=== PATIENT | male | born 1955 | race Caucasian/White ===

== ENCOUNTER 2018-07-29 16:53 | Inpatient (IN) | payer SELFPAY ==
[~2018-07-29 16:53] MED LIST: ISOVUE-370 76%-LOCM 1 ML ONE
[2018-07-29 17:08] LABS: #Basophils 0.1 thou/uL (0.0-0.2); #Eosinphils 0.2 thou/uL (0.0-0.7); #Monocytes 0.7 thou/uL (0.11-0.59); #Neutrophils 6.4 thou/uL (1.40-6.50); %Basophils 0.9 % (0.0-1.0); %Eosinophils 2.4 % (0.0-10.0); %Lymphocytes 21.5 % (21.0-51.0); %Monocytes 7.8 % (0.0-10.0); %Neutrophils 67.4 % (42.0-75.0); Hemoglobin 15.3 g/dL (14.0-18.0); Mean Corpuscular HGB CONC 34.3 g/dL (32.0-36.0); Mean Corpuscular Hemoglobin 32.6 pg (27.0-31.0); Mean Corpuscular Volume 95.1 fL (78.0-98.0); Mean Platelet Volume 6.3 fL (7.4-10.4); Platelet Count 315 thou/uL (130-400); RBC Distribution Width 12.6 % (11.5-14.5); Red Blood Cell (RBC) Count 4.68 mill/uL (4.70-6.10); White Blood Cell (WBC) Count 9.4 thou/uL (4.8-10.8)
--- NOTE | 2018-07-29 17:10 | CT ---
CT head noncontrast HISTORY: Left-sided weakness. FINDINGS: There is no evidence of acute intracranial hemorrhage or infarct. The ventricles appear nor mal in size, shape and position. There is no mass affect or shift of midline structures. Visualized paranasal sinuses remain well-aerated. IMPRESSION: No acute intracranial abnormalities are demonstrated. Findings were called to Dr. Reddy in the emergency Department at 1703 hours. Code CR.
[2018-07-29 17:15] LABS: Prothrombin Time 13.1 SEC (12.0-14.7)
--- NOTE | 2018-07-29 17:18 | RAD ---
Chest one view HISTORY: Left-sided weakness. Altered mental status. FINDINGS: No comparison. Cardiac silhouette is magnified by projection. Pulmonary vasculature is unre markable. Mediastinum is midline. No lobar consolidation or pneumothorax. IMPRESSION: No active cardiopulmonary abnormalities are demonstrated.
[2018-07-29 17:22] LABS: ALT (SGPT) 36 U/L (8-55); AST (SGOT) 21 U/L (5-34); Albumin 3.9 g/dL (3.4-4.8); Alkaline Phosphatase 115 U/L (40-150); Anion Gap 13 mmol/L (10-20); BUN (Urea Nitrogen) 25 mg/dL (8.4-25.7); Bilirubin, Total 0.7 mg/dL (0.2-1.2); CK (CPK) 17 U/L (30-200); Calc. Creatinine Clearance 0 mL/min (70-130); Calcium 9.7 mg/dL (7.8-10.44); Carbon Dioxide 24 mmol/L (23-31); Chloride 100 mmol/L (98-107); Estimated GFR-MDRD 38; Globulin 4.8 g/dL (2.4-3.5); Glucose 173 mg/dL (80-115); Potassium 4.1 mmol/L (3.5-5.1); Protein, Total 8.7 g/dL (5.8-8.1); Sodium 133 mmol/L (136-145)
--- NOTE | 2018-07-29 17:34 | CT ---
CT arteriogram neck with IV contrast and 3-D MIP imaging: CT arteriogram head with IV contrast and 3-D MIP imaging CT head with IV contrast HISTORY: Left-sided weakness. CVA. FINDINGS: Normal branching of the great vessels at the aortic arch. Nonspecific lymph nodes within th e partially visualized upper mediastinum. Small nonspecific low density nodule within the right thyroid lobe. Good flow into each carotid and vertebral system. Minimal calcification. Internal carotid arteries ar e patent. [place] is intact. Good flow into each internal cerebral and cerebellar arterial system. No abnormal areas of intracranial enhancement are apparent. IMPRESSION: No significant abnormalities are demonstrated. Findings were called to Dr. Reddy in the emergency Department at 1728 hours. Code CR
[2018-07-29] MEDS ORDERED: Nitroglycerin 2% Ointment 1 INCH/1 GM Packet ONE (17:49)
[2018-07-29] MEDS ORDERED: Acetaminophen 500 MG TAB ONE (18:09)
--- NOTE | 2018-07-29 18:13 | PDOC.FPRHP ---
- History of Present Illness Chief Complaint: L side numbness History of Present Illness: 62 yo M with PMH of HTN and IN (2014) presents for acute onset L sided weakness and numbness, with slurring of speech. 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 Reports he ran the advertisement compositor into a pole. He reports mostly left sided numbness, slurring of speech, numb LUE and LLE. Reports his back hurt right when his symptoms started. Reports a headache upon awakening for past 4 months. Reports his eyes hurt, but denies vision changes. He took double his blood pressure medications before coming in to the ED (patient takes lisinopril and cardizem). Reports he has also had tachycardia seen on his phone's mary. Patient smokes 2-3 cigars daily for past 2- 3 yrs. Reports prior 1 pack year cigarette hx. Sister reports prior alcohol abuse with legal implications. Pt reports fam history of stroke in sister, and multiple MIs in siblings and parents. In ED, NIH initially 7. CT Head neg, Patient given TPA. CTA head/neck shows no vascular abnormality. - History PMHx: IN 2014, HTN PSHx: none FHx: multiple heart attacks - siblings, parents. Social: cigars 2-3 day for 2-3 yrs; previous hx cig 1 ppd; in legal action for alcohol use - Review of Systems General: denies: fever/chills, weight/appetite/sleep changes Eyes: reports: eye pain. denies: vision changes ENT: denies: nasal congestion, rhinorrhea Respiratory: denies: cough, congestion, shortness of breath Cardiovascular: denies: chest pain, palpitation, edema Gastrointestinal: denies: nausea, vomiting, diarrhea, constipation, abdominal pain, GI bleeding Genitourinary: denies: dysuria, other (hematuria) Musculoskeletal: denies: pain, tenderness Neurological: reports: numbness, weakness - Vital signs BP: [182/106] HR: [87] RR: [18] Tmax: [] Pox: [98]% on [RA] Wt: [79 kg] - Physical Exam Constitutional: NAD, awake, alert and oriented HEENT: normocephalic and atraumatic, PERRLA, EOMI, conjunctiva clear, MMM, oropharynx clear Neck: supple, no LAD Heart: RRR, normal S1/S2, no murmurs/rubs/gallops, pulses present, no edema Lungs: CTAB, no respiratory distress, good air movement, no wheezing Abdomen: soft, non-tender, bowel sounds present, no masses/distention Musculoskeletal: normal structure, normal tone Neurological: other (L facial droop and numbness, LUE 4/5 and numb, LLE 5/5 and numb Rt side normal strength 5/5 upper and lower. Somewhat slurred speech. FTN some difficulty. L pronator drift.) Skin: no rash/lesions, good turgor Heme/Lymphatic: no unusual bruising or bleeding, no purpura Psychiatric: normal mood and affect, other (somewhat of a poor historian) FMR H&P: Results - Labs Result Diagrams: 07/29/18 16:59 07/29/18 16:59 Lab results: WBC 9.4 thou/uL (4.8-10.8) 07/29/18 16:59 Hgb 15.3 g/dL (14.0-18.0) 07/29/18 16:59 Hct 44.5 % (42.0-52.0) 07/29/18 16:59 MCV 95.1 fL (78.0-98.0) 07/29/18 16:59 Plt Count 315 thou/uL (130-400) 07/29/18 16:59 Neutrophils % 67.4 % (42.0-75.0) 07/29/18 16:59 Sodium 133 mmol/L (136-145) L 07/29/18 16:59 Potassium 4.1 mmol/L (3.5-5.1) 07/29/18 16:59 Chloride 100 mmol/L (98-107) 07/29/18 16:59 Carbon Dioxide 24 mmol/L (23-31) 07/29/18 16:59 BUN 25 mg/dL (8.4-25.7) 07/29/18 16:59 Creatinine 1.83 mg/dL (0.7-1.3) H 07/29/18 16:59 Glucose 173 mg/dL (80-115) H 07/29/18 16:59 Calcium 9.7 mg/dL (7.8-10.44) 07/29/18 16:59 Total Bilirubin 0.7 mg/dL (0.2-1.2) 07/29/18 16:59 AST 21 U/L (5-34) 07/29/18 16:59 ALT 36 U/L (8-55) 07/29/18 16:59 Alkaline Phosphatase 115 U/L (40-150) 07/29/18 16:59 Creatine Kinase 17 U/L (30-200) L 07/29/18 16:59 Serum Total Protein 8.7 g/dL (5.8-8.1) H 07/29/18 16:59 Albumin 3.9 g/dL (3.4-4.8) 07/29/18 16:59 - EKG Interpretation EKG: NSR 83, possible LVH FMR H&P: A/P - Problem List (1) Acute CVA (cerebrovascular accident) Current Visit: Yes Status: Acute Code(s): I63.9 - CEREBRAL INFARCTION, UNSPECIFIED (2) HTN (hypertension) Current Visit: Yes Status: Acute Code(s): I10 - ESSENTIAL (PRIMARY) HYPERTENSION (3) Tobacco abuse Current Visit: Yes Status: Chronic Code(s): Z72.0 - TOBACCO USE (4) Hx of myocardial infarction Current Visit: Yes Status: Acute Code(s): I25.2 - OLD MYOCARDIAL INFARCTION - Plan Acute CVA vs TIA - L sided facial droop, L arm and leg weakness and numbness - CT head neg, CTA head/neck normal - Initial NIH of 7 - S/p TPA, NIH now improved to 5 - admit to ICU for Post tpa protocol: control BP <180/105, no blood draws/ sticks for 24 hrs - UDS negative - NPO for speech - PT/OT consulted - [address] placed, may switch to MRI tomorrow - No aspirin/dvt ppx for next 24 hrs - After 24 hrs post TPA, will order TSH, FLP, Mag, Phos; will consider starting atorvastatin/asp/plavix at that time - Neuro consult in AM - Continue to monitor BP closely HTN -continue home medications Past hx IN, 2014 - aware tobacco use - employment counselor cessation Diet: NPO for speech DVT ppx: none GI ppx: none Dispo: admit to CCU inpatient for post TPA protocol PCP: Dr. Benedict Code status: Full code FMR H&P: Upper Level - Pertinent history 62 y/o M Mr Shakeel (Yasmany) presents with L sided weakness. Hx/o HTN, previous IN, and ETOH abuse. Began today with paresthesias on L side, MORGAN, slurring of speech and L sided weakness. Significant FH for CAD and early MIs. Given nitro patch for BP control in ED without much improvement. Does currently admit to MORGAN after nitro paste given. - Pertinent findings CTA head/neck: No abnormality Troponin: WNL Cr/GFR: 1.83 and 38 - Plan Date/Time: 07/29/181811 I, Hitesh Bojorquez, have evaluated this patient and agree with findings/plan as outlined by sports team marketing intern resident. Pertinent changes/additions are listed here. 1. Acute CVA - L sided facial droop and weakness that has already improved since arrival with tPA. S/p tPA administration. Will hold ASA and plan to continue statin upon discharge. tPA protocol initiated. BP goal <180/105 and will use PRN antihypertensive medications. 2. S/p tPA administration - as above 3. CHIQUITA - Will give gentle IVF. Unsure of baseline renal function. Will obtain urine studies for additional evaluation. 4. Hyperglycemia - will order A1c; no hx/o DM. Control with SSI overnight. 5. Hx/o IN - no acute issues 6. Tobacco abuse - Reflow Operator on smoking cessation. 7. Hx/o ETOH abuse - DWI months ago. Not been drinking in recent weeks. Addendum - Attending - Attending Attestation Date/Time: 07/29/182010 I personally evaluated the patient and discussed the management with Dr. Billings/ Maryellen I agree with the History, Examination, Assessment and Plan documented above with any addition or exceptions noted below. 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 Patient to ER with Initial NIH stroke score 7 and ruled in for TPA treatment at time of my exam in ER left facial paralysis and facial droop persist but improved strength Left upper ext. Patient HTN on ACEI and Cardizem 180. Patient with history ETOH abuse DWI x 3 he denies current drinking. Patient 3 children attended by sister in ER. FMHX prevalence CAD in parents and siblings. Patient states he had heart attack several years ago but sought no treatment. CHIQUITA noted initial Lab. Initial troponin negative. Admit to ICU for TPA protocol f/u swallow study ,cardiac monitoring, f/u MRI and PT/OT evaluation, fluid and electrolyte monitoring, control BP 180/105 first 24 hours s/p TPA per protocol, Consider high intensity statin when able take po and ASA per protocol. Rec observation ETOH withdrawal although patient denies any recent heavy drinking or hx of prior DTs.
[2018-07-29 19:13] LABS: Amphetamine Not Detected (NotDetected); Barbiturates Screen Not Detected (NotDetected); Benzodiazepine Screen Not Detected (NotDetected); Cocaine Metabolite Screen Not Detected (NotDetected); Medtox Control Line Valid? VALID (VALID); Medtox Reader # READER 1; Methadone Not Detected (NotDetected); Methamphetamine Not Detected (NotDetected); Opiate Screen Not Detected (NotDetected); Oxycodone Screen Not Detected (NotDetected); Phencyclidine (PCP) Not Detected (NotDetected); THC/Cannabinoid Screen Not Detected (NotDetected); Tricyclic Screen Not Detected (NotDetected)
[2018-07-29 19:23] LABS: Bilirubin Negative (Negative); Blood, Urine Negative (Negative); Clarity CLEAR (Clear); Glucose, Urine (Dipstick) Negative (Negative); Leukocyte Negative (Negative); Nitrite Negative (Negative); Protein, Urine (Dipstick) 30 mg/dL (Neg-Trace); Specific Gravity, Urine 1.024 (1.002-1.036)
[2018-07-29 19:26] LABS: Bacteria/HPF None Seen HPF (None Seen); Hyaline Casts/LPF 0-3 HYALINE CAST LPF (0-3 Hyaline); RBC/HPF 0-3 HPF (0-3); Squamous Epithelial None Seen HPF (0-3); WBC/HPF 0-3 HPF (0-3)
[2018-07-29] MEDS ORDERED: Ondansetron PF 4 MG/2 ML Vial ONE (20:28)
[2018-07-29] MEDS ORDERED: niCARdipine HCl 25 MG in Sodium Chloride 0.9% 250 ML 240 ML IVPB PRN (22:30)
[2018-07-29] MEDS ORDERED: Labetalol HCl 100 MG/20 ML VIAL SLOW IVP PRN (22:30)
[2018-07-29] MEDS ORDERED: Morphine 2 MG/ML SYRINGE SLOW IVP PRN (23:11)
[2018-07-30] MEDS: Communication Order-Pharmacy FS SCH (03:24)
[2018-07-30] MEDS: Sodium Chloride 0.9% 1,000 ML IV SCH ×4 (03:30→19:15)
--- NOTE | 2018-07-30 04:09 | PDOC.EVN ---
Event Note - Event Note Event Note: Colby hunt called from ED for acute mental status changes. Nurse was concerned, pt was drooling more, was not moving his left arm, was acting confused. Repeat CT head ordered to evaluate for intracranial bleeding. On arrival to room, patient was alert and oriented to person and self, new the president, could not tell us the date. Moving left arm. Appeared to be same as when we saw him prior. Patient's mentation change most likely due to sleepiness, as back at previous baseline once fully awake. Repeat CT head pending.
--- NOTE | 2018-07-30 06:12 | PDOC.FM ---
Addendum entered and electronically signed by Corwin Astorga MD 07/30/18 06: 59: Additional Problem CHIQUITA vs CKD - Unknown baseline - Cr 1.83 on admission - Will monitor following TPA window. Original Note: - Subjective Subjective: 62 yo male seen at bedside this AM. Patient was given TPA for acute CVA on . Patient is A&O x3 however he repetitively states he is confused. He notes that since he has been in the ED it has been a "whirlwind." He is able to articulate clearly and can follow along in conversations. Patient denies any pain, but does complain of difficulty controlling his LUE. No other complaints overnight. - Objective Vital Signs & Weight: Vital Signs (12 hours) Temp Temp Pulse Resp BP Pulse Ox Pulse Ox 07/30/18 01:35 97.7 F 95 07/30/18 00:08 98.0 F 91 18 155/100 H 98 Weight Weight 71.4 kg Most Recent Monitor Data Heart Rate from ECG 78 NIBP 149/84 NIBP BP-Mean 105 Respiration from ECG 26 SpO2 99 I&O: 07/28/18 07/29/18 07/30/18 06:59 06:59 06:59 Intake Total 0 Output Total 300 Balance -300 Result Diagrams: 07/29/18 16:59 07/29/18 16:59 Phys Exam - Physical Examination Constitutional: NAD HEENT: moist MMs Respiratory: no wheezing, clear to auscultation bilateral Cardiovascular: RRR, no significant murmur Gastrointestinal: soft, non-tender, no distention, positive bowel sounds Musculoskeletal: no edema, pulses present Neurological: moves all 4 limbs LUE weakness and clumsiness. Left facial droop. Psychiatric: A&O x 3 Skin: no rash Dx/Plan (1) Acute CVA (cerebrovascular accident) Code(s): I63.9 - CEREBRAL INFARCTION, UNSPECIFIED Status: Acute (2) HTN (hypertension) Code(s): I10 - ESSENTIAL (PRIMARY) HYPERTENSION Status: Acute Qualifiers: Hypertension type: essential hypertension Qualified Code(s): I10 - Essential (primary) hypertension (3) Hx of myocardial infarction Code(s): I25.2 - OLD MYOCARDIAL INFARCTION Status: Acute (4) Tobacco abuse Code(s): Z72.0 - TOBACCO USE Status: Chronic - Plan Plan: Acute CVA vs TIA - L sided facial droop, L arm and leg weakness and numbness - CT head neg, CTA head/neck normal - Initial NIH of 7 - S/p TPA, NIH now improved to 5 - Repeat CT in ED due to worsening symptoms showed no acute changes. - admit to ICU for Post tpa protocol: control BP <180/105, no blood draws/ sticks for 24 hrs - UDS negative - NPO for speech - PT/OT consulted - [address] placed - Consider MRI - No aspirin/dvt ppx for next 24 hrs - Will consider starting atorvastatin/asp/plavix after TPA window - Neuro consulted, appreciate recs - Continue to monitor BP closely - Patient is uninsured, will make Case Management aware for possible support. HTN -continue home medications - Diltiazem and Lisinopril at home. Past hx [place], 2015 - aware tobacco use - work counselor cessation Disposition: Stable, will continue current plan of care. Addendum - Attending - Attending Attestation Date/Time: 07/30/18 0900 I personally evaluated the patient and discussed the management with Dr. Astorga I agree with the History, Examination, Assessment and Plan documented above with any addition or exceptions noted below. 62 yo male with history of FL, HTN, and detention tobacco use admitted for ischemic CVA HD#1 Patient doing well. No acute changes overnight. Denies pain. Reports being sleepy. Able to move right and left sides. VS reviewed. Labs reviewed. Imaging reviewed. Agree with PE as documented. 1. Ischemic CVA s/p TPA: NIH score improved to 5. Able to move previously affected side. MRI in AM. Hold needle sticks until 1800 today. Stroke team following. Will need to start planing for dispo. At this point appears patient would be stable for home at discharge. Improve secondary prevention. Add FLP to AM lab. 2. HTN: Monitor closely. Keep < 160/95. Adjust home meds. 3. Tobacco Use: Cessation discussed. 4. hx of FL: Improve secondary prevention. Dispo: Patient PCP covered by [facility] [place] group. Will transfer care. Sandra
--- NOTE | 2018-07-30 08:09 | CT ---
PRELIMINARY REPORT/[facility]/EMERGENCY AFTER HOURS PROCEDURE: EXAM: CT Head Without Contrast EXAM DATE/TIME: 07/30/2018 1:17 AM CLINICAL HISTORY: 62 years old, male; Signs and symptoms; Altered mental status/memory loss; Patient HX: PT was stroke alert at 1700. PT had contrast given then. Since has been a code green for excessive tiredness and dr martin. PT reports he is very sleepy, says he's afraid he's "going to fall asleep and . " similar findings of mild weakness to l arm, awake and answering questions, no complaints of pain, small amoun t of drooling w/ l facial weakness. 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 PT lsn around 16: 00. PT l-side dominant, pmhx of HTN; Additional info: Previous images and reports have been sent and faxed. TECHNIQUE: Imaging protocol: Axial computed tomography images of the head/brain without contrast. COMPARISON: CT Brain WO Con 07/29/2018 5:00 PM FINDINGS: Brain: No acute intracranial hemorrhage or mass effect. There is mild decreased attenuation in the periventricular white matter, likely from microvascular di sease. There is a small old lacunar infarct in the right supraventricular white matter, similar to prior exa m. No definite acute infarct by CT. MRI could be more sensitive/specific for detection, as clinically di rected. Ventricles: Ventricle size is normal for age. Bones/joints: No definite acute skull fracture. Sinuses: Included paranasal sinuses are essentially clear. Mastoid air cells: No significant acute finding. IMPRESSION: 1. No acute intracranial bleed or mass effect. 2. Changes of microvascular disease, and old right lacunar infarct. 3. No definite acute infarct by CT, see above. Thank you for allowing us to participate in the care of your patient. Dictated and Authenticated by: Merrill Lagos MD 07/30/2018 2:01 AM Central Time ([place] & [place]) FINAL REPORT EMERGENCY AFTER HOURS CT OF BRAIN PERFORMED WITHOUT CONTRAST ENHANCEMENT: Date: 07/30/18 HISTORY: Stroke alert, somnolence, altered mental status, mild weakness to left arm. COMPARISON: 07/29/18. FINDINGS: Ventricular and cisternal system is within normal limits. There is an area of decreased attenuation w ithin the right periventricular white matter seen on the prior examination, consistent with an old la cunar infarct. No intracerebral hemorrhage or extra-axial fluid collections. IMPRESSION: No acute intracranial abnormalities. This report is in agreement with the preliminary report issued by [facility]. POS: GAYE
[2018-07-30] MEDS ORDERED: niCARdipine HCl 25 MG in Sodium Chloride 0.9% 250 ML 240 ML IVPB PRN (10:01)
--- NOTE | 2018-07-30 10:49 | PDOC.PN ---
- Subjective Encounter Start Date: 07/30/18 Encounter Start Time: 10:48 Subjective: CVA with L memipegia, L central 7th- ost TPA - Objective Resuscitation Status - Order Detail: 07/29/18 18:49 Resuscitation Status Routine Co-Sign Provider: Resuscitation Status: FULL: Full Resuscitation Discussed with: patient MAXIME Reviewed: Yes Vital Signs & Weight: Vital Signs (12 hours) Temp Temp Pulse Pulse Resp BP BP 07/30/18 08:29 85 185/104 H 07/30/18 07:00 98.6 F 07/30/18 04:00 98.6 F 07/30/18 01:35 97.7 F 07/30/18 00:08 98.0 F 91 18 155/100 H Pulse Ox Pulse Ox 07/30/18 08:29 07/30/18 07:00 07/30/18 04:00 07/30/18 01:35 95 07/30/18 00:08 98 Weight Weight 157 lb 6.561 oz Most Recent Monitor Data Heart Rate from ECG 81 NIBP 156/97 NIBP BP-Mean 116 Respiration from ECG 21 SpO2 98 I&O: 07/29/18 07/30/18 07/31/18 06:59 06:59 06:59 Intake Total 0 0 Output Total 600 0 Balance -600 0 Result Diagrams: 07/29/18 16:59 07/29/18 16:59 Additional Labs: Accuchecks 07/29/18 17:00 POC Glucose 169 H Phys Exam - Physical Examination Neck: no JVD Respiratory: clear to auscultation bilateral Cardiovascular: RRR, no significant murmur Gastrointestinal: soft, positive bowel sounds Musculoskeletal: no edema L central 7th palsy, dense L hemiplegia Dx/Plan (1) CVA (cerebral vascular accident) Code(s): I63.9 - CEREBRAL INFARCTION, UNSPECIFIED Status: Acute Qualifiers: CVA mechanism: thrombosis Precerebral and cerebral artery: middle cerebral artery Laterality of affected vessel: right Qualified Code(s): I63.311 - Cerebral infarction due to thrombosis of right middle cerebral artery (2) CAD (coronary artery disease) Code(s): I25.10 - ATHSCL HEART DISEASE OF [place] CORONARY ARTERY W/O ANG PCTRS Status: Acute Qualifiers: Coronary Disease-Associated Artery/Lesion type: [place] artery [place] vs. transplanted heart: [place] heart Associated angina: without angina Qualified Code(s): I25.10 - Atherosclerotic heart disease of [place] coronary artery without angina pectoris (3) Acute renal failure Status: Acute Qualifiers: Acute renal failure type: unspecified Qualified Code(s): N17.9 - Acute kidney failure, unspecified (4) HTN (hypertension) Code(s): I10 - ESSENTIAL (PRIMARY) HYPERTENSION Status: Acute Qualifiers: Hypertension type: essential hypertension Qualified Code(s): I10 - Essential (primary) hypertension (5) Tobacco abuse Code(s): Z72.0 - TOBACCO USE Status: Chronic - Plan POST TPA, -: on cardene for BP -: [facility] 07/31/18 at request of Residency program- -: patients PCP covered by [facility] * .
[2018-07-30] MEDS: Labetalol HCl 100 MG/20 ML VIAL SLOW IVP PRN ×3 (12:05→19:14)
--- NOTE | 2018-07-30 14:28 | CON ---
DATE OF CONSULTATION: 07/30/2018 REASON FOR CONSULTATION: Stroke and ICU placement. HISTORY OF PRESENT ILLNESS: This is a 62-year-old male, who presented with left arm weakness, left facial droop, and slurred speech. He was actually given tPA yesterday and has recovered some strength in his left arm. PAST MEDICAL HISTORY: 1. Myocardial infarction in 2004. 2. Hypertension. PAST SURGICAL HISTORY: None. FAMILY MEDICAL HISTORY: Remarkable for heart disease. SOCIAL HISTORY: Smokes 2 to 3 cigars per day, previously smoked 1 pack per day of cigarettes. Previously used alcohol heavily. ALLERGIES: NONE. MEDICATIONS: Prior to admission; 1. Lisinopril 5 mg daily. 2. Diltiazem 180 mg daily. REVIEW OF SYSTEMS: Otherwise negative. PHYSICAL EXAMINATION: VITAL SIGNS: Temperature 98.6; pulse 84; and blood pressure 156/82, generally it been running in the 150s to 160s. HEENT: He has obvious left-sided facial droop. Tongue protrudes midline. No oculocephalic impairments. NECK: No JVD. CHEST: Clear to auscultation. CARDIAC: S1 and S2 regular without murmur. ABDOMEN: Soft and nontender. EXTREMITIES: No clubbing, cyanosis, or edema. NEUROLOGIC: Muscle strength 4/5 in left arm, 5/5 in right arm, and 5/5 in right leg and left leg. LABORATORY DATA: White blood cell count 9.4, hematocrit 44.5, and platelet count 315. Sodium 133, potassium 4.1, BUN 25, creatinine 1.8, and glucose 173. Drug screen was negative. IMAGING STUDIES: Chest x-ray is negative. Head CT did not show any abnormalities. ASSESSMENT: 1. Cerebrovascular accident with left arm impairment and left facial droop. 2. Hypertension. RECOMMENDATIONS: 1. Neurology has been consulted. 2. Need to try to achieve better systolic blood pressure control. 3. Probably needs to start aspirin later today. 4. Stroke rehab. 5. Stable for transfer to floor when his 24-hour tPA clock is come about. Job ID: [id number]
--- NOTE | 2018-07-30 18:40 | PDOC.EVN ---
Event Note - Event Note Event Note: Documentation error: Patient is seen by PCP with contract with [facility] physicians. Dr. Tenorio, [facility] Phys[facility], has accepted transfer of care to become primary team onn 07/31/18. Dr. Kaur Felipe, FMR attending, aware and agreeable to plan.
[2018-07-30] MEDS: Atorvastatin Calcium 40 MG TAB PO SCH (20:29)
[2018-07-30] MEDS ORDERED: Aspirin Chewable 81 MG TAB PO SCH (22:00)
[2018-07-31] MEDS ORDERED: Lorazepam 2 MG/ML VIAL SLOW IVP SCH (04:15)
[2018-07-31 05:05] LABS: Cardiac Risk 5.4 (Less than 4.5); Cholesterol 162 mg/dl (< 200 Desired); HDL Cholesterol 30 mg/dL (>60 Neg Risk); LDL Cholesterol, Calculated 104 mg/dL; Magnesium 1.9 mg/dL (1.6-2.6); Triglycerides 140 mg/dL (Less than 150)
[2018-07-31] MEDS: Sodium Chloride 0.9% 1,000 ML IV SCH (05:56)
[2018-07-31] MEDS: Communication Order-Pharmacy FS SCH ×2 (05:57→21:32)
[2018-07-31] MEDS: Labetalol HCl 100 MG/20 ML VIAL SLOW IVP PRN ×3 (07:25→13:25)
--- NOTE | 2018-07-31 08:02 | PRG ---
DATE OF SERVICE: 07/31/2018 SUBJECTIVE: The patient is now over 24 hours after his tPA. He has had some residual recovery of his left arm. He still has left facial droop. OBJECTIVE: VITAL SIGNS: Temperature is 98.2, pulse 99, blood pressure 173/104, O2 saturation 100%. HEENT: Unremarkable except for the left facial droop. NECK: No JVD. LUNGS: Clear. CARDIAC: S1, S2. Regular. ABDOMEN: Soft. EXTREMITIES: No edema. NEUROLOGICAL: He still has 4/5 strength on the left arm, 5/5 throughout otherwise. LABORATORY DATA: Phosphorus 3, magnesium 1.9, HDL 30, LDL 104. ASSESSMENT: Status post cerebrovascular accident. PLAN: 1. Transfer to Stroke Floor for rehab. 2. Re-initiate the patient's outpatient lisinopril and diltiazem for blood pressure control. 3. No further pulmonary recommendations, we will sign off. Job ID: [id number]
[2018-07-31] MEDS: Aspirin Chewable 81 MG TAB PO SCH (08:35)
[2018-07-31] MEDS ORDERED: Lisinopril 5 MG TAB PO SCH ×2 (09:00→12:00)
[2018-07-31 09:36] LABS: #Eosinphils 0.2 thou/uL (0.0-0.7); #Lymphocytes 1.6 thou/uL (1.20-3.40); #Monocytes 0.7 thou/uL (0.11-0.59); #Neutrophils 6.2 thou/uL (1.40-6.50); %Basophils 0.3 % (0.0-1.0); %Eosinophils 1.7 % (0.0-10.0); %Lymphocytes 18.7 % (21.0-51.0); %Monocytes 7.8 % (0.0-10.0); %Neutrophils 71.5 % (42.0-75.0); Hemoglobin 14.8 g/dL (14.0-18.0); Mean Corpuscular HGB CONC 32.7 g/dL (32.0-36.0); Mean Corpuscular Hemoglobin 31.3 pg (27.0-31.0); Mean Corpuscular Volume 95.8 fL (78.0-98.0); Mean Platelet Volume 6.5 fL (7.4-10.4); Platelet Count 294 thou/uL (130-400); RBC Distribution Width 12.6 % (11.5-14.5); Red Blood Cell (RBC) Count 4.72 mill/uL (4.70-6.10); White Blood Cell (WBC) Count 8.7 thou/uL (4.8-10.8)
[2018-07-31 10:01] LABS: Anion Gap 12 mmol/L (10-20); BUN (Urea Nitrogen) 14 mg/dL (8.4-25.7); Calc. Creatinine Clearance 60 mL/min (70-130); Calcium 9.3 mg/dL (7.8-10.44); Carbon Dioxide 22 mmol/L (23-31); Chloride 103 mmol/L (98-107); Estimated GFR-MDRD 57; Glucose 151 mg/dL (80-115); Potassium 4.1 mmol/L (3.5-5.1); Sodium 133 mmol/L (136-145)
[2018-07-31] MEDS ORDERED: Lorazepam 0.5 MG TAB PO PRN (11:49)
[2018-07-31] MEDS: Nicotine 14 MG PATCH TD SCH (12:46)
--- NOTE | 2018-07-31 15:15 | MRI ---
MRI Brain WO Con: 07/31/2018 8:00 AM CLINICAL HISTORY: Hypersomnolence with altered mental status and left arm weakness. COMPARISON: CT head, previous day FINDINGS: Extra axial spaces: Normal in size and morphology for the patient's age. Hemorrhage: None. Ventricular system: Normal in size and morphology for the patient's age. Basal cisterns: Normal. Cerebral parenchyma: Multifocal restricted diffusion is present involving the cortex and white matter of the right frontal lobe as well as within the right globus pallidus and within the deep white matter of the right parietal lobe. There is microvascular ischemic disease. Midline shift: None. Cerebellum: Normal. Brainstem: Normal. Paranasal sinuses:Mild paranasal sinus mucosal thickening IMPRESSION:Multifocal recent infarctions of the right cerebral hemisphere. Findings predominantly loc alized to the anterior division of right MCA territory.
--- NOTE | 2018-07-31 16:25 | PDOC.PN ---
- Subjective Encounter Start Date: 07/31/18 Encounter Start Time: 11:23 Subjective: Seen and examined -: complains of ill feeling but cannot pinpoint any symptoms - Objective Resuscitation Status - Order Detail: 07/29/18 18:49 Resuscitation Status Routine Co-Sign Provider: Resuscitation Status: FULL: Full Resuscitation Discussed with: patient Vital Signs & Weight: Vital Signs (12 hours) Temp Pulse Pulse Pulse Resp BP BP 07/31/18 15:48 98.3 F 80 16 07/31/18 13:44 97.3 F L 73 20 07/31/18 13:25 87 189/104 H 07/31/18 13:00 97.6 F 07/31/18 12:38 87 167/106 H 07/31/18 10:40 85 76 181/110 H 07/31/18 10:32 87 181/110 H 07/31/18 09:00 98.6 F 07/31/18 08:35 80 173/104 H 07/31/18 08:00 07/31/18 07:25 80 173/104 H BP BP Pulse Ox Pulse Ox Pulse Ox 07/31/18 15:48 168/98 H 97 07/31/18 13:44 165/92 H 99 07/31/18 13:25 07/31/18 13:00 07/31/18 12:38 07/31/18 10:40 193/106 H 98 98 07/31/18 10:32 07/31/18 09:00 07/31/18 08:35 07/31/18 08:00 98 07/31/18 07:25 Weight Admit Weight 157 lb Weight 157 lb 8.32 oz Most Recent Monitor Data Heart Rate from ECG 78 NIBP 178/104 NIBP BP-Mean 128 Respiration from ECG 20 SpO2 100 I&O: 07/30/18 07/31/18 08/01/18 06:59 06:59 06:59 Intake Total 0 4208 780 Output Total 600 3615 900 Balance -600 593 -120 Result Diagrams: 07/31/18 09:33 07/31/18 09:33 Phys Exam - Physical Examination Constitutional: NAD HEENT: PERRLA, moist MMs Neck: supple fair air entry bilaterally with no crackles or rhonchi Cardiovascular: RRR Gastrointestinal: soft, non-tender, no distention, positive bowel sounds Musculoskeletal: no edema, pulses present conscious andalert, oriented x3. Moves all limbs Mild left hemiparesis noted.5/5 right limbs and 3-4/5 left limbs Deviation from normal: anxious and some agitation. Dx/Plan (1) CHIQUITA (acute kidney injury) Code(s): N17.9 - ACUTE KIDNEY FAILURE, UNSPECIFIED Status: Acute (2) Acute CVA (cerebrovascular accident) Code(s): I63.9 - CEREBRAL INFARCTION, UNSPECIFIED Status: Acute (3) CAD (coronary artery disease) Code(s): I25.10 - ATHSCL HEART DISEASE OF [place] CORONARY ARTERY W/O ANG PCTRS Status: Acute Qualifiers: Coronary Disease-Associated Artery/Lesion type: [place] artery [place] vs. transplanted heart: [place] heart Associated angina: without angina Qualified Code(s): I25.10 - Atherosclerotic heart disease of [place] coronary artery without angina pectoris (4) HTN (hypertension) Code(s): I10 - ESSENTIAL (PRIMARY) HYPERTENSION Status: Acute Qualifiers: Hypertension type: essential hypertension Qualified Code(s): I10 - Essential (primary) hypertension (5) Tobacco abuse Code(s): Z72.0 - TOBACCO USE Status: Chronic - Plan Increase lisinopril to 10 mg Daily. -: Start nicotine patch and prn ativan. -: Get UDS. Get Echo. 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 Transfer to stroke unit. Continue other treatments * .
[2018-07-31 18:35] LABS: Amphetamine Not Detected (NotDetected); Barbiturates Screen Not Detected (NotDetected); Benzodiazepine Screen Not Detected (NotDetected); Cocaine Metabolite Screen Not Detected (NotDetected); Medtox Control Line Valid? VALID (VALID); Medtox Reader # READER 1; Methadone Not Detected (NotDetected); Methamphetamine Not Detected (NotDetected); Opiate Screen Not Detected (NotDetected); Oxycodone Screen Not Detected (NotDetected); Phencyclidine (PCP) Not Detected (NotDetected); THC/Cannabinoid Screen Not Detected (NotDetected); Tricyclic Screen Not Detected (NotDetected)
[2018-07-31] MEDS: Atorvastatin Calcium 40 MG TAB PO SCH (21:26)
--- NOTE | 2018-07-31 23:33 | CON ---
DATE OF CONSULTATION: 07/31/2018 CONSULTING PHYSICIAN: Hospitalist Services. IMPRESSION: 1. Probable lacunar infarction. 2. Hypertension. 3. Tobacco use. PLAN: 1. Discontinue tobacco. 2. Continue aspirin. 3. Continue statin. 4. PT and OT evaluations. HISTORY OF PRESENT ILLNESS: Mr. Beckford is a 62-year-old man, who came in with acute onset of left hemiparesis. Initial CT and CT angiogram did not show any large-vessel occlusion. He was deemed to be a tPA candidate, which was administered. He was then transferred to the ICU. His symptoms have improved a bit since admission. He denies any prior history of stroke. He was not on aspirin prior to admission. He was noted to have an elevated blood sugar. He has otherwise been stable. PAST MEDICAL HISTORY: Hypertension, coronary artery disease. SOCIAL HISTORY: Positive tobacco. FAMILY HISTORY: Noncontributory. MEDICATIONS: Medication list was reviewed. REVIEW OF SYSTEMS: A 10-system review of systems is otherwise negative. PHYSICAL EXAMINATION: GENERAL: He is a thin, middle-aged man, lying in bed, in no acute distress. VITAL SIGNS: Blood pressure 161/94, pulse 88, respirations 16, and temperature 97.3. HEENT: Pupils are equal and reactive. Conjunctivae are clear. Oropharynx is clear. NECK: Supple. No lymphadenopathy. EXTREMITIES: No cyanosis, clubbing, or edema. NEUROLOGIC: He is alert and cooperative. His speech is mildly dysarthric but fluent. Cranial nerve exam is notable for significant left facial droop. Motor exam shows antigravity strength in the left arm with diminished fine motor control and rapid alternating movements. He is able to walk to the bathroom with some assistance. Sensation is intact to touch. No abnormal movements are seen. DIAGNOSTIC DATA: EKG shows a sinus rhythm. MRI of the brain shows some multifocal small areas of infarction in the right middle cerebral artery territory. SUMMARY: He is a middle-aged man with acute stroke symptoms. There is some concern for an embolic event, but more likely thromboembolic, related to underlying vascular disease. Echocardiogram should be completed and I agree with current treatment, otherwise. Job ID: [id number]
[2018-08-01 05:33] LABS: Anion Gap 13 mmol/L (10-20); BUN (Urea Nitrogen) 17 mg/dL (8.4-25.7); Calc. Creatinine Clearance 54 mL/min (70-130); Calcium 9.2 mg/dL (7.8-10.44); Carbon Dioxide 22 mmol/L (23-31); Chloride 104 mmol/L (98-107); Estimated GFR-MDRD 51; Glucose 110 mg/dL (80-115); Potassium 3.8 mmol/L (3.5-5.1); Sodium 135 mmol/L (136-145)
[2018-08-01] MEDS ORDERED: Lisinopril 10 MG TAB PO SCH (09:00)
[2018-08-01] MEDS ORDERED: Amlodipine 10 MG TAB PO SCH (09:15)
[2018-08-01] MEDS: Aspirin Chewable 81 MG TAB PO SCH (09:32)
[2018-08-01] MEDS: Nicotine 14 MG PATCH TD SCH (11:54)
[2018-08-01 13:47] VITALS: BMI 22.3
[2018-08-01] MEDS: Atorvastatin Calcium 40 MG TAB PO SCH (20:18)
--- NOTE | 2018-08-01 21:33 | PDOC.PN ---
- Subjective Encounter Start Date: 08/01/18 Encounter Start Time: 21:32 Subjective: No new problem - Objective Resuscitation Status - Order Detail: 07/29/18 18:49 Resuscitation Status Routine Co-Sign Provider: Resuscitation Status: FULL: Full Resuscitation Discussed with: patient Vital Signs & Weight: Vital Signs (12 hours) Temp Pulse Pulse Pulse Resp BP BP 08/01/18 20:07 97.8 F 98 16 08/01/18 16:00 98.5 F 96 18 165/94 H 08/01/18 14:25 111 H 97 144/99 H 08/01/18 12:00 98.2 F 99 16 162/104 H 08/01/18 11:58 08/01/18 10:27 97 171/99 H BP BP Pulse Ox 08/01/18 20:07 156/93 H 96 08/01/18 16:00 165/94 H 96 08/01/18 14:25 154/93 H 08/01/18 12:00 143/103 H 96 08/01/18 11:58 162/104 H 08/01/18 10:27 Weight Admit Weight 157 lb Weight 169 lb Most Recent Monitor Data Heart Rate from ECG 78 NIBP 178/104 NIBP BP-Mean 128 Respiration from ECG 20 SpO2 100 I&O: 07/31/18 08/01/18 08/02/18 06:59 06:59 06:59 Intake Total 4208 1275 263 Output Total 3615 1050 Balance 593 225 263 Result Diagrams: 07/31/18 09:33 08/01/18 04:22 Phys Exam - Physical Examination Constitutional: NAD HEENT: moist MMs Neck: no JVD, supple Respiratory: no rales, no rhonchi Cardiovascular: RRR Gastrointestinal: soft, non-tender, no distention, positive bowel sounds Musculoskeletal: no edema, pulses present Conscious and alert, left mild hemiparesis noted Psychiatric: A&O x 3 Dx/Plan (1) CHIQUITA (acute kidney injury) Code(s): N17.9 - ACUTE KIDNEY FAILURE, UNSPECIFIED Status: Acute Comment: Creat is up today after trending downwards. Was started on ACEI yesterday (2) Acute CVA (cerebrovascular accident) Code(s): I63.9 - CEREBRAL INFARCTION, UNSPECIFIED Status: Acute (3) CAD (coronary artery disease) Code(s): I25.10 - ATHSCL HEART DISEASE OF [place] CORONARY ARTERY W/O ANG PCTRS Status: Acute Qualifiers: Coronary Disease-Associated Artery/Lesion type: [place] artery [place] vs. transplanted heart: [place] heart Associated angina: without angina Qualified Code(s): I25.10 - Atherosclerotic heart disease of [place] coronary artery without angina pectoris (4) HTN (hypertension) Code(s): I10 - ESSENTIAL (PRIMARY) HYPERTENSION Status: Acute Qualifiers: Hypertension type: essential hypertension Qualified Code(s): I10 - Essential (primary) hypertension (5) Tobacco abuse Code(s): Z72.0 - TOBACCO USE Status: Chronic - Plan Start amlodipine and dc ACEI -: Monitor renal function in the am. -: [place] oral intake advised -: Continue other treatments * .
[2018-08-02 05:40] LABS: Anion Gap 15 mmol/L (10-20); BUN (Urea Nitrogen) 20 mg/dL (8.4-25.7); Calc. Creatinine Clearance 59 mL/min (70-130); Calcium 9.7 mg/dL (7.8-10.44); Carbon Dioxide 19 mmol/L (23-31); Chloride 104 mmol/L (98-107); Estimated GFR-MDRD 51; Glucose 119 mg/dL (80-115); Sodium 134 mmol/L (136-145)
[2018-08-02] MEDS: Aspirin Chewable 81 MG TAB PO SCH (08:28)
[2018-08-02] MEDS ORDERED: Amlodipine 10 MG TAB PO SCH (09:00)
[2018-08-02] MEDS ORDERED: Lisinopril 10 MG TAB PO SCH ×2 (10:00→12:00)
[2018-08-02] MEDS: Nicotine 14 MG PATCH TD SCH (12:46)
[2018-08-02 15:49] VITALS: BP 174/97; TEMP 98
--- NOTE | 2018-08-03 11:47 | DIS ---
DATE OF ADMISSION: 07/29/2018 DATE OF DISCHARGE: 08/02/2018 DISCHARGE DIAGNOSES: 1. Acute cerebrovascular accident with left-sided weakness and left facial droop. 2. Acute kidney injury. 3. Coronary artery disease. 4. Hypertension. 5. Tobacco abuse. HISTORY OF PRESENT ILLNESS: The patient is a 62-year-old male, who presented via the emergency department with the complaint of left-sided weakness and facial droop. In the emergency department, he had CT negative for hemorrhage and had tPA. His NIH changed from 7 to 5. The patient was subsequently admitted to the [facility] service. He subsequently had repeat CT for the slight progression of symptoms, which remained stable. He is admitted to the ICU, seen in consultation by Dr. Torres and Dr. Mendoza, and had subsequent MRI of the brain, which revealed multifocal recent infarctions of the right cerebral hemisphere localized in the anterior division of the right MCA territory. He had echocardiogram performed, which revealed EF of 50% to 55% and suggestion of diastolic dysfunction. CT angiogram showed no significant abnormalities. The patient continued to have significant elevation of his blood pressure through his hospitalization and some adjustments were made in his blood pressure medications. Ultimately, the patient wanted to go home. His sister was going to be available to live with him and take care of him and they were comfortable with the plan for disposition. Case management assisted in getting the patient prescription so that we would ensure that he had his medications at the time of discharge. The patient had also been seen and evaluated by Speech Therapy and they recommended thickened liquids. The patient was educated on this as well as a soft mechanical diet. PHYSICAL EXAMINATION: VITAL SIGNS: On the day of discharge, temperature was 98, pulse 90, respirations 20, O2 saturation 97% on room air, and blood pressure was 154/99. GENERAL APPEARANCE: Age-appropriate male, in no distress. He is awake, alert, interactive, had minimal dysarthria, and facial droop. He was able to move his left arm and make a fist with his left hand, was able to ambulate with the left leg. HEART: Regular rate and rhythm without murmurs. LUNGS: Clear to auscultation bilaterally with good chest wall expansion and air exchange. ABDOMEN: Soft, nontender, and nondistended. EXTREMITIES: Warm and dry with no cyanosis, clubbing, or edema. DISPOSITION: The patient is discharged to home. DIET: He will have a heart healthy diet. ACTIVITY: Activity level is as tolerated. He will have home health, OT, PT, and speech therapy. MEDICATIONS: 1. Changed higher dose of diltiazem at 240 mg daily. 2. Continue with Lipitor 80 mg daily. 3. Aspirin 81 mg daily. 4. Lisinopril 5 mg daily. FOLLOWUP: He is to follow up with Dr. Benedict. I spoke with Dr. Benedict about the patient's situation via telephone. He is also to follow up with Dr. Theo Mendoza and have [facility]. He can return to the hospital should he have any problems prior to his followup. Time spent in discharge activities including face to face time with patient was 35 minutes. Job ID: [id number] [facility]
== END 2018-08-02 17:25 | disposition home health service (06) | DRG 62 ==
LOC: ERS 16:53 → ERHOLD 18:03 → CCU 07-30 01:32 → 2SE 07-31 13:48
PROVIDERS: ADMIT Family Medicine; ATTEND Family Medicine
DX: I63.511 Cerebral infarction due to unspecified occlusion or stenosis of right middle cerebral artery (principal); G81.94 Hemiplegia, unspecified affecting left nondominant side; N17.9 Acute kidney failure, unspecified; R29.707 NIHSS score 7; R47.81 Slurred speech; R29.810 Facial weakness; F17.210 Nicotine dependence, cigarettes, uncomplicated; I10 Essential (primary) hypertension; I25.10 Atherosclerotic heart disease of native coronary artery without angina pectoris; R73.9 Hyperglycemia, unspecified; F10.10 Alcohol abuse, uncomplicated; I25.2 Old myocardial infarction; Z79.899 Other long term (current) drug therapy
CPT/HCPCS: 36415; 36416; 70450; 70496; 70498; 70551; 71045; 80048; 80053; 80061; 80306; 81003; 81015; 82550; 83735; 84100; 84443; 84484; 85025; 85610; 85730; 93005; 93306; 96365; 96375; J2060; J2405; J2997; J7050; Q9966

== ENCOUNTER 2019-02-21 17:35 | Inpatient (IN) | payer OTHER ==
[2019-02-21] MEDS ORDERED: Lorazepam 2 MG/ML VIAL ONE (19:19)
[2019-02-21] MEDS ORDERED: Loperamide HCl 2 MG CAP PO PRN (20:58)
[2019-02-21] MEDS ORDERED: HYDROcodone/Acetaminophen 5/325 mg Tablet PO PRN (20:58)
[2019-02-21] MEDS ORDERED: Bisacodyl 5 MG TAB PO PRN (20:58)
[2019-02-21] MEDS ORDERED: Guaifenesin DM 100-10/5 ML UDCUP PO PRN (20:58)
[2019-02-21] MEDS ORDERED: Senokot S 8.6-50 MG TAB PO PRN (20:58)
[2019-02-21] MEDS ORDERED: Bisacodyl 10 MG SUPP PR PRN (20:58)
[2019-02-21] MEDS ORDERED: Morphine 2 MG/ML SYRINGE SLOW IVP PRN (21:06)
[2019-02-21] MEDS ORDERED: cloNIDine 0.1 MG TAB PO PRN (21:06)
[2019-02-21] MEDS ORDERED: hydrALAZINE 20 MG/ML VIAL SLOW IVP PRN (21:07)
--- NOTE | 2019-02-21 21:39 | PDOC.HHP ---
Hospitalist HPI - History of Present Illness Shortness of breath History of Present Illness: Patient is a 63 year old male with PMH COPD, possible previous SD, anxiety, tobacco abuse who presents as transfer from [facility] for respiratory distress and hypoxia, currently patient on BIPAP pending IMCU transfer. Patient not currently able to verbalize as he developes dyspnea and increased work of breathing after only a few seconds off of BIPAP. Per ED documtation, patient described symptoms of shortness of breath, wheezing, coughing for a week, recently quit smoking but was heavy smoker before quitting (5 cigars a day). At outside ER, lactic acid 2.4, ABG 7.429/28.8/72/18, CXR revealed enlarged mediastinal sillhouette, RLL opacity w/ pleural fluid concerning for pneumonia. CT chest performed as well and revealed large infiltrating R hilar and mediastinal mass w/ tracheal and R bronchus involvement , appx 8x7.5x10cm, concerning for malignancy, also extensive metastatic adenopathy noted as well as potential malignant R sided effusion, as well as suspected metastatic disease to upper abdomen, multiple small liver hypodensities and L adrenal fullness noted. Patient was transferred here, on arrival was placed on BIPAP due to increased work of breathing, patient to be admitted for further management. Home meds as reported by outside hospital: amlodipine 10mg PO daily atorvastatin 80mg PO daily buproprion 150mg daily diltiazem ER 240mg daily Hospitalist ROS - Review of Systems ROS unobtainable: due to mental status - Medication Medications: unable to obtain review of systems due to current BIPAP dependance, failed trial of taking off for a few seconds to answer questions at this time. Hospitalist History - Past Medical History Other Medical History: COPD Anxiety Patient believes he had an SD in the past but did not present for medical care - Past Surgical History Other Surgical History: unable to discuss due to BIPAP dependance currently - Family History Other Family History: unable to discuss due to BIPAP dependance currently - Social History Other Social History: reportedly was heavy cigar smoker but recently quit. otherwise unable to discuss due to BIPAP dependance currently - Exam General Appearance: awake alert General - other findings: on BIPAP, mild distress Eye: PERRL ENT: moist mucosa ENT - other findings: BIPAP Neck: supple, no JVD Heart: RRR Respiratory - other findings: diffuse wheezes present on auscultation Gastrointestinal: soft, non-tender, non-distended, normal bowel sounds Extremities: no cyanosis, no clubbing, no edema Skin: no lesions, no rashes Neurological: cranial nerve grossly intact, normal sensation to touch, no weakness, no focal deficits Musculoskeletal: normal tone, normal strength Psychiatric - other findings: unable to evaluate Hospitalist Results - Labs Lab results: Labs and imaging from outside facility reviewed, see chart for detailed results or HPI above for overview of findings. Hospitalist H&P A/P - Problem (1) Acute respiratory failure with hypoxia Code(s): J96.01 - ACUTE RESPIRATORY FAILURE WITH HYPOXIA Status: Acute Assessment and Plan: Patient currently stable on BIPAP, continue in IMCU, patient with diffuse wheezing, CT imaging with likely metastatic lung cancer. Do not believe he has been diagnosed with CPOD however he has history of smoking and this could be consistent with COPD exacerbation, will consult pulmonology in AM to assist with diagnosis. - admit to IMCU - continue BIPAP to maintain sats > 92 - start scheduled + PRN duonebs, IV steroids, IV levaquin - consult pulmonology Dr Arevalo - PRN ativan for anxiety (2) Lung mass Code(s): R91.8 - OTHER NONSPECIFIC ABNORMAL FINDING OF LUNG FIELD Status: Acute Assessment and Plan: Patient CT at outside hospital very suspicious for metastatic lung cancer with possible liver or adrenal involvement, as well as tracheal and R bronchus involvement - consult environmental laboratory technician physicians Dr Arevalo (pulmonology) and Dr Arce (oncology) - treatment of acute pulmonary status as above (3) HTN (hypertension) Code(s): I10 - ESSENTIAL (PRIMARY) HYPERTENSION Status: Acute Qualifiers: Hypertension type: essential hypertension Qualified Code(s): I10 - Essential (primary) hypertension Assessment and Plan: resume home meds once patient improves enough to be sure will not need intubation, IV hydralazine ourdered PRN for the meantime (4) Hx of myocardial infarction Code(s): I25.2 - OLD MYOCARDIAL INFARCTION Status: Acute Assessment and Plan: not confirmed, resume home meds once confident that he will not need to intubated (5) Tobacco abuse Code(s): Z72.0 - TOBACCO USE Status: Chronic Assessment and Plan: reportedly quit, address once stabilized - Plan Plan: 47 minutes critical care time, patient is with one or more organ system failure requiring BIPAP to sustain life
[2019-02-21] MEDS ORDERED: Nicotine 14 MG PATCH TD SCH (22:00)
[2019-02-21] MEDS ORDERED: Famotidine 20 MG TAB PO SCH (23:00)
[2019-02-22] MEDS: methylPREDNISolone Sod Succ 40 MG VIAL IVP SCH ×3 (01:19→10:51)
[2019-02-22 05:52] LABS: #Monocytes 0.2 thou/uL (0.11-0.59); #Neutrophils 7.7 thou/uL (1.40-6.50); %Basophils 0.1 % (0.0-1.0); %Eosinophils 0.3 % (0.0-10.0); %Lymphocytes 11.6 % (21.0-51.0); %Monocytes 1.7 % (0.0-10.0); %Neutrophils 86.2 % (42.0-75.0); Hemoglobin 12.9 g/dL (14.0-18.0); Mean Corpuscular HGB CONC 35.1 g/dL (32.0-36.0); Mean Corpuscular Hemoglobin 31.7 pg (27.0-31.0); Mean Corpuscular Volume 90.3 fL (78.0-98.0); Mean Platelet Volume 7.3 fL (7.4-10.4); Platelet Count 186 thou/uL (130-400); Red Blood Cell (RBC) Count 4.06 mill/uL (4.70-6.10); White Blood Cell (WBC) Count 8.9 thou/uL (4.8-10.8)
[2019-02-22 06:19] LABS: Anion Gap 14 mmol/L (10-20); BUN (Urea Nitrogen) 32 mg/dL (8.4-25.7); Calc. Creatinine Clearance 57 mL/min (70-130); Calcium 8.9 mg/dL (7.8-10.44); Carbon Dioxide 19 mmol/L (23-31); Chloride 109 mmol/L (98-107); Estimated GFR-MDRD 59; Glucose 149 mg/dL (80-115); Sodium 138 mmol/L (136-145)
[2019-02-22] MEDS ORDERED: FLU VACC QS2019-20(6MOS UP)/PF 60 MCG/0.5 ML SYRINGE IM ONE (09:00)
[2019-02-22] MEDS: Famotidine 20 MG TAB PO SCH ×5 (09:53→23:22)
[2019-02-22] MEDS: Enoxaparin Sodium 40 MG/0.4 ML SYRINGE SC SCH (10:51)
[2019-02-22] MEDS: Lorazepam 2 MG/ML VIAL SLOW IVP PRN ×2 (11:48→22:33)
[2019-02-22] MEDS ORDERED: predniSONE 20 MG TAB PO SCH (14:00)
--- NOTE | 2019-02-22 14:36 | CON ---
DATE OF CONSULTATION: 02/22/2019 SERVICE: Pulmonary Medicine. REASON FOR CONSULTATION: Lung mass. HISTORY OF PRESENT ILLNESS: The patient is a 63-year-old white male with past medical history significant for smoking. That being said, he was in his usual state of health until he started having increasing difficulty breathing when getting around. This came on over several weeks. He presented to the emergency department, and a chest x-ray was abnormal, which prompted a CT of the chest. He was subsequently transitioned here for higher level of care. He denies any current fevers, chills, nausea, vomiting, or diarrhea. Otherwise, he is in his usual state of health. He does cough on a daily basis. He typically brings up a little bit of phlegm, but has been having a hard time doing that recently. PAST MEDICAL HISTORY: 1. COPD. 2. Anxiety disorder. 3. History of CVA. PAST SURGICAL HISTORY: None. FAMILY HISTORY: Noncontributory. SOCIAL HISTORY: He smokes 2 to 3 cigars on a daily basis. He previously smoked a pack of cigarettes on a daily basis. He has had a history of alcohol abuse. Denies any street drugs. He has no exposure to chemicals, dust, asbestos, or tuberculosis that he is aware of. ALLERGIES: NO KNOWN DRUG ALLERGIES. MEDICATIONS: List of his inpatient medications was reviewed. We will be initiating therapy for COPD exacerbation. REVIEW OF SYSTEMS: General; head, ears, eyes, nose, throat; cardiovascular; respiratory; GI; ; musculoskeletal; neurologic; and skin are negative except as mentioned in the HPI. PHYSICAL EXAMINATION: VITAL SIGNS: Afebrile, pulse 113, blood pressure 128/88, respirations 21, and saturation 96% on 3 L nasal cannula. GENERAL: The patient is awake and alert, in no apparent distress. LUNGS: Good air entry on the left. There is decreased air entry at the right. There is a prolonged expiratory phase. A fixed wheeze is present. HEART: Normal rate and regular. ABDOMEN: Soft, nontender, and nondistended. Bowel sounds are positive. MUSCULOSKELETAL: No cyanosis or clubbing. There is no pitting in the bilateral lower extremities. NEUROLOGIC: Grossly nonfocal. LABORATORY DATA: WBC 8.9, hemoglobin 12.9, platelets 186,000. Neutrophil count is 86%. INR 1.0. A pH 7.23 and downtrending. Basic metabolic profile is otherwise unremarkable. Urinalysis is negative. Urine drug screen is negative. IMAGING DATA: CT of the chest from outside hospital demonstrates a right hilar mass that appears to extrinsically and/or intrinsically compress the right mainstem bronchus part of the distal trachea. He also has a [id number] pleural effusion on the right. I cannot see the takeoff or any of the right upper lobe. ASSESSMENT: 1. Acute hypoxic respiratory failure. 2. Right hilar mass with extrinsic compression of the right mainstem bronchus. 3. Pleural effusion, large. 4. Chronic obstructive pulmonary disease with acute exacerbation. DISCUSSION AND PLAN: We will proceed with a thoracentesis. This will hopefully be for both diagnostic and therapeutic purposes. If the cytology on this is negative, we will proceed with bronchoscopy early next week. At this point, the patient is having significant difficulty with breathing associated with a fixed lesion in the right mainstem bronchus. If he decompensates further, he will get some mileage out of positive pressure ventilation, but we will not have definitive therapy at this location. If we have to intubate him, we will do a quick surveillance bronchoscopy to see whether or not there would be any benefit to interventional pulmonary maneuvers. I will initiate steroids, nebulized medications, and antibiotic for treating a COPD exacerbation, though it is not clear to me whether or not this type of thing is actually occurring. Hopefully, we will know more after the thoracentesis and provide the patient with some degree of relief. 70 minutes have been devoted to this patient in various activities. I personally reviewed all imaging studies and laboratory data noted within this document. For fifty percent of this time, I was interacting with the patient at the bedside or coordinating care with the care team. For the remainder of the time I was immediately available to the patient in the hospital unit. Job ID: [id number] MTDD
[2019-02-22 15:19] LABS: Pleural Fluid, Protein 4.9 g/dL
[2019-02-22 15:29] LABS: RBC Count-Automated (BF) 6427 /cumm; WBC/Nucleated-Auto (BF) 4363 uL
[2019-02-22 15:32] LABS: Fluid, pH - Pleural Fld 7.24 (7.60 - 7.66)
[2019-02-22 16:02] LABS: Body Fluid Source Thoracentesis Fluid
[2019-02-22 16:03] LABS: BF Color Yellow; Clarity Cloudy/Turbid (Clear)
[2019-02-22 16:04] LABS: Tube # 2
[2019-02-22 16:09] LABS: Cell Count Non Hematic 85 %; Eosinophils 3 %; Lymphocytes 12 %
[2019-02-22] MEDS: Sodium Chloride 0.45% 1,000 ML IV SCH (16:12)
--- NOTE | 2019-02-22 16:49 | PDOC.HOSPP ---
- Subjective Encounter Date: 02/22/19 Encounter Time: 16:51 Subjective: Pt seen for followup re: acute hypoxic respiratory failure. Says he feels ok. SOBOE. - Objective Vital Signs & Weight: Vital Signs (12 hours) Temp Pulse Resp Pulse Ox 02/22/19 15:14 99.8 F H 02/22/19 14:52 121 H 21 H 97 02/22/19 12:00 96 02/22/19 11:13 99.3 F 02/22/19 10:58 113 H 21 H 96 02/22/19 08:00 95 02/22/19 07:50 97 02/22/19 07:47 99.0 F 107 H 23 H 94 L Weight Admit Weight 145 lb 15.136 oz Weight 145 lb 15.136 oz Most Recent Monitor Data Heart Rate from ECG 124 NIBP 123/87 NIBP BP-Mean 99 Respiration from ECG 25 SpO2 97 I&O: 02/21/19 02/22/19 02/23/19 06:59 06:59 06:59 Output Total 575 Balance -575 Result Diagrams: 02/22/19 05:26 02/22/19 05:26 Additional Labs: Labs and MARs reviewed by me EKG Reviewed by me: Yes (Tele: NSR) Hospitalist ROS - Review of Systems Respiratory: reports: cough, dry, SOB with excertion. denies: shortness of breath, hemoptysis, pleuritic pain, sputum, wheezing Cardiovascular: denies: chest pain, palpitations, orthopnea, paroxysmal noc. dyspnea, edema, light headedness - Medication Medications: Active Medications Generic Name Dose Route Start Last Admin Trade Name Freq PRN Reason Stop Dose Admin Albuterol/Ipratropium 3 ml 02/21/19 22:30 02/22/19 14:52 Duoneb NEB 3 ml [id number] CHELSEA Administration Enoxaparin Sodium 40 mg 02/22/19 09:00 02/22/19 10:51 Lovenox SC 40 mg 0900 CHELSEA Administration Famotidine 20 mg 02/21/19 21:00 02/22/19 10:57 Pepcid PO Not Given BID CHELSEA Levofloxacin 750 mg/ Device 150 mls @ 100 mls/hr 02/22/19 09:00 02/22/19 09: 50 IVPB 150 mls Q24HR CHELSEA Administration Sodium Chloride 1,000 mls @ 75 mls/hr 02/22/19 14:30 02/22/19 16:12 1/2 Normal Saline IV 1,000 mls .[id number] CHELSEA Administration Lorazepam 1 mg 02/21/19 21:06 02/22/19 11:48 Ativan SLOW IVP 1 mg Q4H PRN Administration Anxiety/Agitation Sodium Chloride 10 ml 02/22/19 09:00 02/22/19 10:52 Flush - Normal Saline IVF 10 ml Q12HR CHELSEA Administration - Exam General Appearance: NAD Eye: anicteric sclera ENT: no oropharyngeal lesions Neck: supple Heart: RRR Respiratory: CTAB Gastrointestinal: soft, non-tender Extremities: no cyanosis Musculoskeletal: diffuse muscle atrophy Psychiatric: normal affect, normal behavior Hosp A/P (1) Acute respiratory failure with hypoxia Code(s): J96.01 - ACUTE RESPIRATORY FAILURE WITH HYPOXIA Status: Acute (2) Lung mass Code(s): R91.8 - OTHER NONSPECIFIC ABNORMAL FINDING OF LUNG FIELD Status: Acute (3) CAD (coronary artery disease) Code(s): I25.10 - ATHSCL HEART DISEASE OF [place] CORONARY ARTERY W/O ANG PCTRS Status: Chronic Qualifiers: Coronary Disease-Associated Artery/Lesion type: [place] artery [place] vs. transplanted heart: [place] heart Associated angina: without angina Qualified Code(s): I25.10 - Atherosclerotic heart disease of [place] coronary artery without angina pectoris (4) HTN (hypertension) Code(s): I10 - ESSENTIAL (PRIMARY) HYPERTENSION Status: Chronic Qualifiers: Hypertension type: essential hypertension Qualified Code(s): I10 - Essential (primary) hypertension (5) Tobacco abuse Code(s): Z72.0 - TOBACCO USE Status: Chronic - Plan Continue BIPAP PRN, oxygen PRN, bronchodilators, levofloxacin. s/p thoracentesis, await cytology result. Monitor vital signs, titrate antihypertensives as needed. resume lisinopril. If BP stable, resume CCB tomorrow. Resume statin.
--- NOTE | 2019-02-22 21:08 | CON ---
DATE OF CONSULTATION: REASON FOR CONSULTATION: Lung mass. HISTORY OF PRESENT ILLNESS: Mr. Beckford is a 63-year-old gentleman with a past medical history of COPD, anxiety, and chronic kidney disease, who presented to the [facility] Emergency Department with several-day history of shortness of breath. He underwent a chest x-ray, which showed right basilar opacification and right pleural effusion. He then underwent a CT scan of his chest, which showed a large heterogeneous soft tissue mass in the mediastinum and right hilum, measured approximately 8.7 x 7.1 x 10 cm. There was a large right pleural effusion and mild to moderate pericardial fluid. He was hypoxic and placed on BiPAP, transferred to this facility for further workup. He has a history of heavy smoking. He was seen by Dr. Cunningham, who performed a thoracentesis on the right pleural effusion. Cytology is currently pending. PAST MEDICAL HISTORY: 1. CVA. 2. COPD. 3. Hyperlipidemia. 4. Renal impairment. 5. Anxiety. PAST SURGICAL HISTORY: None. ALLERGIES: NO KNOWN DRUG ALLERGIES. HOME MEDICATIONS: 1. Amlodipine. 2. Atorvastatin. 3. Bupropion. 4. Diltiazem. FAMILY HISTORY: Coronary artery disease. SOCIAL HISTORY: Smoker. History of alcohol use. REVIEW OF SYSTEMS: A 10-point review of systems is negative except for shortness of breath, weakness and cough. PHYSICAL EXAMINATION: VITAL SIGNS: Temperature is 99.3, pulse is 113, respiratory rate 21, BP is 128/88. He is 96% on 2 L. GENERAL: This is a disheveled male, in no acute distress. HEENT: Normocephalic, atraumatic. Pupils are equal and reactive to light. NECK: Supple. CV: Regular rate and rhythm. He is tachycardic. LUNGS: Decreased on the right. ABDOMEN: Soft. EXTREMITIES: No clubbing or cyanosis. SKIN: No rash. HEMATOLOGICAL: No petechiae or purpura. NEUROLOGICAL: Nonfocal. PERTINENT LABS AND X-RAYS: Current WBCs are 8.9, hemoglobin 12.9, hematocrit 36.7, platelet count is 186,000, 86% neutrophils, 11% lymphocytes. Sodium is 138, potassium 4.0, chloride 109, CO2 is 19, BUN is 32, creatinine 1.23, calcium 8.9, bilirubin 1.1, AST 62, alkaline phosphatase is 306. Serum total protein is 8.9. Radiology per HPI. ASSESSMENT: 1. Large hilar mass, likely malignant. 2. History of chronic obstructive pulmonary disease and tobacco use. DISCUSSION: The patient has had a thoracentesis by Dr. Cunningham. Cytology will be pending. If diagnostic, we will move forward with immunohistochemical studies. If nondiagnostic, he will likely need a bronchoscopy for tissue. We will return once diagnosis has been established. He will consider further staging with x-rays once diagnosis established. Thank for the consult. Job ID: [id number]
[2019-02-22] MEDS: Atorvastatin Calcium 40 MG TAB PO SCH (23:22)
--- NOTE | 2019-02-23 00:50 | OP ---
DATE OF PROCEDURE: 02/22/2019 SERVICE: Pulmonary Medicine. PROCEDURE PERFORMED: Right-sided pleural drainage with catheter insertion under ultrasound guidance. CONSENT: Risks and benefits of the procedure were discussed with the patient at bedside. All questions were answered and alternative options explained. MEDICATIONS USED: Lidocaine 1% without epinephrine, 10 mL. PREOPERATIVE DIAGNOSES: 1. Acute hypoxic respiratory failure. 2. Pleural effusion. POSTPROCEDURE DIAGNOSES: 1. Acute hypoxic respiratory failure. 2. Pleural effusion. DESCRIPTION OF PROCEDURE: Time-out was performed by the procedure team and the patient. The patient was positively identified using name and date of . The procedure site was marked. Vital sign monitoring was accomplished by noninvasive hemodynamic monitoring, pulse oximetry, and telemetry. In the seated position, the right posterior hemithorax was examined using ultrasound probe. The diaphragm and pleural fluid were easily identified. There was a large free-flowing pocket of fluid. The skin was prepped and draped in sterile fashion and anesthetized with 1% lidocaine without epinephrine. A finder needle was inserted in the pleural space with return of cloudy ginny pleural fluid. A pleural drainage catheter was inserted at the same location. A total quantity of 1200 mL of pleural fluid was withdrawn by syringe pump technique. A sample was sent for analysis. Evacuation of fluid was terminated because we arrived at -22 cm of water pressure. The intact catheter was withdrawn on exhalation and a sterile dressing was applied. The patient had stable vitals throughout the entire procedure. ESTIMATED BLOOD LOSS: Two mL. COMPLICATIONS: None. Job ID: [id number]
[2019-02-23 05:52] LABS: #Lymphocytes 0.9 thou/uL (1.20-3.40); #Monocytes 0.9 thou/uL (0.11-0.59); #Neutrophils 11.2 thou/uL (1.40-6.50); %Basophils 0.1 % (0.0-1.0); %Eosinophils 0.2 % (0.0-10.0); %Lymphocytes 7.1 % (21.0-51.0); %Monocytes 6.5 % (0.0-10.0); %Neutrophils 86.1 % (42.0-75.0); Hemoglobin 12.4 g/dL (14.0-18.0); Mean Corpuscular Hemoglobin 31.8 pg (27.0-31.0); Mean Corpuscular Volume 90.8 fL (78.0-98.0); Mean Platelet Volume 7.4 fL (7.4-10.4); Platelet Count 210 thou/uL (130-400); RBC Distribution Width 13.3 % (11.5-14.5); Red Blood Cell (RBC) Count 3.91 mill/uL (4.70-6.10)
[2019-02-23] MEDS: Sodium Chloride 0.45% 1,000 ML IV SCH ×2 (06:03→20:35)
[2019-02-23] MEDS: Lorazepam 2 MG/ML VIAL SLOW IVP PRN ×3 (06:06→22:29)
[2019-02-23 06:08] LABS: Anion Gap 16 mmol/L (10-20); BUN (Urea Nitrogen) 42 mg/dL (8.4-25.7); Calc. Creatinine Clearance 48 mL/min (70-130); Carbon Dioxide 18 mmol/L (23-31); Chloride 107 mmol/L (98-107); Estimated GFR-MDRD 49; Glucose 155 mg/dL (80-115); Potassium 3.8 mmol/L (3.5-5.1); Sodium 137 mmol/L (136-145)
[2019-02-23] MEDS ORDERED: predniSONE 20 MG TAB PO SCH (08:00)
[2019-02-23] MEDS: Ondansetron PF 4 MG/2 ML Vial IVP PRN ×2 (08:03→15:11)
[2019-02-23] MEDS: Enoxaparin Sodium 40 MG/0.4 ML SYRINGE SC SCH (08:58)
[2019-02-23] MEDS: Famotidine 20 MG TAB PO SCH ×3 (08:59→20:36)
[2019-02-23] MEDS: Lisinopril 5 MG TAB PO SCH (08:59)
--- NOTE | 2019-02-23 12:54 | PDOC.HOSPP ---
- Subjective Encounter Date: 02/23/19 Encounter Time: 12:30 Subjective: Expresses no new complaint - Objective Vital Signs & Weight: Vital Signs (12 hours) Temp Pulse Resp Pulse Ox 02/23/19 10:39 99.4 F 02/23/19 08:59 111 H 02/23/19 08:00 96 02/23/19 07:26 111 H 23 H 97 02/23/19 07:12 99.2 F 02/23/19 04:00 99.3 F 96 02/23/19 02:19 115 H 23 H 97 Weight Admit Weight 145 lb 15.136 oz Weight 145 lb 4.554 oz Most Recent Monitor Data Heart Rate from ECG 115 NIBP 141/103 NIBP BP-Mean 115 Respiration from ECG 19 SpO2 94 I&O: 02/22/19 02/23/19 02/24/19 06:59 06:59 06:59 Intake Total 1076 Output Total 575 7790 Balance -950 -144 Result Diagrams: 02/23/19 05:13 02/23/19 05:13 Hospitalist ROS - Medication Medications: Active Medications Generic Name Dose Route Start Last Admin Trade Name Freq PRN Reason Stop Dose Admin Hydrocodone Bitart/Acetaminophen 1 tab 02/21/19 20:58 02/23/19 06:04 [place] 5/325 PO 1 tab Q4H PRN Administration Moderate Pain (4-6) Albuterol/Ipratropium 3 ml 02/21/19 22:30 02/23/19 10:34 Duoneb NEB Not Given [id number] CHELSEA Atorvastatin Calcium 80 mg 02/22/19 21:00 02/22/19 23:22 Lipitor PO 80 mg HS CHELSEA Administration Enoxaparin Sodium 40 mg 02/22/19 09:00 02/23/19 08:58 Lovenox SC 40 mg 0900 CHELSEA Administration Famotidine 20 mg 02/21/19 21:00 02/23/19 09:10 Pepcid PO Not Given BID CHELSEA Levofloxacin 750 mg/ Device 150 mls @ 100 mls/hr 02/22/19 09:00 02/23/19 08: 58 IVPB 150 mls Q24HR CHELSEA Administration Sodium Chloride 1,000 mls @ 75 mls/hr 02/22/19 14:30 02/23/19 06:03 1/2 Normal Saline IV 1,000 mls .[id number] CHELSEA Administration Levofloxacin 750 mg 02/23/19 06:00 02/23/19 06:05 Levaquin PO 02/26/19 06:01 750 mg 0600 CHELSEA Administration Lisinopril 5 mg 02/23/19 09:00 02/23/19 08:59 Zestril PO 5 mg DAILY CHELSEA Administration Lorazepam 1 mg 02/21/19 21:06 02/23/19 12:31 Ativan SLOW IVP 1 mg Q4H PRN Administration Anxiety/Agitation Ondansetron HCl 4 mg 02/21/19 20:58 02/23/19 08:03 Zofran IVP 4 mg Q6H PRN Administration Nausea/Vomiting Prednisone 40 mg 02/23/19 08:00 02/23/19 08:59 Prednisone PO 02/26/19 08:01 40 mg QAM-WM CHELSEA Administration Sodium Chloride 10 ml 02/22/19 09:00 02/23/19 08:59 Flush - Normal Saline IVF 10 ml Q12HR CHELSEA Administration - Exam Neck: no JVD Heart: RRR Respiratory - other findings: Decreased air entry at right base.. Gastrointestinal: soft Extremities: no edema Neurological: no focal deficits Hosp A/P (1) Acute respiratory failure with hypoxia Code(s): J96.01 - ACUTE RESPIRATORY FAILURE WITH HYPOXIA Status: Acute (2) Lung mass Code(s): R91.8 - OTHER NONSPECIFIC ABNORMAL FINDING OF LUNG FIELD Status: Acute (3) CAD (coronary artery disease) Code(s): I25.10 - ATHSCL HEART DISEASE OF [place] CORONARY ARTERY W/O ANG PCTRS Status: Chronic Qualifiers: Coronary Disease-Associated Artery/Lesion type: [place] artery [place] vs. transplanted heart: [place] heart Associated angina: without angina Qualified Code(s): I25.10 - Atherosclerotic heart disease of [place] coronary artery without angina pectoris (4) HTN (hypertension) Code(s): I10 - ESSENTIAL (PRIMARY) HYPERTENSION Status: Chronic Qualifiers: Hypertension type: essential hypertension Qualified Code(s): I10 - Essential (primary) hypertension (5) Tobacco abuse Code(s): Z72.0 - TOBACCO USE Status: Chronic - Plan F/U pleural fluid studies. f/u with pulmonary, oncology.. Continue current therapy.
--- NOTE | 2019-02-23 14:22 | PRG ---
DATE OF SERVICE: 02/23/2019 INTERVAL HISTORY: The patient is doing okay from respiratory standpoint. He appears to be a little bit more comfortable today compared to yesterday. That being said, his work of breathing is still quite large. We are awaiting the pathology from his thoracentesis. My suspicion is we may be dealing with a small-cell lung cancer. OBJECTIVE: VITAL SIGNS: Afebrile with a T-max of 99.4, pulse 115, blood pressure 141/103, respirations 19, and saturation 94%, currently on room air. GENERAL: The patient is awake and alert, in no apparent distress. LUNGS: Decent air entry. There is a slightly prolonged expiratory phase. No wheezing or crackles are appreciated. HEART: Normal rate and regular. ABDOMEN: Soft, nontender, nondistended. Bowel sounds are positive. MUSCULOSKELETAL: No cyanosis or clubbing. No pitting in the bilateral lower extremities. NEUROLOGIC: Grossly nonfocal. LABORATORY DATA: WBC 13.20, hemoglobin 12.4, platelets 210,000. Creatinine uptrending to 1.46, BUN 42. Basic metabolic profile is otherwise unremarkable. Bicarb downtrending to 18. Pleural fluid is clearly an exudate. The predominant cell type is non-hematologic cells. ASSESSMENT: 1. Acute hypoxic respiratory failure, resolved following thoracentesis. 2. Right hilar mass with extrinsic compression of the right mainstem bronchus. 3. Pleural effusion, large, status post thoracentesis demonstrating an exudate with non-hematologic predominant cells. 4. Chronic obstructive pulmonary disease with acute exacerbation. DISCUSSION AND PLAN: We are awaiting cytology. My suspicion is for dealing with a small-cell lung cancer or lymphoma. If this is the case, the patient will likely require fairly urgent radiation therapy. Prior to doing this, he may benefit from a stenting procedure to prevent complete collapse of the right bronchus intermedius. If he deteriorates, he will benefit from positive airway pressure ventilation. Stenting and brachytherapy would be reasonable options, but they are not available at this institution. He needs remain in the [facility]. Job ID: [id number] MTDD
[2019-02-23] MEDS ORDERED: Promethazine HCl 25 MG/ML VIAL IM/IV PRN (15:25)
[2019-02-23] MEDS: methylPREDNISolone Sod Succ 40 MG VIAL IVP SCH (20:35)
[2019-02-23] MEDS: Atorvastatin Calcium 40 MG TAB PO SCH (20:36)
[2019-02-24 04:25] LABS: #Lymphocytes 0.9 thou/uL (1.20-3.40); #Monocytes 0.5 thou/uL (0.11-0.59); #Neutrophils 9.6 thou/uL (1.40-6.50); %Eosinophils 0.3 % (0.0-10.0); %Lymphocytes 8.4 % (21.0-51.0); %Monocytes 4.4 % (0.0-10.0); %Neutrophils 86.9 % (42.0-75.0); Hemoglobin 12.3 g/dL (14.0-18.0); Mean Corpuscular HGB CONC 35.4 g/dL (32.0-36.0); Mean Corpuscular Hemoglobin 32.4 pg (27.0-31.0); Mean Corpuscular Volume 91.5 fL (78.0-98.0); Mean Platelet Volume 7.4 fL (7.4-10.4); Platelet Count 188 thou/uL (130-400); RBC Distribution Width 13.4 % (11.5-14.5); Red Blood Cell (RBC) Count 3.81 mill/uL (4.70-6.10); White Blood Cell (WBC) Count 11.1 thou/uL (4.8-10.8)
[2019-02-24 04:39] LABS: Anion Gap 12 mmol/L (10-20); BUN (Urea Nitrogen) 36 mg/dL (8.4-25.7); Calc. Creatinine Clearance 56 mL/min (70-130); Calcium 8.7 mg/dL (7.8-10.44); Carbon Dioxide 22 mmol/L (23-31); Chloride 107 mmol/L (98-107); Estimated GFR-MDRD 58; Glucose 150 mg/dL (80-115); Sodium 137 mmol/L (136-145)
[2019-02-24] MEDS: Lorazepam 2 MG/ML VIAL SLOW IVP PRN ×3 (06:21→20:00)
[2019-02-24] MEDS: Sodium Chloride 0.45% 1,000 ML IV SCH ×3 (07:07→23:36)
--- NOTE | 2019-02-24 08:52 | RAD ---
RADIOGRAPH CHEST 1 VIEW: DATE: 02/24/2019 TIME: 8:23 AM HISTORY: 63-year-old male dyspnea COMPARISON: 07/29/2018 FINDINGS: New moderately large right mediastinal and/or hilar mass. No cardiomegaly, pulmonary edema, consolida tion, or pneumothorax. 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 Recommend chest CT (preferably with I V contrast unless contraindicated).
[2019-02-24] MEDS: Enoxaparin Sodium 40 MG/0.4 ML SYRINGE SC SCH (09:34)
[2019-02-24] MEDS: methylPREDNISolone Sod Succ 40 MG VIAL IVP SCH ×2 (09:34→20:26)
[2019-02-24] MEDS: Lisinopril 5 MG TAB PO SCH (09:37)
[2019-02-24] MEDS: Famotidine 20 MG TAB PO SCH ×2 (09:37→20:26)
[2019-02-24] MEDS ORDERED: Midazolam HCl 2 mg/2 ml Vial ONE (10:32)
[2019-02-24] MEDS ORDERED: Propofol 1,000 MG/100 ML VIAL IV ONE (10:32)
--- NOTE | 2019-02-24 10:39 | PDOC.HOSPP ---
- Subjective Encounter Date: 02/24/19 Encounter Time: 10:30 Subjective: Acute SOB, on BiPAP.. - Objective Vital Signs & Weight: Vital Signs (12 hours) Temp Pulse Resp Pulse Ox 02/24/19 09:37 116 H 02/24/19 07:08 98.7 F 02/24/19 06:47 116 H 22 H 99 02/24/19 06:44 117 H 23 H 99 02/24/19 03:59 99.8 F H 02/23/19 23:41 99.6 F 02/23/19 23:02 123 H 26 H 96 02/23/19 22:57 121 H 29 H 97 Weight Admit Weight 145 lb 15.136 oz Weight 145 lb 4.554 oz Most Recent Monitor Data Heart Rate from ECG 120 NIBP 130/98 NIBP BP-Mean 108 Respiration from ECG 24 SpO2 94 I&O: 02/23/19 02/24/19 02/25/19 06:59 06:59 06:59 Intake Total 1076 1330 Output Total 1700 700 Balance -624 630 Result Diagrams: 02/24/19 03:46 02/24/19 03:46 Hospitalist ROS - Medication Medications: Active Medications Generic Name Dose Route Start Last Admin Trade Name Freq PRN Reason Stop Dose Admin Hydrocodone Bitart/Acetaminophen 1 tab 02/21/19 20:58 02/23/19 06:04 [place] 5/325 PO 1 tab Q4H PRN Administration Moderate Pain (4-6) Albuterol/Ipratropium 3 ml 02/21/19 22:30 02/24/19 06:44 Duoneb NEB 3 ml [id number] CHELSEA Administration Atorvastatin Calcium 80 mg 02/22/19 21:00 02/23/19 20:36 Lipitor PO 80 mg HS CHELSEA Administration Enoxaparin Sodium 40 mg 02/22/19 09:00 02/24/19 09:34 Lovenox SC 40 mg 0900 CHELSEA Administration Famotidine 20 mg 02/21/19 21:00 02/24/19 09:37 Pepcid PO Not Given BID CHELSEA Levofloxacin 750 mg/ Device 150 mls @ 100 mls/hr 02/22/19 09:00 02/24/19 09: 34 IVPB 150 mls Q24HR CHELSEA Administration Sodium Chloride 1,000 mls @ 75 mls/hr 02/22/19 14:30 02/24/19 07:07 1/2 Normal Saline IV Not Given .[id number] CHELSEA Levofloxacin 750 mg 02/23/19 06:00 02/24/19 05:44 Levaquin PO 02/26/19 06:01 750 mg 0600 CHELSEA Administration Lisinopril 5 mg 02/23/19 09:00 02/24/19 09:37 Zestril PO Not Given DAILY CHELSEA Lorazepam 1 mg 02/21/19 21:06 02/24/19 10:15 Ativan SLOW IVP 1 mg Q4H PRN Administration Anxiety/Agitation Methylprednisolone Sodium Succinate 40 mg 02/23/19 21:00 02/24/19 09:34 Solu-Medrol IVP 40 mg Q12HR CHELSEA Administration Ondansetron HCl 4 mg 02/21/19 20:58 02/23/19 15:11 Zofran IVP 4 mg Q6H PRN Administration Nausea/Vomiting Promethazine HCl 25 mg 02/23/19 15:25 02/23/19 22:09 Phenergan IM/IV 25 mg Q6H PRN Administration Nausea/Vomiting Sodium Chloride 10 ml 02/22/19 09:00 02/24/19 09:35 Flush - Normal Saline IVF 10 ml Q12HR CHELSEA Administration - Exam Neck: no JVD Heart: RRR Respiratory: rhonchi Gastrointestinal: soft Extremities: no edema Neurological: no focal deficits Hosp A/P (1) Acute respiratory failure with hypoxia Code(s): J96.01 - ACUTE RESPIRATORY FAILURE WITH HYPOXIA Status: Acute Plan: Cest x-ray reviewed, significant elevation of right hemidiaphragm consistent with atelectasis (2) Lung mass Code(s): R91.8 - OTHER NONSPECIFIC ABNORMAL FINDING OF LUNG FIELD Status: Acute (3) CAD (coronary artery disease) Code(s): I25.10 - ATHSCL HEART DISEASE OF [place] CORONARY ARTERY W/O ANG PCTRS Status: Chronic Qualifiers: Coronary Disease-Associated Artery/Lesion type: [place] artery [place] vs. transplanted heart: [place] heart Associated angina: without angina Qualified Code(s): I25.10 - Atherosclerotic heart disease of [place] coronary artery without angina pectoris Plan: stable.. (4) HTN (hypertension) Code(s): I10 - ESSENTIAL (PRIMARY) HYPERTENSION Status: Chronic Qualifiers: Hypertension type: essential hypertension Qualified Code(s): I10 - Essential (primary) hypertension Plan: BP satisfactory.. (5) Tobacco abuse Code(s): Z72.0 - TOBACCO USE Status: Chronic - Plan F/U pleural fluid studies. f/u with pulmonary, oncology.. Continue current therapy. Worsening respiratory status most likely related to atelectasis
[2019-02-24] MEDS ORDERED: Lidocaine 2% Jelly 5 ML TUBE ONE (11:04)
[2019-02-24] MEDS ORDERED: Lorazepam 2 MG/ML VIAL ONE (12:28)
--- NOTE | 2019-02-24 12:34 | PRG ---
DATE OF SERVICE: 02/24/2019 SERVICE: Pulmonary Medicine. INTERVAL HISTORY: The patient is doing very poorly from respiratory standpoint. He has developed increasing respiratory difficulties overnight and became essentially BiPAP dependent. There were no other fevers or chills. Otherwise, he is in his usual state of health. PHYSICAL EXAMINATION: VITAL SIGNS: Afebrile, pulse 122, blood pressure 157/103, respirations 28, saturation 94%, on 40% FiO2 delivered via BiPAP at 12/5. GENERAL: The patient is toxic appearing. He is in moderate to severe respiratory distress. HEENT: Normocephalic and atraumatic. Sclerae white. Conjunctivae pink. Oral mucosa is moist and without lesions. No cervical lymphadenopathy is present. HEART: Normal rate. Regular. ABDOMEN: Soft, nontender, and nondistended. Bowel sounds are positive. MUSCULOSKELETAL: No cyanosis or clubbing. There is no pitting in the bilateral lower extremities. NEUROLOGIC: Grossly nonfocal. LABORATORY DATA: WBC 11.1, hemoglobin 12.3, platelets 188,000. Creatinine 1.25 and downtrending, BUN 36. Basic metabolic profile is otherwise unremarkable. Glucose 150. The pleural fluid is consistent with an exudate. It is non-hematologic predominant cell type. All cultures remain negative to date. IMAGING: Chest x-ray demonstrates right suprahilar mass. There is likely a layering effusion on the right side. It does not appear that effusion has recollected to a significant extent. ASSESSMENT: 1. Acute hypoxic respiratory failure. 2. Chronic obstructive pulmonary disease with acute exacerbation. 3. Suspected cancer. 4. Pleural effusion, status post thoracentesis, cytology pending. DISCUSSION AND PLAN: I will be intubating this patient. We are awaiting cytology. If it shows small-cell lung cancer, he would be a candidate for therapy, but will need to get a stent across his airway as I believe it is critically stenosed. After we intubate him, we will be able to get a bronchoscopy. This will help delineate his anatomy. CRITICAL CARE TIME: 30 minutes, unbundled from procedures. Job ID: [id number]
[2019-02-24 12:39] LABS: Actual Bicarbonate (HCO3a) 20.1 mEq/L (22-28); Base Excess (BEa) -3.4 mEq/L (-2.0 to +3.0); CO2 Tension 31.6 mmHg (35.0-45.0); Calcium, Ionized 1.15 mmol/L (1.12-1.30); Carboxyhemoglobin (COHb) 0.6 gm% (0.0-3.0); Hemoglobin (Hb) 12.8 g/dL (14.0-18.0); O2 Tension (PaO2) 71.5 mmHg (> 80.0); Potassium - ABG Lab 3.73 mmol/L (3.70-5.30); pH, Arterial 7.42 (7.35-7.45)
[2019-02-24 12:40] LABS: Puncture Site RRA
[2019-02-24 12:41] LABS: Peep/CPAP 5.5 cmH2O
[2019-02-24] MEDS ORDERED: DISCONTINUE PREVIOUS NARCOTIC PAIN MEDICATIONS AND BENZODIAZEPINES FS SCH (15:35)
[2019-02-24] MEDS ORDERED: Fentanyl BOLUS 250 ML IVPB PRN (15:35)
[2019-02-24] MEDS ORDERED: Propofol BOLUS 1,000 MG/100 ML VIAL IV PRN (15:35)
[2019-02-24] MEDS: Propofol 1,000 MG/100 ML VIAL IV PRN ×2 (16:21→23:36)
[2019-02-24] MEDS ORDERED: Iopamidol-370 76% 500 ML 1 ML ONE (16:49)
--- NOTE | 2019-02-24 20:09 | CT ---
CT THORAX WITH CONTRAST CT ABDOMEN WITH CONTRAST CT PELVIS WITH CONTRAST: DATE: 02/24/2019 HISTORY: 63-year-old male with lung cancer. Rule out extent of disease. TECHNIQUE: IV iodinated contrast media: Administered Oral contrast media: Not administered. Single phase scans of thorax, abdomen, and pelvis. FINDINGS: There is a large confluent conglomeration of lobular soft tissue density mass is centered in the righ t mediastinum, encompassing much of the right hilum, and crossing the midline to the left side of the mediastinum. In aggregate, the dimensions are approximately 11 x 10 x 7.5 cm. The lower trachea a nd kacey have severe luminal narrowing due to invagination of the posterior aspect of the kacey by tumor. The right mainstem bronchus is also severely narrowed. The right lower lobe bronchus proxim ally appears to be occluded, but there is reconstituted aeration of its branches. There is a right pleural effusion that occupies approximately 20-25% volume of right hemithoracic cavity. No pulmonary edema.. No left pleural effusion. No pneumothorax. No cardiomegaly. Esophagogastric tube with distal tip in fundus of stomach. Small amount of passive atelectasis in right lower lobe abutting the right pleural effusion. Endotracheal tube at mid thoracic trachea, superior to this severe luminal narrowing. Left lung is clear. 3 x 3 cm fusiform infrarenal abdominal aortic aneurysm. No hydronephrosis bilaterally. No adrenal nod ule. No splenomegaly. Unremarkable pancreas. Moderately high density material in the dependent portion of gallbladder lumen perhaps representing high density sludge. Portions of the liver are degr aded by streak artifact from EKG lead adjacent to the right lobe of the liver. There are several very small focal noncystic subtle hypodense lesions scattered in right and left lobes of liver, and t hey could represent hepatic metastases. The largest of these is 0.8 cm in the right lobe. Small focal 0.8 x 0.7 cm heterogeneously sclerotic lesion in the right iliac bone adjacent to SI join t. Bone island versus metastasis. Thoracic and lumbar vertebral body heights are maintained. No free fluid or free air within the abdominal cavity or pelvic cavity. Luna catheter within urinary bl adder. Air within urinary bladder. No mural thickening of bladder. Large number of sigmoid colonic diverticula with retained barium from prior radiologic study. No colonic diverticulitis. Normal appen syeda. No retroperitoneal, dallin hepatis, or iliac chain lymphadenopathy. IMPRESSION: 1) large mediastinal conglomeration of masses is evidence for malignant primary neoplasm such as prim johana lung cancer. It is centered on the right side, but invades the left side of the mediastinum. It also involves right hilum. 2.) The tumor causes severe narrowing of the airway at the lower trachea and kacey, right mainstem b ronchus, and right lower lobe bronchus. 3) small to moderate size right pleural effusion. 4) several tiny subcentimeter ill-defined focal hypodensities scattered in left and right lobes of li jovani. These are nonspecific, but could represent multiple small hepatic metastases. 5) small subcentimeter sclerotic lesion in right iliac bone: Solitary osteoblastic metastasis versus bone island. Nuclear medicine whole body bone scan would be useful to evaluate this and to search for other lesions.
[2019-02-24] MEDS: fentaNYL Citrate/PF 2,000 MCG in Sodium Chloride 0.9% 60 ML IV SCH (20:14)
[2019-02-24] MEDS: Atorvastatin Calcium 40 MG TAB PO SCH (20:26)
--- NOTE | 2019-02-24 22:45 | OP ---
DATE OF PROCEDURE: 02/24/2019 SERVICE: Pulmonary Medicine. PROCEDURES PERFORMED: Fiberoptic bronchoscopy with: 1. Visual airway inspection. 2. Endobronchial brushing from the right mainstem bronchus. PREPROCEDURE DIAGNOSES: 1. Pulmonary mass. 2. Acute hypoxic respiratory failure. POSTPROCEDURE DIAGNOSES: 1. Pulmonary mass. 2. Acute hypoxic respiratory failure. MEDICATIONS USED: None. The patient was still sedated from his intubation. PREANESTHESIA ASSESSMENT: H and P had been performed. The patient's medications and allergies were reviewed. Informed consent was obtained after discussing the risks, benefits, and rationale for performing the procedure as well as alternative options. DESCRIPTION OF PROCEDURE: A time-out was performed identifying the correct procedure and patient with name and date of . A 10 mL of 2% lidocaine were instilled into the endotracheal tube. A diagnostic fiberoptic bronchoscope was introduced through the 8.0 endotracheal tube. The bronchoscope was advanced into the trachea, where a tracheobronchial tree inspection was carried out. There were no lesions of the trachea. Into the distal trachea, there was clearly endobronchial disease present. There was 40%stenosis of the left mainstem bronchus. Most of this appeared to be extrinsic in nature. The scope would easily pass distal to this lesion. Once I got distal to it, there was clear identification of the left upper lobe, lingula, and left lower lobe bronchus. No endobronchial disease was present distal to that. The right mainstem bronchus was 95% occluded. The scope could not pass distal to this and I could not identify any anatomy distal to it. That being said, a brush easily passed through this lesion. A brushing was obtained under direct observation. Hemostasis was verified and bronchoscope was subsequently removed from the patient. FINDINGS: 1. 40% stenosis of the left mainstem bronchus was mostly extrinsic. 95% to 99% stenosis of the right mainstem bronchus with endobronchial disease. Scope could not pass distal, but the brush could. 2. Secretions were minimal, but thick and white. SPECIMENS OBTAINED: Brushing for cytology. COMPLICATIONS: None. ESTIMATED BLOOD LOSS: Less than 2 mL. FLUOROSCOPY TIME: None. DISPOSITION: The patient will recover on mechanical ventilation in the ICU. Job ID: [id number] [facility]
--- NOTE | 2019-02-24 22:51 | OP ---
DATE OF PROCEDURE: 02/24/2019 SERVICE: Pulmonary Medicine. PROCEDURE PERFORMED: Emergent endotracheal intubation. CONSENT: Procedure was performed emergently secondary to clinical deterioration and respiratory failure. MEDICATIONS USED: Propofol 150 mcg IV push. PREPROCEDURE DIAGNOSIS: Acute hypoxic respiratory failure. POSTPROCEDURE DIAGNOSIS: Acute hypoxic respiratory failure. DESCRIPTION OF PROCEDURE: Vital sign monitoring was accomplished by noninvasive hemodynamic monitoring, pulse oximetry, and telemetry. In the supine position, the patient was preoxygenated with [id number] ventilation and maintained with saturations of 100%. Following induction anesthesia, a #4 GlideScope was inserted through the mouth offering clear identification of the posterior oropharynx and laryngeal structures with a grade 1 view. An 8.0 endotracheal tube was visualized passing through the vocal cords. Placement was confirmed by condensation in the endotracheal tube and bi-axillary chest auscultation. The endotracheal tube was secured at 22 cm, measured at the teeth. The patient was placed on mechanical ventilation with good return of volumes. Postprocedure bronchoscopy demonstrated good location for the endotracheal tube. ESTIMATED BLOOD LOSS: None. COMPLICATIONS: None. Job ID: [id number]
[2019-02-25] MEDS: Propofol 1,000 MG/100 ML VIAL IV PRN ×3 (07:29→23:09)
[2019-02-25] MEDS: Enoxaparin Sodium 40 MG/0.4 ML SYRINGE SC SCH (08:34)
[2019-02-25] MEDS: methylPREDNISolone Sod Succ 40 MG VIAL IVP SCH ×2 (08:38→20:51)
[2019-02-25] MEDS: Lisinopril 5 MG TAB PO SCH (08:40)
[2019-02-25] MEDS: Famotidine 20 MG TAB PO SCH ×2 (08:40→20:51)
--- NOTE | 2019-02-25 14:20 | PDOC.MOPN ---
Interval History: intubated/sedated. appears comfortable. - Vital Signs Vital Signs: Vital Signs (12 hours) Temp Pulse Resp BP Pulse Ox 02/25/19 13:00 98.5 F 02/25/19 12:00 8 L 02/25/19 10:15 106 H 108/80 02/25/19 10:13 117 H 8 L 97 02/25/19 10:00 9 L 02/25/19 08:40 116 H 116/79 02/25/19 08:00 99.2 F 11 L 98 02/25/19 06:56 116 H 116/79 02/25/19 06:53 115 H 10 L 96 02/25/19 06:00 12 02/25/19 04:00 99.3 F 12 02/25/19 03:17 112 H Weight Admit Weight 145 lb 15.136 oz Weight 145 lb 4.554 oz Most Recent Monitor Data Heart Rate from ECG 105 NIBP 119/80 NIBP BP-Mean 92 Respiration from ECG 9 SpO2 98 - Physical Exam General: No acute distress HEENT: Atraumatic Lungs: Clear to auscultation Cardiovascular: Regular rate Abdomen: Soft Extremities: No edema Skin: No rashes Neurological: Other Psych/Mental Status: Other - Labs Result Diagrams: 02/24/19 03:46 02/24/19 03:46 Lab results: Laboratory Results - last 24 hr 02/22/19 14:05: Fluid Diff Path Review Status: lab reviewed by me A/P - Problem (1) Acute respiratory failure with hypoxia Current Visit: Yes Code(s): J96.01 - ACUTE RESPIRATORY FAILURE WITH HYPOXIA Status: Acute (2) Lung mass Current Visit: Yes Code(s): R91.8 - OTHER NONSPECIFIC ABNORMAL FINDING OF LUNG FIELD Status: Acute - Plan Plan: Brochoscopy completed, path pending. 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 Will follow
--- NOTE | 2019-02-25 15:38 | PDOC.HOSPP ---
- Subjective Encounter Date: 02/25/19 Encounter Time: 15:37 Subjective: Intubated and sedated - Objective Vital Signs & Weight: Vital Signs (12 hours) Temp Pulse Resp BP Pulse Ox 02/25/19 14:22 102 H 114/85 02/25/19 14:19 102 H 8 L 99 02/25/19 14:00 8 L 02/25/19 13:00 98.5 F 02/25/19 12:00 8 L 02/25/19 10:15 106 H 108/80 02/25/19 10:13 117 H 8 L 97 02/25/19 10:00 9 L 02/25/19 08:40 116 H 116/79 02/25/19 08:00 99.2 F 11 L 98 02/25/19 06:56 116 H 116/79 02/25/19 06:53 115 H 10 L 96 02/25/19 06:00 12 02/25/19 04:00 99.3 F 12 Weight Admit Weight 145 lb 15.136 oz Weight 145 lb 4.554 oz Most Recent Monitor Data Heart Rate from ECG 107 NIBP 115/82 NIBP BP-Mean 88 Respiration from ECG 8 SpO2 96 I&O: 02/24/19 02/25/19 02/26/19 06:59 06:59 06:59 Intake Total 1330 3054 240 Output Total 700 1630 400 Balance 630 1424 -160 Result Diagrams: 02/24/19 03:46 02/24/19 03:46 Hospitalist ROS - Medication Medications: Active Medications Generic Name Dose Route Start Last Admin Trade Name Freq PRN Reason Stop Dose Admin Albuterol/Ipratropium 3 ml 02/21/19 22:30 02/25/19 14:19 Duoneb NEB 3 ml [id number] CHELSEA Administration Atorvastatin Calcium 80 mg 02/22/19 21:00 02/24/19 20:26 Lipitor PO 80 mg HS CHELSEA Administration Enoxaparin Sodium 40 mg 02/22/19 09:00 02/25/19 08:34 Lovenox SC 40 mg 0900 CHELSEA Administration Famotidine 20 mg 02/21/19 21:00 02/25/19 08:40 Pepcid PO 20 mg BID CHELSEA Administration Levofloxacin 750 mg/ Device 150 mls @ 100 mls/hr 02/22/19 09:00 02/25/19 08: 43 IVPB 150 mls Q24HR CHELSEA Administration Sodium Chloride 1,000 mls @ 75 mls/hr 02/22/19 14:30 02/24/19 23:36 1/2 Normal Saline IV 1,000 mls .[id number] CHELSEA Administration Fentanyl Citrate 2,000 mcg/ 100 mls @ 0 mls/hr 02/24/19 15:35 02/24/19 20:14 Sodium Chloride IV 03/26/19 15:35 100 mls INF CHELSEA Administration Protocol Per Protocol Lisinopril 5 mg 02/23/19 09:00 02/25/19 08:40 Zestril PO 5 mg DAILY CHELSEA Administration Lorazepam 2 mg 02/24/19 15:35 02/24/19 20:00 Ativan SLOW IVP 03/26/19 15:35 2 mg Q1H PRN Administration Breakthrough agitation Methylprednisolone Sodium Succinate 40 mg 02/23/19 21:00 02/25/19 08:38 Solu-Medrol IVP 40 mg Q12HR CHELSEA Administration Ondansetron HCl 4 mg 02/21/19 20:58 02/23/19 15:11 Zofran IVP 4 mg Q6H PRN Administration Nausea/Vomiting Promethazine HCl 25 mg 02/23/19 15:25 02/23/19 22:09 Phenergan IM/IV 25 mg Q6H PRN Administration Nausea/Vomiting Propofol 1,000 mg 02/24/19 15:35 02/25/19 14:50 Diprivan IV 03/26/19 15:35 1,000 mg INF PRN Administration TO ACHIEVE GOAL RASS Protocol Sodium Chloride 10 ml 02/22/19 09:00 02/25/19 08:41 Flush - Normal Saline IVF 10 ml Q12HR CHELSEA Administration - Exam General - other findings: intubated and sedated ENT - other findings: Intubated Heart: RRR, no murmur, no gallops Respiratory - other findings: coarse breath sounds Gastrointestinal: soft, non-tender, non-distended Extremities: no cyanosis, 1+ LE edema Neurological - other findings: sedated Hosp A/P (1) Acute respiratory failure with hypoxia Code(s): J96.01 - ACUTE RESPIRATORY FAILURE WITH HYPOXIA Status: Acute (2) Lung mass Code(s): R91.8 - OTHER NONSPECIFIC ABNORMAL FINDING OF LUNG FIELD Status: Acute (3) CHIQUITA (acute kidney injury) Code(s): N17.9 - ACUTE KIDNEY FAILURE, UNSPECIFIED Status: Acute (4) Tobacco abuse Code(s): Z72.0 - TOBACCO USE Status: Chronic - Plan ocampo catheter, continue antibiotics, respiratory therapy, DVT proph w/lovenox, DVT proph w/SCDs F/U pleural fluid studies. f/u with pulmonary, oncology.. Continue current therapy. 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
--- NOTE | 2019-02-25 16:12 | PRG ---
DATE OF SERVICE: 02/25/2019 SERVICE: Pulmonary Medicine. INTERVAL HISTORY: The patient is doing fine on mechanical ventilator. He is not currently awake. He is under the influence of some sedation. He is requiring the sedation in order to maintain some degree of comfort. He likes to breathe slow , and have large tidal volumes. Anything outside of this, requires heavy sedation and poor ventilation. There were no significant overnight events. We are simply awaiting pathology. PHYSICAL EXAMINATION: VITAL SIGNS: Afebrile, pulse 107, blood pressure 115/82, respirations 8, and saturation 96% currently on 31% FiO2 and PEEP of 8. GENERAL: The patient is intubated and sedated. HEENT: Normocephalic and atraumatic. Sclerae white. Conjunctivae pink. Oral mucosa is moist without lesions. LUNGS: Decent air entry. There is a prolonged inspiratory and expiratory phase on the right. There is slightly prolonged expiratory phase on the left. Wheezing is predominantly on the right side. HEART: Normal rate and regular. ABDOMEN: Soft, nontender, and nondistended. Bowel sounds are positive. MUSCULOSKELETAL: No cyanosis or clubbing. There is no pitting in the bilateral lower extremities. NEUROLOGIC: Grossly nonfocal. LABORATORY DATA: WBC 11.1, hemoglobin 12.3, and platelets 188,000. ASSESSMENT: 1. Acute hypoxic respiratory failure. 2. Chronic obstructive pulmonary disease with acute exacerbation. 3. Pleural effusion, malignant, final ID pending. 4. Pulmonary mass with endobronchial lesion causing 95% to 99% blockage of the right mainstem bronchus and extrinsic compression of the left mainstem bronchus at about 50%. DISCUSSION AND PLAN: Once we identify the type of cancer, the patient will likely need to undergo emergent therapy. This lesion would be amenable to some brachytherapy. That being said, if this lesion grows before contracts down, the patient would be best served by going to a location where he can get interventional pulmonology to place a stent across this lesion before initiating therapy. There is a critical stenosis of the right mainstem bronchus, and a 50% stenosis of the left mainstem bronchus. Initiating therapy without securing these lesions should be done extraordinarily cautiously. We are awaiting the final ID of this cancer, so that we can identify the best course of action moving forward. Pulmonary/Critical Care will continue to follow along. Dr. Torres has established relationship with Mr. Beckford and will be taking custody of him in the morning. CRITICAL CARE TIME: 30 minutes. Job ID: [id number] MTDD
[2019-02-25] MEDS: Sodium Chloride 0.45% 1,000 ML IV SCH (17:09)
[2019-02-25] MEDS: Atorvastatin Calcium 40 MG TAB PO SCH (20:51)
[2019-02-26] MEDS ORDERED: Aspirin 325 MG TAB PER TUBE SCH (06:15)
--- NOTE | 2019-02-26 06:16 | PDOC.EVN ---
Event Note - Event Note Event Note: Nsg called regarding concern for new L-sided weakness and L lateral eye gaze. Currently on mech ventilation with R-sided bronchial mass. VSS, remains on mech ventilation with Diprivan for sedation, SIMV with FIO2 @ 45 %, Rate 10, PSP 23 PEEP 8 Unresponsive with minimal corneal reflex, sedate on mech vent, diminished BS R base, CV S1, S2, ABD soft, BS +, no edema peripherally Withdraws RUE to painful stimulus Tele - Sinus in 's CT brain - neg for acute process MRI brain - pending A/P: ? TIA/CVA - check MRI brain with contrast, start ASA 325mg daily, consult Neurology service Acute hypoxic resp failure - continue SIMV, sedation with Diprivan Total critical care time: 33min
[2019-02-26] MEDS: Propofol 1,000 MG/100 ML VIAL IV PRN ×2 (06:18→15:04)
[2019-02-26] MEDS: fentaNYL Citrate/PF 2,000 MCG in Sodium Chloride 0.9% 60 ML IV SCH (07:07)
[2019-02-26] MEDS: Sodium Chloride 0.9% 1,000 ML IV SCH ×2 (07:12→10:50)
--- NOTE | 2019-02-26 08:05 | CT ---
PRELIMINARY REPORT/[facility]/EMERGENCY AFTER HOURS PROCEDURE: PROCEDURE INFORMATION: Exam: CT Head Without Contrast Exam date and time: 02/26/2019 5:27 AM Clinical history: 63 years old, male; Altered mental status/memory loss TECHNIQUE: Imaging protocol: Computed tomography of the head without contrast. COMPARISON: No relevant prior studies available. FINDINGS: Tubes, catheters and devices: Nasogastric tube is noted Brain: There are multiple small hypodensities in the bilateral basal ganglia/internal capsules, consi stent with remote lacunar infarctions. There is no evidence of intracranial hemorrhage. Ventricles: Normal. No ventriculomegaly. Bones/joints: Unremarkable. No acute fracture. Sinuses: Visualized sinuses are unremarkable. No fluid levels. Mastoid air cells: Visualized mastoid air cells are well aerated. Soft tissues: Unremarkable. IMPRESSION: No acute intracranial hemorrhage. Thank you for allowing us to participate in the care of your patient. Dictated and Authenticated by: Merrill Schumacher MD 02/26/2019 5:37 AM Central Time ([place] & [place]) FINAL REPORT EMERGENT AFTER HOURS CT OF THE BRAIN WITHOUT CONTRAST: COMPARISON: 07/30/2018. FINDINGS/IMPRESSION: I agree with the findings and impression given in the preliminary report per [facility] physician. 1. No evidence of acute intracranial abnormality. 2. There has been interval development of multiple hypodensities in the subcortical and periventricu lar white matter. This could be secondary to small-vessel ischemic disease and small lacunar infarct ions that have occurred since the prior CT. POS: GAYE
--- NOTE | 2019-02-26 08:35 | PRG ---
DATE OF SERVICE: 02/26/2019 35 minutes critical care time. SUBJECTIVE: The patient remains intubated on mechanical ventilation. He apparently moves his right side very well, but is not moving his left side. Previous notes were reviewed. OBJECTIVE: VITAL SIGNS: On exam, temperature 99.1, pulse 96, blood pressure 109/72. He is requiring no vasopressors. He is sedated with propofol and fentanyl. Intake for 24 hours 2163, output 920. HEENT: Eyes slightly deviated to the left. Oropharynx, endotracheal tube in place. NECK: No adenopathy or JVD. LUNGS: Expiratory wheezing bilaterally. CARDIAC: S1, S2. Regular. ABDOMEN: Soft, nontender. EXTREMITIES: No edema. LABORATORY DATA: I did not see any new labs that were done today. I did review his CT scan. ASSESSMENT: 1. Acute respiratory failure requiring mechanical ventilation. 2. High-grade extrinsic compression of left mainstem bronchus with also endobronchial disease in right mainstem bronchus. This is suggestive of lung cancer. 3. Possible metastasis to the head versus stroke. PLAN: 1. MRI is planned for today. 2. Await results from the biopsies that were taken from the lung and also from the pleural fluid. Depending on that result, we will decide how to approach the family. I think the prognosis is poor and I doubt he is a candidate for the interventions Dr. Cunningham was talking about in his note yesterday. Job ID: [id number]
[2019-02-26] MEDS: Lorazepam 2 MG/ML VIAL SLOW IVP PRN (09:08)
[2019-02-26] MEDS ORDERED: Vecuronium 10 MG VIAL IVP SCH (10:00)
--- NOTE | 2019-02-26 10:02 | MRI ---
Brain MRI with and without contrast: 02/26/2019 COMPARISON: 07/31/2018 TECHNIQUE: Multiplanar multisequence MR imaging of the brain is obtained with and without contrast HISTORY: Possible stroke with left-sided hemiparesis, patient unable to move left side FINDINGS: The diffusion weighted imaging demonstrates no evidence for acute infarction. The axial gradient echo imaging demonstrates no evidence for intracranial hemorrhage. Paranasal sinuses and mastoid air cells demonstrate no significant abnormal signal intensity. Arteria l flow voids at the axial level of the skull base appear grossly unremarkable on the T2-weighted imaging. There are multiple foci of increased T2 and FLAIR signal within the periventricular and deep white ma tter as well as within the putamen on the right and bilateral thalami suggesting areas of prior lacunar infarction, some of which are new when compared to 07/31/2018. The post contrast imaging demonstrates no abnormal enhancement within the brain parenchyma. IMPRESSION: Small vessel disease/multiple prior lacunar infarctions. On this examination there is no evidence for acute infarction. No midline shift, mass effect, abnormal enhancement, or evidence of intracranial hemorrhage.
[2019-02-26] MEDS: Famotidine 20 MG TAB PO SCH ×2 (10:57→20:57)
[2019-02-26] MEDS: Enoxaparin Sodium 40 MG/0.4 ML SYRINGE SC SCH (10:57)
[2019-02-26] MEDS: Lisinopril 5 MG TAB PO SCH (10:58)
[2019-02-26] MEDS: methylPREDNISolone Sod Succ 40 MG VIAL IVP SCH ×2 (10:58→20:58)
--- NOTE | 2019-02-26 12:44 | PDOC.PALCO ---
Palliative Care Consult - Consult Details Requesting Physician: Dr Torres Reason for Consult: goals of care, advance directives assistance Family Members Present: Sister Evon - Pertinent HPI 63 year old male who has been living with his sister. Initial presentation to [facility] and was transported to [facility] for respiratory distress and hypoxia. Patient was on BiPAP and CT and further evaluation identified RLL pneumonia as well as large infiltrating R Hilar and mediastinal mass with tracheal and tight bronchus involvement, concerning for malignancy. Suspected metastatic disease to upper abdomen. Admitted for medical management, subsequently intubated, and taken 02/[address] secondary to event and suspected CVA. Also awaiting path report from lung mass. - Pertinent PMH Possible VT, COPD, PTSD, Anxiety, - Social History Smoking Status: Former smoker (Stopped recently) Smoking: cigar (Heavy cigar use as per sister) Alcohol Use: occasional Drug Use History: none Living Situation: other (Lives with sister) - Medications MAR Reviewed: Yes - Allergies Allergies/Adverse Reactions: Allergies Allergy/AdvReac Type Severity Reaction Status Date / Time No Known Allergies Allergy Verified 02/21/19 23:39 - Subjective Intubated, non responsive at time of assessment - Objective Vital Signs: Vital Signs - Most Recent Temp Pulse Resp BP Pulse Ox 98.6 F 101 H 12 108/82 96 02/26/19 12:00 02/26/19 10:11 02/26/19 12:00 02/25/19 22:08 02/25/19 19:10 Palliative Performance Scale: 20 - Advance Directives Medical Power of Certified Ski Patroller: Sister Evon paperwork on chart [phone] - Physical Exam Deviation from normal: Non responsive mechanical ventilation HEENT: moist MMs, sclera anicteric Respiratory: wheezing present Deviation from normal: Mechanical ventilation Cardiovascular: RRR Gastrointestinal: soft, non-tender Musculoskeletal: pulses present, no clubbing, no cyanosis Deviation from normal: non responsive at time of assessment Skin: normal turgor, cap refill <2 seconds - Problem List (1) Palliative care encounter Code(s): Z51.5 - ENCOUNTER FOR PALLIATIVE CARE Current Visit: Yes Status: Acute (2) Acute respiratory failure with hypoxia Code(s): J96.01 - ACUTE RESPIRATORY FAILURE WITH HYPOXIA Current Visit: Yes Status: Acute (3) Lung mass Code(s): R91.8 - OTHER NONSPECIFIC ABNORMAL FINDING OF LUNG FIELD Current Visit: Yes Status: Acute (4) Acute CVA (cerebrovascular accident) Code(s): I63.9 - CEREBRAL INFARCTION, UNSPECIFIED Current Visit: No Status: Acute (5) Tobacco abuse Code(s): Z72.0 - TOBACCO USE Current Visit: No Status: Chronic - Plan/Recommendations Plan: Met with patient sister Evon at length. She is MPOA. Patient has two older brothers and one that is younger. Three children and a best friend Merrill. Life review with sister/therapeutic listening and supportive care. *Patient made a DNAR *Family will wait for results of path report (however they do not believe that chemo will be pursued) and await CT results to make decisions, however patient had expressed if he was with terminal conditions that he would not want to pursue treatment. *Will continue to support family and patient and revisit goals of care as information is given to the family Evon Olivo [phone] (patient sister) Will Beckford [phone] (Oldest son of patient) [90] minutes spent on this encounter with >50% of the time in counseling and coordination of care. Thank you for this very appropriate consult.
--- NOTE | 2019-02-26 15:26 | PDOC.HOSPP ---
- Subjective Encounter Date: 02/26/19 Encounter Time: 15:26 Subjective: intubated and sedated - Objective Vital Signs & Weight: Vital Signs (12 hours) Temp Pulse Resp BP Pulse Ox 02/26/19 14:23 99 121/81 02/26/19 14:22 100 14 100 02/26/19 14:00 12 02/26/19 13:29 97 02/26/19 12:00 98.6 F 12 02/26/19 10:11 101 H 02/26/19 10:00 13 02/26/19 08:00 14 02/26/19 07:52 100 02/26/19 07:00 99.1 F 02/26/19 06:00 15 02/26/19 04:00 11 L Weight Admit Weight 145 lb 15.136 oz Weight 145 lb 4.554 oz Most Recent Monitor Data Heart Rate from ECG 99 NIBP 121/81 NIBP BP-Mean 92 Respiration from ECG 11 SpO2 98 I&O: 02/25/19 02/26/19 02/27/19 06:59 06:59 06:59 Intake Total 3054 2163 1051 Output Total 1630 920 600 Balance 1424 1243 451 Result Diagrams: 02/24/19 03:46 02/24/19 03:46 Hospitalist ROS - Medication Medications: Active Medications Generic Name Dose Route Start Last Admin Trade Name Freq PRN Reason Stop Dose Admin Albuterol/Ipratropium 3 ml 02/21/19 22:30 02/26/19 14:22 Duoneb NEB 3 ml [id number] CHELSEA Administration Atorvastatin Calcium 80 mg 02/22/19 21:00 02/25/19 20:51 Lipitor PO 80 mg HS CHELSEA Administration Enoxaparin Sodium 40 mg 02/22/19 09:00 02/26/19 10:57 Lovenox SC 40 mg 0900 CHELSEA Administration Famotidine 20 mg 02/21/19 21:00 02/26/19 10:57 Pepcid PO 20 mg BID CHELSEA Administration Levofloxacin 750 mg/ Device 150 mls @ 100 mls/hr 02/22/19 09:00 02/26/19 11: 01 IVPB 150 mls Q24HR CHELSEA Administration Sodium Chloride 1,000 mls @ 0 mls/hr 02/22/19 14:30 02/25/19 17:09 1/2 Normal Saline IV 1,000 mls .Q0M CHELSEA Administration KVO Fentanyl Citrate 2,000 mcg/ 100 mls @ 0 mls/hr 02/24/19 15:35 02/26/19 07:07 Sodium Chloride IV 03/26/19 15:35 100 mls INF CHELSEA Administration Protocol Per Protocol Lisinopril 5 mg 02/23/19 09:00 02/26/19 10:58 Zestril PO 5 mg DAILY CHELSEA Administration Lorazepam 2 mg 02/24/19 15:35 02/26/19 09:08 Ativan SLOW IVP 03/26/19 15:35 2 mg Q1H PRN Administration Breakthrough agitation Methylprednisolone Sodium Succinate 40 mg 02/23/19 21:00 02/26/19 10:58 Solu-Medrol IVP 40 mg Q12HR CHELSEA Administration Ondansetron HCl 4 mg 02/21/19 20:58 02/23/19 15:11 Zofran IVP 4 mg Q6H PRN Administration Nausea/Vomiting Promethazine HCl 25 mg 02/23/19 15:25 02/23/19 22:09 Phenergan IM/IV 25 mg Q6H PRN Administration Nausea/Vomiting Propofol 1,000 mg 02/24/19 15:35 02/26/19 15:04 Diprivan IV 03/26/19 15:35 1,000 mg INF PRN Administration TO ACHIEVE GOAL RASS Protocol Sodium Chloride 10 ml 02/22/19 09:00 02/26/19 10:58 Flush - Normal Saline IVF 10 ml Q12HR CHELSEA Administration - Exam General - other findings: intubated and sedated ENT: normocephalic atraumatic, no oropharyngeal lesions ENT - other findings: +intubation Heart: RRR, no murmur, no gallops Respiratory - other findings: intubation Gastrointestinal: soft, non-tender Neurological - other findings: sedated Hosp A/P (1) Acute respiratory failure with hypoxia Code(s): J96.01 - ACUTE RESPIRATORY FAILURE WITH HYPOXIA Status: Acute (2) Lung mass Code(s): R91.8 - OTHER NONSPECIFIC ABNORMAL FINDING OF LUNG FIELD Status: Acute (3) CHIQUITA (acute kidney injury) Code(s): N17.9 - ACUTE KIDNEY FAILURE, UNSPECIFIED Status: Acute (4) Tobacco abuse Code(s): Z72.0 - TOBACCO USE Status: Chronic - Plan Acute respiratory failure, intubated and awaiting pathology report from lung mass (Cytology: Small Cell Ca?) Palliative care on board DNR now and possible compassionate extubation tomorrow. Cytology: Small cell Cancer f/u with pulmonary, oncology.. Continue current therapy.
--- NOTE | 2019-02-26 15:51 | PDOC.MOPN ---
Interval History: Intubated/sedated. - Vital Signs Vital Signs: Vital Signs (12 hours) Temp Pulse Resp BP Pulse Ox 02/26/19 15:47 101 H 123/79 02/26/19 14:23 99 121/81 02/26/19 14:22 100 14 100 02/26/19 14:00 12 02/26/19 13:29 97 02/26/19 12:00 98.6 F 12 02/26/19 10:11 101 H 02/26/19 10:00 13 02/26/19 08:00 14 02/26/19 07:52 100 02/26/19 07:00 99.1 F 02/26/19 06:00 15 02/26/19 04:00 11 L Weight Admit Weight 145 lb 15.136 oz Weight 145 lb 4.554 oz Most Recent Monitor Data Heart Rate from ECG 99 NIBP 121/81 NIBP BP-Mean 92 Respiration from ECG 11 SpO2 98 - Physical Exam General: No acute distress Lungs: Clear to auscultation Cardiovascular: Regular rate Abdomen: Normal bowel sounds - Labs Result Diagrams: 02/24/19 03:46 02/24/19 03:46 Status: lab reviewed by wa - Pathology Pathology: small cell neuroendocrine A/P - Problem (1) Acute respiratory failure with hypoxia Current Visit: Yes Code(s): J96.01 - ACUTE RESPIRATORY FAILURE WITH HYPOXIA Status: Acute (2) Lung mass Current Visit: Yes Code(s): R91.8 - OTHER NONSPECIFIC ABNORMAL FINDING OF LUNG FIELD Status: Acute - Plan Plan: 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 Dr. Manzano will discuss with [facility] treatment options.
--- NOTE | 2019-02-26 17:25 | CON ---
DATE OF CONSULTATION: 02/26/2019 CONSULTING SERVICE: Hospitalist Service. HISTORY OF PRESENT ILLNESS: Mr. Beckford has been admitted with respiratory failure. He has evidence of a bronchial lesions, suspicious for cancer. He has been intubated. He had a prior stroke in July of this year. His sister reports he did make some recovery in regard to his gait, but never recovered much function in the left arm. He was noted on exam to have left arm weakness and had a repeat MRI of the brain. This showed some cavitary lesions, that were chronic, but no acute changes are present compared to his prior study. He remains intubated and on sedation. PHYSICAL EXAMINATION: On exam, he could get withdrawal responses in 3 extremities except for the left upper extremity. His face appears to be symmetric. His doll's head maneuver shows conjugate eye movements. Pupils are equal and reactive. Plantar response was upgoing on the left and downgoing on the right. No abnormal movements were seen. IMAGING STUDIES: EKG shows sinus tachycardia. SUMMARY: A 63-year-old man who likely has a lung cancer. He has a history of a prior small vessel stroke. He should continue on aspirin and a statin. Neurologically, there does not appear to be any significant change. Job ID: [id number]
[2019-02-26] MEDS: Atorvastatin Calcium 40 MG TAB PO SCH (20:57)
[2019-02-27] MEDS: Propofol 1,000 MG/100 ML VIAL IV PRN ×2 (01:07→15:44)
[2019-02-27] MEDS: fentaNYL Citrate/PF 2,000 MCG in Sodium Chloride 0.9% 60 ML IV SCH (04:43)
[2019-02-27 04:47] LABS: #Lymphocytes 0.8 thou/uL (1.20-3.40); #Monocytes 0.3 thou/uL (0.11-0.59); #Neutrophils 6.1 thou/uL (1.40-6.50); %Basophils 0.2 % (0.0-1.0); %Eosinophils 0.3 % (0.0-10.0); %Lymphocytes 10.6 % (21.0-51.0); %Monocytes 4.6 % (0.0-10.0); %Neutrophils 84.2 % (42.0-75.0); Hemoglobin 11.1 g/dL (14.0-18.0); Mean Corpuscular HGB CONC 34.1 g/dL (32.0-36.0); Mean Corpuscular Hemoglobin 32.2 pg (27.0-31.0); Mean Corpuscular Volume 94.4 fL (78.0-98.0); Mean Platelet Volume 7.6 fL (7.4-10.4); Platelet Count 140 thou/uL (130-400); RBC Distribution Width 14.2 % (11.5-14.5); Red Blood Cell (RBC) Count 3.46 mill/uL (4.70-6.10); White Blood Cell (WBC) Count 7.3 thou/uL (4.8-10.8)
[2019-02-27 05:02] LABS: Anion Gap 10 mmol/L (10-20); BUN (Urea Nitrogen) 55 mg/dL (8.4-25.7); Calc. Creatinine Clearance 43 mL/min (70-130); Calcium 7.9 mg/dL (7.8-10.44); Carbon Dioxide 26 mmol/L (23-31); Chloride 109 mmol/L (98-107); Estimated GFR-MDRD 43; Glucose 188 mg/dL (80-115); Potassium 5.4 mmol/L (3.5-5.1); Sodium 140 mmol/L (136-145)
[2019-02-27] MEDS: Sodium Chloride 0.45% 1,000 ML IV SCH (06:42)
--- NOTE | 2019-02-27 08:13 | PDOC.MOPN ---
Interval History: Intubated and sedated. Blinks to touch but does not make eye contact. I spoke to his sister Evon regarding chemotherapy over the phone. - Vital Signs Vital Signs: Vital Signs (12 hours) Temp Pulse Resp BP Pulse Ox 02/27/19 07:17 12 100 02/27/19 07:07 87 12 118/70 99 02/27/19 07:00 99.1 F 87 12 118/70 99 02/27/19 06:00 12 02/27/19 04:00 99.0 F 12 02/27/19 02:05 89 12 100 02/27/19 02:00 12 02/27/19 00:00 99.2 F 12 02/26/19 23:00 14 02/26/19 22:23 95 14 100 02/26/19 22:00 14 Weight Admit Weight 145 lb 15.136 oz Weight 145 lb 4.554 oz Most Recent Monitor Data Heart Rate from ECG 88 NIBP 118/70 NIBP BP-Mean 81 Respiration from ECG 12 SpO2 100 - Physical Exam General: Other (sedated, responsive to touch only) HEENT: Other (ETT in place) Cardiovascular: Regular rate Extremities: No edema Neurological: Other (blinks to touch only) Psych/Mental Status: Other (not alert) - Labs Result Diagrams: 02/27/19 04:30 02/27/19 04:30 Lab results: Laboratory Results - last 24 hr 02/27/19 04:30: WBC 7.3, RBC 3.46 L, Hgb 11.1 L, Hct 32.7 L, MCV 94.4, MCH 32.2 H, MCHC 34.1, RDW 14.2, Plt Count 140, MPV 7.6, Neutrophils % 84.2 H, Lymphocytes % 10.6 L, Monocytes % 4.6, Eosinophils % 0.3, Basophils % 0.2, Neutrophils # 6.1, Lymphocytes # 0.8 L, Monocytes # 0.3, Eosinophils # 0.0, Basophils # 0.0 02/27/19 04:30: Sodium 140, Potassium 5.4 H, Chloride 109 H, Carbon Dioxide 26, Anion Gap 10, BUN 55 H, Creatinine 1.63 H, Estimated GFR (MDRD) 43, Glucose 188 H, Calcium 7.9 A/P - Problem (1) Small cell carcinoma of right lung Current Visit: Yes Code(s): C34.91 - MALIGNANT NEOPLASM OF UNSP PART OF RIGHT BRONCHUS OR LUNG Status: Acute - Plan Plan: Plan Carboplatin + VP16 + Neulasta, d/w sister Evon on the phone monitor respiratory status, hopeful to come off ventilator if good response to chemotherapy
[2019-02-27] MEDS: Enoxaparin Sodium 40 MG/0.4 ML SYRINGE SC SCH (08:23)
[2019-02-27] MEDS: methylPREDNISolone Sod Succ 40 MG VIAL IVP SCH ×2 (08:23→20:27)
[2019-02-27] MEDS: Famotidine 20 MG TAB PO SCH ×2 (08:23→20:27)
--- NOTE | 2019-02-27 08:35 | PRG ---
DATE OF SERVICE: 02/27/2019 SUBJECTIVE: This patient remains intubated, sedated and on mechanical ventilation. There have been no acute changes overnight. OBJECTIVE: VITAL SIGNS: Temperature 99.1, pulse 88, blood pressure 118/70, O2 saturation 100%. GENERAL: He is currently on propofol and fentanyl. Intake last 24 hours 2953, output 1845. HEENT: Unremarkable. NECK: No adenopathy or JVD. No bruits. LUNGS: Clear anteriorly bilaterally. CARDIAC: S1, S2. Regular. ABDOMEN: Soft. EXTREMITIES: No edema. LABORATORY DATA: White blood cell count 7.3, hematocrit 32.7, and platelet count 140. Sodium 140, potassium 5.4, chloride 109, CO2 of 26, BUN 55, creatinine 1.6, glucose 188. Chest x-ray shows no change. ASSESSMENT: 1. Extensive stage small cell lung cancer. 2. Malignant pleural effusion. 3. Acute respiratory failure with high-grade intrinsic obstruction in the right mainstem bronchus and extrinsic compression of the left mainstem bronchus. 4. Developing hyperkalemia. PLAN: The patient's family is going to make a decision about chemotherapy. I do not think there is any way I could extubate him safely without the tumor first being treated. We will await their disposition. Job ID: [id number]
[2019-02-27] MEDS: Lorazepam 2 MG/ML VIAL SLOW IVP PRN ×2 (09:02→17:07)
--- NOTE | 2019-02-27 09:44 | RAD ---
CHEST 1 VIEW: COMPARISON: 02/24/2019. HISTORY: Dyspnea. Pneumonia. FINDINGS: Interval placement of endotracheal and nasogastric tubes. Persistent opacification of the right para tracheal region. Stable hyperinflation of the lungs. Small right-sided effusion is suspected. No p neumothorax. IMPRESSION: 1. Interval placement of endotracheal and nasogastric tubes. 2. Persistent opacification in the right lung/paratracheal region. Right-sided pleural effusion. POS: [facility] [place]
[2019-02-27] MEDS ORDERED: CARBOPLATIN IVPB SCH (11:30)
[2019-02-27] MEDS ORDERED: SODIUM CHLORIDE 0.9% IVPB SCH (11:30)
[2019-02-27] MEDS ORDERED: Palonosetron HCl 0.25 MG in Sodium Chloride 0.9% 50 ML IVPB SCH (11:30)
[2019-02-27] MEDS: SODIUM CHLORIDE 0.9% IVPB SCH (15:19)
[2019-02-27] MEDS: ETOPOSIDE IVPB SCH (15:19)
--- NOTE | 2019-02-27 18:43 | PDOC.HOSPP ---
- Subjective Encounter Date: 02/27/19 Encounter Time: 10:20 Subjective: Pt seen for followup re: acute hypoxic respiratory failure. Intubated, unable to complete ROS. - Objective Vital Signs & Weight: Vital Signs (12 hours) Temp Pulse Resp BP Pulse Ox 02/27/19 17:24 99.5 F 02/27/19 17:00 99.5 F 02/27/19 16:00 99.5 F 02/27/19 15:00 99.5 F 02/27/19 14:05 97 103/65 02/27/19 14:03 96 15 97 02/27/19 14:00 97 103/65 02/27/19 12:52 93 103/68 02/27/19 12:00 93 103/68 02/27/19 10:54 93 103/68 02/27/19 10:53 94 14 96 02/27/19 10:47 12 100 02/27/19 10:00 12 100 02/27/19 08:56 12 100 02/27/19 08:00 12 100 02/27/19 07:17 12 100 02/27/19 07:07 87 12 118/70 99 02/27/19 07:00 99.1 F 87 12 118/70 99 Weight Admit Weight 145 lb 15.136 oz Weight 145 lb Most Recent Monitor Data Heart Rate from ECG 98 NIBP 103/71 NIBP BP-Mean 79 Respiration from ECG 12 SpO2 95 I&O: 02/26/19 02/27/19 02/28/19 06:59 06:59 06:59 Intake Total 2163 2953.6 1551 Output Total 920 1845 965 Balance 1243 1108.6 586 Result Diagrams: 02/27/19 04:30 02/27/19 04:30 Additional Labs: Labs and MARs reviewed by me EKG Reviewed by me: Yes (Tele: NSR) Hospitalist ROS - Review of Systems ROS unobtainable: due to endotracheal tube - Medication Medications: Active Medications Generic Name Dose Route Start Last Admin Trade Name Freq PRN Reason Stop Dose Admin Albuterol/Ipratropium 3 ml 02/21/19 22:30 02/27/19 14:03 Duoneb NEB 3 ml [id number] CHELSEA Administration Atorvastatin Calcium 80 mg 02/22/19 21:00 02/26/19 20:57 Lipitor PO 80 mg HS CHELSEA Administration Enoxaparin Sodium 40 mg 02/22/19 09:00 02/27/19 08:23 Lovenox SC 40 mg 0900 CHELSEA Administration Famotidine 20 mg 02/21/19 21:00 02/27/19 08:23 Pepcid PO 20 mg BID CHELSEA Administration Sodium Chloride 1,000 mls @ 0 mls/hr 02/22/19 14:30 02/27/19 06:42 1/2 Normal Saline IV 1,000 mls .Q0M CHELSEA Administration KVO Fentanyl Citrate 2,000 mcg/ 100 mls @ 0 mls/hr 02/24/19 15:35 02/27/19 04:43 Sodium Chloride IV 03/26/19 15:35 100 mls INF CHELSEA Administration Protocol Per Protocol Palonosetron 0.25 mg/ Sodium 55 mls @ 165 mls/hr 02/27/19 11:30 02/27/19 14: 09 Chloride IVPB 55 mls WILLCALL CHELSEA Administration Dexamethasone Sodium Phosphate 51 mls @ 153 mls/hr 02/27/19 11:30 02/27/19 14 :09 10 mg/ Sodium Chloride IVPB 51 mls WILLCALL CHELSEA Administration Carboplatin 338.4 mg/ Sodium 283.84 mls @ 378.453 mls/hr 02/27/19 11:30 02/27 15:19 Chloride IVPB 283.84 mls WILLCALL CHELSEA Administration Etoposide 186 mg/ Sodium 509.3 mls @ 509.3 mls/hr 02/27/19 11:30 02/27/19 15: 19 Chloride IVPB 509.3 mls WILLCALL CHELSEA Administration Lorazepam 2 mg 02/24/19 15:35 02/27/19 17:07 Ativan SLOW IVP 03/26/19 15:35 2 mg Q1H PRN Administration Breakthrough agitation Methylprednisolone Sodium Succinate 40 mg 02/23/19 21:00 02/27/19 08:23 Solu-Medrol IVP 40 mg Q12HR CHELSEA Administration Ondansetron HCl 4 mg 02/21/19 20:58 02/23/19 15:11 Zofran IVP 4 mg Q6H PRN Administration Nausea/Vomiting Promethazine HCl 25 mg 02/23/19 15:25 02/23/19 22:09 Phenergan IM/IV 25 mg Q6H PRN Administration Nausea/Vomiting Propofol 1,000 mg 02/24/19 15:35 02/27/19 15:44 Diprivan IV 03/26/19 15:35 1,000 mg INF PRN Administration TO ACHIEVE GOAL RASS Protocol Sodium Chloride 10 ml 02/22/19 09:00 02/27/19 08:23 Flush - Normal Saline IVF Not Given Q12HR CHELSEA - Exam General - other findings: appears malnourished ENT - other findings: ETT Neck: no thyromegaly Heart: RRR Respiratory: CTAB Gastrointestinal: soft, non-tender Skin: no rashes Psychiatric - other findings: Unable to assess Hosp A/P (1) Acute respiratory failure with hypoxia Code(s): J96.01 - ACUTE RESPIRATORY FAILURE WITH HYPOXIA Status: Acute (2) Lung mass Code(s): R91.8 - OTHER NONSPECIFIC ABNORMAL FINDING OF LUNG FIELD Status: Acute (3) CAD (coronary artery disease) Code(s): I25.10 - ATHSCL HEART DISEASE OF [place] CORONARY ARTERY W/O ANG PCTRS Status: Chronic Qualifiers: Coronary Disease-Associated Artery/Lesion type: [place] artery [place] vs. transplanted heart: [place] heart Associated angina: without angina Qualified Code(s): I25.10 - Atherosclerotic heart disease of [place] coronary artery without angina pectoris (4) HTN (hypertension) Code(s): I10 - ESSENTIAL (PRIMARY) HYPERTENSION Status: Chronic Qualifiers: Hypertension type: essential hypertension Qualified Code(s): I10 - Essential (primary) hypertension (5) Tobacco abuse Code(s): Z72.0 - TOBACCO USE Status: Chronic - Plan continue antibiotics, respiratory therapy Pt starting chemo for SCLC. Currently intubated, managed in CCU. Continue levofloxacin.
[2019-02-27] MEDS: Atorvastatin Calcium 40 MG TAB PO SCH (20:27)
[2019-02-28] MEDS: Propofol 1,000 MG/100 ML VIAL IV PRN ×2 (01:09→15:28)
[2019-02-28 04:13] LABS: Band 4 % (5-11); Hemoglobin 11.1 g/dL (14.0-18.0); Lymphocytes 11 % (21-51); MDiff Complete? YES; Mean Corpuscular HGB CONC 34.1 g/dL (32.0-36.0); Mean Corpuscular Hemoglobin 32.2 pg (27.0-31.0); Mean Corpuscular Volume 94.5 fL (78.0-98.0); Mean Platelet Volume 7.3 fL (7.4-10.4); Monocytes 5 % (0-10); Neutrophil 80 % (42-75); Platelet Count 127 thou/uL (130-400); RBC Distribution Width 14.2 % (11.5-14.5); Red Blood Cell (RBC) Count 3.46 mill/uL (4.70-6.10); White Blood Cell (WBC) Count 8.9 thou/uL (4.8-10.8)
[2019-02-28 04:17] LABS: Anion Gap 10 mmol/L (10-20); BUN (Urea Nitrogen) 54 mg/dL (8.4-25.7); Calc. Creatinine Clearance 43 mL/min (70-130); Calcium 8.3 mg/dL (7.8-10.44); Carbon Dioxide 26 mmol/L (23-31); Chloride 109 mmol/L (98-107); Estimated GFR-MDRD 43; Glucose 159 mg/dL (80-115); Potassium 5.4 mmol/L (3.5-5.1); Sodium 140 mmol/L (136-145)
[2019-02-28] MEDS: fentaNYL Citrate/PF 2,000 MCG in Sodium Chloride 0.9% 60 ML IV SCH (05:11)
[2019-02-28] MEDS: Ondansetron PF 4 MG/2 ML Vial IVP PRN (05:41)
[2019-02-28 07:16] LABS: Actual Bicarbonate (HCO3a) 20.8 mEq/L (22-28); Base Excess (BEa) -4.2 mEq/L (-2.0 to +3.0); CO2 Tension 37.8 mmHg (35.0-45.0); Calcium, Ionized 1.19 mmol/L (1.12-1.30); Carboxyhemoglobin (COHb) 0.1 gm% (0.0-3.0); Hemoglobin (Hb) 11.9 g/dL (14.0-18.0); O2 Tension (PaO2) 63.9 mmHg (> 80.0); Potassium - ABG Lab 5.12 mmol/L (3.70-5.30); pH, Arterial 7.36 (7.35-7.45)
[2019-02-28 07:19] LABS: Puncture Site RRA
--- NOTE | 2019-02-28 07:56 | RAD ---
Chest AP view INDICATION: History of pneumonia COMPARISON: February 27, 2019 FINDINGS: Lungs:Right suprahilar opacity persists Cardiac silhouette:Prominent upper mediastinal and right paratracheal masses persist Pulmonary vasculature:Normal Pleural spaces:Small right-sided pleural effusion persists. Upper abdomen:No abnormality seen. Osseous structures: No acute osseous abnormality. Additional findings:ET tube and gastric catheter appear unchanged. IMPRESSION: Stable exam. No pneumothorax
--- NOTE | 2019-02-28 08:15 | PRG ---
DATE OF SERVICE: 02/28/2019 35 minutes critical care time. SUBJECTIVE: The patient is on the ventilator. He had some vomiting last night, which is assumed to be from the effects of the chemotherapy that he started yesterday for small-cell lung cancer. OBJECTIVE: VITAL SIGNS: His temperature is 98.4, pulse 126, blood pressure 111/69. 24-hour intake 2953, output 1845. HEENT: Unremarkable. NECK: No adenopathy or JVD. CHEST: Fairly clear anteriorly. CARDIAC: S1, S2. Regular. ABDOMEN: Soft. EXTREMITIES: No edema. LABORATORY DATA: Sodium 140, potassium 5.4, chloride 109, CO2 of 26, BUN 54, creatinine 1.6, and glucose 159. White blood cell count 8.9, hematocrit 32.7, and platelet count 127. ABG; pH of 7.36, pCO2 of 37, pO2 of 63. Chest x-ray is unchanged. ASSESSMENT: 1. Small cell lung cancer, extensive stage with a malignant right pleural effusion. 2. Acute respiratory failure requiring mechanical ventilation. 3. Hyperkalemia with some renal insufficiency. PLAN: 1. His DEON inhibitor was stopped yesterday. 2. We will start some Reglan for his nausea and vomiting. 3. Monitor blood counts as they will surely be decreasing given the administration of chemotherapy. 4. Monitor electrolytes closely given his potassium. Prognosis is extremely guarded. Job ID: [id number]
[2019-02-28] MEDS: Enoxaparin Sodium 40 MG/0.4 ML SYRINGE SC SCH (08:17)
[2019-02-28] MEDS: Metoclopramide HCl 10 MG/2 ML VIAL IVP SCH ×3 (08:18→20:54)
[2019-02-28] MEDS: methylPREDNISolone Sod Succ 40 MG VIAL IVP SCH ×2 (08:18→20:54)
[2019-02-28] MEDS: Famotidine 20 MG TAB PO SCH ×2 (08:19→20:55)
--- NOTE | 2019-02-28 10:49 | PDOC.MOPN ---
Interval History: Patient remains on vent, sedated. - Vital Signs Vital Signs: Vital Signs (12 hours) Temp Pulse Resp BP Pulse Ox 02/28/19 10:10 107 H 121/76 02/28/19 10:00 99.8 F H 19 96 02/28/19 08:53 99.8 F H 19 96 02/28/19 08:00 99.8 F H 19 96 02/28/19 07:50 19 96 02/28/19 07:12 104 H 02/28/19 07:00 104 H 02/28/19 06:00 14 02/28/19 04:00 98.4 F 13 02/28/19 02:10 105 H 12 96 02/28/19 02:00 12 02/28/19 00:00 98.9 F 12 02/27/19 23:07 95 12 95 Weight Admit Weight 145 lb 15.136 oz Weight 145 lb Most Recent Monitor Data Heart Rate from ECG 107 NIBP 121/76 NIBP BP-Mean 96 Respiration from ECG 13 SpO2 96 - Physical Exam General: Other (diprivan) Lungs: Other Cardiovascular: Other (tachycardia) Extremities: No clubbing, No cyanosis, No edema, Normal pulses, No tenderness/ swelling Skin: No rashes, No breakdown, No significant lesion - Labs Result Diagrams: 02/28/19 03:40 02/28/19 03:40 Lab results: Laboratory Results - last 24 hr 02/28/19 07:10: Specimen Type ARTERIAL, Puncture Site RRA, Bicarbonate Actual 20.8 L, ABG pH 7.36, ABG pCO2 37.8, ABG pO2 63.9, ABG O2 Sat Calc/Jamila 92.0 L, ABG O2 Content 15.4 L, ABG Base Excess -4.2 L, ABG Hematocrit 35.0 L, ABG Hemoglobin 11.9 L, ABG Oxyhemoglobin 91.6 L, ABG Carboxyhemoglobin 0.1, ABG Methemoglobin 0.30, ABG Deoxyhemoglobin 8.0 H, A-a O2 Gradient 109.880 H, Ionized Calcium 1.19, Mode of Support SIMV/PC, % Minute Volume 9.4, Mechanical Rate 12, Spontaneous Rate 6, Inspired O2 31, Inspiratory Time 0.97, Spontaneous Tidal Vol 743, Peak Inspir Pressure 20, Pressure Support 8, PEEP or CPAP 8.0, Sodium 140, Potassium 5.12, Chloride 108 H 02/28/19 03:40: WBC 8.9, RBC 3.46 L, Hgb 11.1 L, Hct 32.7 L, MCV 94.5, MCH 32.2 H, MCHC 34.1, RDW 14.2, Plt Count 127 L, MPV 7.3 L, Neutrophils % (Manual) 80 H , Band Neuts % (Manual) 4 L, Lymphocytes % (Manual) 11 L, Monocytes % (Manual) 5 02/28/19 03:40: Sodium 140, Potassium 5.4 H, Chloride 109 H, Carbon Dioxide 26, Anion Gap 10, BUN 54 H, Creatinine 1.63 H, Estimated GFR (MDRD) 43, Glucose 159 H, Calcium 8.3 Status: lab reviewed by me A/P - Problem (1) Acute respiratory failure with hypoxia Current Visit: Yes Code(s): J96.01 - ACUTE RESPIRATORY FAILURE WITH HYPOXIA Status: Acute (2) Lung mass Current Visit: Yes Code(s): R91.8 - OTHER NONSPECIFIC ABNORMAL FINDING OF LUNG FIELD Status: Acute - Plan Plan: C1D2 chemo Supportive care. Will update sisterEvon.
--- NOTE | 2019-02-28 12:08 | PDOC.HOSPP ---
- Subjective Encounter Date: 02/28/19 Encounter Time: 12:00 Subjective: patient is new to me. seen and examined at bedside intubated, sedated, eyes open. nurse notes no acute events. receiving day 2 of chemotherapy. no SBT done. - Objective Vital Signs & Weight: Vital Signs (12 hours) Temp Pulse Resp BP Pulse Ox 02/28/19 11:00 107 H 121/76 02/28/19 10:10 107 H 121/76 02/28/19 10:00 99.8 F H 19 96 02/28/19 08:53 99.8 F H 19 96 02/28/19 08:00 99.8 F H 19 96 02/28/19 07:50 19 96 02/28/19 07:12 104 H 02/28/19 07:00 104 H 02/28/19 06:00 14 02/28/19 04:00 98.4 F 13 02/28/19 02:10 105 H 12 96 02/28/19 02:00 12 Weight Admit Weight 145 lb 15.136 oz Weight 145 lb Most Recent Monitor Data Heart Rate from ECG 115 NIBP 115/82 NIBP BP-Mean 99 Respiration from ECG 11 SpO2 95 I&O: 02/27/19 02/28/19 03/01/19 06:59 06:59 06:59 Intake Total 2953.6 2605 0 Output Total 1845 1880 320 Balance 1108.6 725 -320 Result Diagrams: 03/01/19 04:33 03/01/19 04:33 Hospitalist ROS - Review of Systems Other: pertinent positives per SUBJECTIVE; remainder ROS otherwise negative. unable to complete as patient intubated and sedated - Medication Medications: Active Medications Generic Name Dose Route Start Last Admin Trade Name Freq PRN Reason Stop Dose Admin Albuterol/Ipratropium 3 ml 02/21/19 22:30 02/28/19 10:10 Duoneb NEB 3 ml [id number] CHELSEA Administration Atorvastatin Calcium 80 mg 02/22/19 21:00 02/27/19 20:27 Lipitor PO 80 mg HS CHELSEA Administration Enoxaparin Sodium 40 mg 02/22/19 09:00 02/28/19 08:17 Lovenox SC 40 mg 0900 CHELSEA Administration Famotidine 20 mg 02/21/19 21:00 02/28/19 08:19 Pepcid PO 20 mg BID CHELSEA Administration Sodium Chloride 1,000 mls @ 0 mls/hr 02/22/19 14:30 02/27/19 06:42 1/2 Normal Saline IV 1,000 mls .Q0M CHELSEA Administration KVO Fentanyl Citrate 2,000 mcg/ 100 mls @ 0 mls/hr 02/24/19 15:35 02/28/19 05:11 Sodium Chloride IV 03/26/19 15:35 100 mls INF CHELSEA Administration Protocol Per Protocol Palonosetron 0.25 mg/ Sodium 55 mls @ 165 mls/hr 02/27/19 11:30 02/27/19 14: 09 Chloride IVPB 55 mls WILLCALL CHELSEA Administration Dexamethasone Sodium Phosphate 51 mls @ 153 mls/hr 02/27/19 11:30 02/27/19 14 :09 10 mg/ Sodium Chloride IVPB 51 mls WILLCALL CHELSEA Administration Carboplatin 338.4 mg/ Sodium 283.84 mls @ 378.453 mls/hr 02/27/19 11:30 02/27 15:19 Chloride IVPB 283.84 mls WILLCALL CHELSEA Administration Etoposide 186 mg/ Sodium 509.3 mls @ 509.3 mls/hr 02/27/19 11:30 02/27/19 15: 19 Chloride IVPB 509.3 mls WILLCALL CHELSEA Administration Lorazepam 2 mg 02/24/19 15:35 02/27/19 17:07 Ativan SLOW IVP 03/26/19 15:35 2 mg Q1H PRN Administration Breakthrough agitation Methylprednisolone Sodium Succinate 40 mg 02/23/19 21:00 02/28/19 08:18 Solu-Medrol IVP 40 mg Q12HR CHELSEA Administration Metoclopramide HCl 10 mg 02/28/19 07:45 02/28/19 08:18 Reglan IVP 10 mg Q6H CHELSEA Administration Ondansetron HCl 4 mg 02/21/19 20:58 02/28/19 05:41 Zofran IVP 4 mg Q6H PRN Administration Nausea/Vomiting Promethazine HCl 25 mg 02/23/19 15:25 02/23/19 22:09 Phenergan IM/IV 25 mg Q6H PRN Administration Nausea/Vomiting Propofol 1,000 mg 02/24/19 15:35 02/28/19 01:09 Diprivan IV 03/26/19 15:35 1,000 mg INF PRN Administration TO ACHIEVE GOAL RASS Protocol Sodium Chloride 10 ml 02/22/19 09:00 02/28/19 08:19 Flush - Normal Saline IVF 10 ml Q12HR CHELSEA Administration - Exam General - other findings: intubated, sedated Eye - other findings: PERR, EOMI ENT: normocephalic atraumatic ENT - other findings: ETT, NGT noted. Heart - other findings: s1 and s2 RRR, no murmurs Respiratory - other findings: bilateral equal air entry on anterior auscultation , rhonchi, ETT noted. Gastrointestinal: soft, non-tender, non-distended Extremities: no cyanosis, no edema Skin: no lesions, no rashes Neurological - other findings: unable to assess Musculoskeletal - other findings: unable to assess Psychiatric - other findings: unable to assess Hosp A/P - Plan Acute respiratory failure with hypoxia requiring ventilator dependence, due to SCLCa. vent mgmt per fluxer. chemotherapy for obstructing mass, per oncology, to facilitate extubation. on IV antibiotics. SCLca. noted per right thoracentesis. bronchoscopy noted with obstructing mass and airway compression. MRI brain negative. oncology administering chemotherapy (day 2) to facilitate extubation from obstructing mass CAD Nicotine dependence. DVT px dispo: continue ICU care check AM labs code status: DNAR 02/28/19 SEEN AND EXAMINED
[2019-02-28] MEDS: SODIUM CHLORIDE 0.9% IVPB SCH (15:24)
[2019-02-28] MEDS: ETOPOSIDE IVPB SCH (15:24)
[2019-02-28] MEDS: Atorvastatin Calcium 40 MG TAB PO SCH (20:55)
[2019-03-01] MEDS: Propofol 1,000 MG/100 ML VIAL IV PRN ×3 (00:58→18:19)
[2019-03-01] MEDS: Metoclopramide HCl 10 MG/2 ML VIAL IVP SCH ×4 (02:44→20:18)
[2019-03-01 04:50] LABS: #Lymphocytes 0.7 thou/uL (1.20-3.40); #Monocytes 0.3 thou/uL (0.11-0.59); #Neutrophils 6.2 thou/uL (1.40-6.50); %Basophils 0.2 % (0.0-1.0); %Eosinophils 0.3 % (0.0-10.0); %Lymphocytes 10.2 % (21.0-51.0); %Monocytes 4.2 % (0.0-10.0); %Neutrophils 85.2 % (42.0-75.0); Hemoglobin 11.5 g/dL (14.0-18.0); Mean Corpuscular HGB CONC 33.4 g/dL (32.0-36.0); Mean Corpuscular Hemoglobin 31.8 pg (27.0-31.0); Mean Corpuscular Volume 95.2 fL (78.0-98.0); Mean Platelet Volume 7.7 fL (7.4-10.4); Platelet Count 115 thou/uL (130-400); RBC Distribution Width 14.3 % (11.5-14.5); Red Blood Cell (RBC) Count 3.63 mill/uL (4.70-6.10); White Blood Cell (WBC) Count 7.2 thou/uL (4.8-10.8)
[2019-03-01 05:09] LABS: Anion Gap 13 mmol/L (10-20); BUN (Urea Nitrogen) 61 mg/dL (8.4-25.7); Calc. Creatinine Clearance 47 mL/min (70-130); Calcium 8.3 mg/dL (7.8-10.44); Carbon Dioxide 25 mmol/L (23-31); Chloride 111 mmol/L (98-107); Estimated GFR-MDRD 48; Glucose 146 mg/dL (80-115); Potassium 5.5 mmol/L (3.5-5.1); Sodium 143 mmol/L (136-145)
[2019-03-01] MEDS: fentaNYL Citrate/PF 2,000 MCG in Sodium Chloride 0.9% 60 ML IV SCH (05:12)
[2019-03-01 06:37] LABS: Actual Bicarbonate (HCO3a) 25.9 mEq/L (22-28); Base Excess (BEa) -0.6 mEq/L (-2.0 to +3.0); CO2 Tension 50.5 mmHg (35.0-45.0); Calcium, Ionized 1.13 mmol/L (1.12-1.30); Carboxyhemoglobin (COHb) 0.6 gm% (0.0-3.0); Hemoglobin (Hb) 11.9 g/dL (14.0-18.0); O2 Tension (PaO2) 76.4 mmHg (> 80.0); Potassium - ABG Lab 5.34 mmol/L (3.70-5.30); pH, Arterial 7.33 (7.35-7.45)
[2019-03-01 06:51] LABS: Puncture Site RRAD
[2019-03-01 06:52] LABS: ALV-art Gradient 81.505 (0-20)
--- NOTE | 2019-03-01 08:13 | PRG ---
DATE OF SERVICE: 03/01/2019 35 minutes critical care time. SUBJECTIVE: The patient is having difficulty with nausea and vomiting. His tube feeds have been held. He has excess gastric residuals. He remains on mechanical ventilation. OBJECTIVE: VITAL SIGNS: On exam, temperature 98.4, pulse 101, blood pressure 107/72, and O2 saturation 97%. Intake for 24 hours 1922, output 2480. HEENT: Unremarkable. NECK: No JVD. LUNGS: Clear anteriorly. CARDIAC: S1, S2. Slightly tachycardic. ABDOMEN: Soft. EXTREMITIES: Severe muscle wasting. NEUROLOGICAL: I cannot get him to follow commands for me. LABORATORY DATA: PH 7.33, pCO2 of 50, pO2 of 76 on SIMV rate 12, pressure 20, PEEP 8, FiO2 31%. White blood cell count 7.2, hematocrit 34.5, and platelet count 115. Sodium 143, potassium 5.5, chloride 111, CO2 of 25, BUN 61, creatinine 1.5, glucose 146. ASSESSMENT: 1. Small cell lung cancer, extensive stage. 2. Acute respiratory failure requiring mechanical ventilation. 3. History of stroke with left-sided hemiparesis. 4. Mild hyperkalemia. 5. Acute renal insufficiency. PLAN: 1. I will increase the Zofran dose. 2. We will hold tube feedings. 3. Continue Reglan. 4. He is not weanable until we start to see the effects of the chemotherapy. He has high-grade stenosis of both mainstem bronchi. 5. Prognosis remains quite poor. Job ID: [id number]
[2019-03-01] MEDS: methylPREDNISolone Sod Succ 40 MG VIAL IVP SCH ×2 (08:37→21:43)
[2019-03-01] MEDS: Enoxaparin Sodium 40 MG/0.4 ML SYRINGE SC SCH (08:37)
[2019-03-01] MEDS: Famotidine 20 MG TAB PO SCH ×2 (08:37→21:43)
--- NOTE | 2019-03-01 09:07 | RAD ---
Frontal radiograph chest: Date: 03/01/2019. COMPARISON: 02/28/2019. HISTORY: Pneumonia. FINDINGS: There is soft tissue density suggesting mass in the right suprahilar region/right paratracheal region , as seen on the prior examination. Stable endotracheal tube and nasogastric tube. No pneumothorax is evident. Small right pleural effusion. IMPRESSION: Stable portable chest radiograph. POS: OFF
--- NOTE | 2019-03-01 09:11 | PDOC.HOSPP ---
- Subjective Encounter Date: 03/01/19 Encounter Time: 09:10 Subjective: Mr. Beckford was seen today in follow-up of respiratory failure and advanced cancer. He is intubated and sedated. - Objective Vital Signs & Weight: Vital Signs (12 hours) Temp Pulse Resp Pulse Ox 03/01/19 06:17 98 14 96 03/01/19 06:00 14 03/01/19 04:00 98.4 F 17 03/01/19 02:11 102 H 12 96 03/01/19 02:00 17 03/01/19 00:00 98.9 F 14 02/28/19 22:04 104 H 12 96 02/28/19 22:00 18 Weight Admit Weight 145 lb 15.136 oz Weight 145 lb Most Recent Monitor Data Heart Rate from ECG 105 NIBP 97/66 NIBP BP-Mean 81 Respiration from ECG 16 SpO2 98 I&O: 02/28/19 03/01/19 03/02/19 06:59 06:59 06:59 Intake Total 2605 1922 Output Total 1880 2480 Balance 725 -838 Result Diagrams: 03/01/19 04:33 03/01/19 04:33 Hospitalist ROS - Medication Medications: Active Medications Generic Name Dose Route Start Last Admin Trade Name Freq PRN Reason Stop Dose Admin Albuterol/Ipratropium 3 ml 02/21/19 22:30 03/01/19 06:17 Duoneb NEB 3 ml [id number] CHELSEA Administration Atorvastatin Calcium 80 mg 02/22/19 21:00 02/28/19 20:55 Lipitor PO 80 mg HS CHELSEA Administration Enoxaparin Sodium 40 mg 02/22/19 09:00 03/01/19 08:37 Lovenox SC 40 mg 0900 CHELSEA Administration Famotidine 20 mg 02/21/19 21:00 03/01/19 08:37 Pepcid PO 20 mg BID CHELSEA Administration Sodium Chloride 1,000 mls @ 0 mls/hr 02/22/19 14:30 02/27/19 06:42 1/2 Normal Saline IV 1,000 mls .Q0M CHELSEA Administration KVO Fentanyl Citrate 2,000 mcg/ 100 mls @ 0 mls/hr 02/24/19 15:35 03/01/19 05:12 Sodium Chloride IV 03/26/19 15:35 100 mls INF CHELSEA Administration Protocol Per Protocol Palonosetron 0.25 mg/ Sodium 55 mls @ 165 mls/hr 02/27/19 11:30 02/27/19 14: 09 Chloride IVPB 55 mls WILLCALL CHELSEA Administration Dexamethasone Sodium Phosphate 51 mls @ 153 mls/hr 02/27/19 11:30 02/27/19 14 :09 10 mg/ Sodium Chloride IVPB 51 mls WILLCALL CHELSEA Administration Carboplatin 338.4 mg/ Sodium 283.84 mls @ 378.453 mls/hr 02/27/19 11:30 02/27 15:19 Chloride IVPB 283.84 mls WILLCALL CHELSEA Administration Etoposide 186 mg/ Sodium 509.3 mls @ 509.3 mls/hr 02/27/19 11:30 02/28/19 15: 24 Chloride IVPB 509.3 mls WILLCALL CHELSEA Administration Levofloxacin 750 mg/ Device 150 mls @ 100 mls/hr 03/01/19 09:00 03/01/19 08: 37 IVPB 150 mls Q2D@0900 CHELSEA Administration Lorazepam 2 mg 02/24/19 15:35 02/27/19 17:07 Ativan SLOW IVP 03/26/19 15:35 2 mg Q1H PRN Administration Breakthrough agitation Methylprednisolone Sodium Succinate 40 mg 02/23/19 21:00 03/01/19 08:37 Solu-Medrol IVP 40 mg Q12HR CHELSEA Administration Metoclopramide HCl 10 mg 02/28/19 07:45 03/01/19 08:41 Reglan IVP 10 mg Q6H CHELSEA Administration Promethazine HCl 25 mg 02/23/19 15:25 02/23/19 22:09 Phenergan IM/IV 25 mg Q6H PRN Administration Nausea/Vomiting Propofol 1,000 mg 02/24/19 15:35 03/01/19 07:35 Diprivan IV 03/26/19 15:35 1,000 mg INF PRN Administration TO ACHIEVE GOAL RASS Protocol Sodium Chloride 10 ml 02/22/19 09:00 03/01/19 08:38 Flush - Normal Saline IVF 10 ml Q12HR CHELSEA Administration Sodium Polystyrene Sulfonate 15 gm 03/01/19 08:00 03/01/19 08:36 Kayexalate Oral Susp 15 Gm/60 Ml SD 03/01/19 12:00 15 gm NOW CHELSEA Administration - Exam Eye: PERRL Heart: RRR, no murmur, no gallops, no rubs, normal peripheral pulses Respiratory: CTAB (with coarse breath sounds bilaterally), no rales, no ronchi Gastrointestinal: soft, normal bowel sounds Extremities: no cyanosis, no clubbing, no edema Musculoskeletal: diffuse muscle atrophy Hosp A/P (1) Acute respiratory failure with hypoxia Code(s): J96.01 - ACUTE RESPIRATORY FAILURE WITH HYPOXIA Status: Acute (2) Lung mass Code(s): R91.8 - OTHER NONSPECIFIC ABNORMAL FINDING OF LUNG FIELD Status: Acute (3) Small cell carcinoma of right lung Code(s): C34.91 - MALIGNANT NEOPLASM OF UNSP PART OF RIGHT BRONCHUS OR LUNG Status: Chronic (4) CAD (coronary artery disease) Code(s): I25.10 - ATHSCL HEART DISEASE OF [place] CORONARY ARTERY W/O ANG PCTRS Status: Chronic Qualifiers: Coronary Disease-Associated Artery/Lesion type: [place] artery [place] vs. transplanted heart: [place] heart Associated angina: without angina Qualified Code(s): I25.10 - Atherosclerotic heart disease of [place] coronary artery without angina pectoris (5) HTN (hypertension) Code(s): I10 - ESSENTIAL (PRIMARY) HYPERTENSION Status: Chronic Qualifiers: Hypertension type: essential hypertension Qualified Code(s): I10 - Essential (primary) hypertension - Plan * Acute respiratory failure- due to advanced cancer with endobronchial lesions- patient is currently undergoing chemotherapy * Continue Empiric IV antibiotics * HTN- blood pressure is on the lower side- will monitor- may need a fluid bolus * Nutritional support with tube feeding * Continue GI and DVT Prophylaxis
[2019-03-01] MEDS: SODIUM CHLORIDE 0.9% IVPB SCH (12:13)
[2019-03-01] MEDS: ETOPOSIDE IVPB SCH (12:13)
[2019-03-01] MEDS: Ondansetron PF 4 MG/2 ML Vial IVP PRN (13:41)
[2019-03-01 14:55] VITALS: BMI 19.6
--- NOTE | 2019-03-01 15:46 | PDOC.MOPN ---
Interval History: remains on vent, comfortable. - Vital Signs Vital Signs: Vital Signs (12 hours) Temp Pulse Resp BP Pulse Ox 03/01/19 14:36 95 16 99 03/01/19 14:00 16 03/01/19 12:00 16 03/01/19 10:19 94 94/65 03/01/19 10:17 94 16 100 03/01/19 10:00 16 03/01/19 08:00 14 97 03/01/19 07:00 99.9 F H 03/01/19 06:17 98 14 96 03/01/19 06:00 14 03/01/19 04:00 98.4 F 17 Weight Admit Weight 145 lb 15.136 oz Weight 145 lb Most Recent Monitor Data Heart Rate from ECG 97 NIBP 89/60 NIBP BP-Mean 71 Respiration from ECG 16 SpO2 100 - Physical Exam General: No acute distress Lungs: Clear to auscultation Cardiovascular: Regular rate Abdomen: Normal bowel sounds Extremities: No clubbing, No cyanosis, No edema, Normal pulses, No tenderness/ swelling Skin: No rashes, No breakdown, No significant lesion Neurological: Other (sedated) - Labs Result Diagrams: 03/01/19 04:33 03/01/19 04:33 Lab results: Laboratory Results - last 24 hr 03/01/19 06:28: Specimen Type ARTERIAL, Puncture Site RRAD, Bicarbonate Actual 25.9, ABG pH 7.33 L, ABG pCO2 50.5 H, ABG pO2 76.4, ABG O2 Sat Calc/Jamila 94.7, ABG O2 Content 15.8 L, ABG Base Excess -0.6, ABG Hematocrit 35.0 L, ABG Hemoglobin 11.9 L, ABG Oxyhemoglobin 93.8 L, ABG Carboxyhemoglobin 0.6, ABG Methemoglobin 0.30, ABG Deoxyhemoglobin 5.3 H, Suleman Test POSITIVE, A-a O2 Gradient 81.505 H, Ionized Calcium 1.13, Mode of Support SIMV-PC, % Minute Volume 7.7, Mechanical Rate 12, Spontaneous Rate 2, Inspired O2 31, Inspiratory Time 0.70, Tidal Volume 531, Peak Inspir Pressure 20, Pressure Support 10, PEEP or CPAP 8.0, Sodium 143, Potassium 5.34 H, Chloride 110 H 03/01/19 04:33: WBC 7.2, RBC 3.63 L, Hgb 11.5 L, Hct 34.5 L, MCV 95.2, MCH 31.8 H, MCHC 33.4, RDW 14.3, Plt Count 115 L, MPV 7.7, Neutrophils % 85.2 H, Neutrophils % (Manual) Not Reportable, Lymphocytes % 10.2 L, Monocytes % 4.2, Eosinophils % 0.3, Basophils % 0.2, Neutrophils # 6.2, Lymphocytes # 0.7 L, Monocytes # 0.3, Eosinophils # 0.0, Basophils # 0.0 03/01/19 04:33: Sodium 143, Potassium 5.5 H, Chloride 111 H, Carbon Dioxide 25, Anion Gap 13, BUN 61 H, Creatinine 1.48 H, Estimated GFR (MDRD) 48, Glucose 146 H, Calcium 8.3 Status: lab reviewed by me A/P - Problem (1) Acute respiratory failure with hypoxia Current Visit: Yes Code(s): J96.01 - ACUTE RESPIRATORY FAILURE WITH HYPOXIA Status: Acute (2) Lung mass Current Visit: Yes Code(s): R91.8 - OTHER NONSPECIFIC ABNORMAL FINDING OF LUNG FIELD Status: Acute - Plan Plan: C1D3 chemo. Hospital does not provide neulasta on formulary. Patient high risk for neutropenia. Monitor CBC closely. Tumor should respond well to treatment. Hopefully, be able to extubate next week.
[2019-03-01] MEDS: Atorvastatin Calcium 40 MG TAB PO SCH (21:43)
[2019-03-01] MEDS: Bacteriostatic Water 30 ML VIAL FS PRN (21:44)
[2019-03-02] MEDS: fentaNYL Citrate/PF 2,000 MCG in Sodium Chloride 0.9% 60 ML IV SCH ×2 (01:15→21:16)
[2019-03-02] MEDS: Metoclopramide HCl 10 MG/2 ML VIAL IVP SCH ×4 (02:21→20:09)
[2019-03-02 05:04] LABS: #Lymphocytes 0.6 thou/uL (1.20-3.40); #Monocytes 0.1 thou/uL (0.11-0.59); #Neutrophils 5.1 thou/uL (1.40-6.50); %Basophils 0.3 % (0.0-1.0); %Eosinophils 0.1 % (0.0-10.0); %Lymphocytes 10.2 % (21.0-51.0); %Monocytes 1.2 % (0.0-10.0); %Neutrophils 88.2 % (42.0-75.0); Hemoglobin 11.2 g/dL (14.0-18.0); Mean Corpuscular HGB CONC 34.4 g/dL (32.0-36.0); Mean Corpuscular Hemoglobin 32.2 pg (27.0-31.0); Mean Corpuscular Volume 93.7 fL (78.0-98.0); Mean Platelet Volume 8.2 fL (7.4-10.4); Platelet Count 102 thou/uL (130-400); RBC Distribution Width 14.2 % (11.5-14.5); Red Blood Cell (RBC) Count 3.49 mill/uL (4.70-6.10); White Blood Cell (WBC) Count 5.7 thou/uL (4.8-10.8)
[2019-03-02 05:20] LABS: Anion Gap 12 mmol/L (10-20); BUN (Urea Nitrogen) 67 mg/dL (8.4-25.7); Calc. Creatinine Clearance 53 mL/min (70-130); Calcium 7.7 mg/dL (7.8-10.44); Carbon Dioxide 25 mmol/L (23-31); Chloride 113 mmol/L (98-107); Estimated GFR-MDRD 55; Glucose 149 mg/dL (80-115); Potassium 4.9 mmol/L (3.5-5.1); Sodium 145 mmol/L (136-145)
[2019-03-02 07:24] LABS: Actual Bicarbonate (HCO3a) 24.2 mEq/L (22-28); Base Excess (BEa) -0.5 mEq/L (-2.0 to +3.0); CO2 Tension 40.3 mmHg (35.0-45.0); Calcium, Ionized 1.07 mmol/L (1.12-1.30); Carboxyhemoglobin (COHb) 0.8 gm% (0.0-3.0); Hemoglobin (Hb) 11.9 g/dL (14.0-18.0); O2 Tension (PaO2) 69.3 mmHg (> 80.0); Potassium - ABG Lab 4.62 mmol/L (3.70-5.30)
[2019-03-02 07:44] LABS: ALV-art Gradient 101.355 (0-20); Puncture Site RRAD
--- NOTE | 2019-03-02 08:40 | PRG ---
DATE OF SERVICE: 03/02/2019 SUBJECTIVE: This morning, he was intubated in the vent. He is status post chemotherapy for small-cell cancer, intubated marked airway compromise. OBJECTIVE: VITAL SIGNS: His sats are 96%, blood pressure 100/73, pulse 93, and respiratory rate 14. CHEST: Reveals extensive bilateral rhonchi, right greater than left. CARDIAC: Sinus tach. ABDOMEN: Soft. IMPRESSION: Respiratory failure, small-cell cancer extensive with marked compromise of the airways. Severe deconditioning, renal failure. PLAN: He is not weanable at this stage. We will start nutrition. Continue vent support, steroids, chemotherapy as per Oncology. To note, his creatinine is 1.32. White count 5000, platelet count is 102. He apparently is a DNR at this stage. We will follow. One-half hour of critical time. Job ID: [id number]
[2019-03-02] MEDS: Enoxaparin Sodium 40 MG/0.4 ML SYRINGE SC SCH (08:59)
[2019-03-02] MEDS: Famotidine 20 MG TAB PO SCH ×2 (09:00→21:21)
[2019-03-02] MEDS: methylPREDNISolone Sod Succ 40 MG VIAL IVP SCH ×2 (09:00→21:22)
--- NOTE | 2019-03-02 09:08 | RAD ---
RADIOGRAPH CHEST 1 VIEW: DATE: 03/02/2019 TIME: 5:07 AM HISTORY: 63-year-old male in respiratory failure and "pneumonia. " COMPARISON: 03/01/2019 FINDINGS: There has been no interval change overall. IMPRESSION: 1) right mediastinal-hilar malignant neoplastic tumor mass. 2.) Right pleural effusion. 3) endotracheal tube and esophagogastric tube remain. 4) left lung is clear. 5) no interval change.
--- NOTE | 2019-03-02 10:02 | PDOC.HOSPP ---
- Subjective Encounter Date: 03/02/19 Encounter Time: 10:01 Subjective: Mr. Beckford was seen today in follow-up of acute respiratory failure. He is intubated and sedated. No complaints voiced by staff. - Objective Vital Signs & Weight: Vital Signs (12 hours) Temp Pulse Resp BP 03/02/19 08:00 97.8 F 15 03/02/19 07:55 132 H 03/02/19 06:00 16 03/02/19 04:00 99.7 F H 16 03/02/19 03:09 95 109/76 03/02/19 02:00 16 03/02/19 00:52 98 03/02/19 00:00 99.7 F H 16 03/01/19 22:22 94 115/77 Weight Admit Weight 145 lb 15.136 oz Weight 145 lb Most Recent Monitor Data Heart Rate from ECG 89 NIBP 109/73 NIBP BP-Mean 83 Respiration from ECG 16 SpO2 97 I&O: 03/01/19 03/02/19 03/03/19 06:59 06:59 06:59 Intake Total 1922 1256.9 Output Total 2480 2375 385 [facility] -558 -1118.1 -385 Result Diagrams: 03/02/19 04:35 03/02/19 03:30 Hospitalist ROS - Medication Medications: Active Medications Generic Name Dose Route Start Last Admin Trade Name Freq PRN Reason Stop Dose Admin Albuterol/Ipratropium 3 ml 02/21/19 22:30 03/02/19 07:55 Duoneb NEB 3 ml [id number] CHELSEA Administration Atorvastatin Calcium 80 mg 02/22/19 21:00 03/01/19 21:43 Lipitor PO 80 mg HS CHELSEA Administration Enoxaparin Sodium 40 mg 02/22/19 09:00 03/02/19 08:59 Lovenox SC 40 mg 0900 CHELSEA Administration Famotidine 20 mg 02/21/19 21:00 03/02/19 09:00 Pepcid PO 20 mg BID CHELSEA Administration Sodium Chloride 1,000 mls @ 0 mls/hr 02/22/19 14:30 02/27/19 06:42 1/2 Normal Saline IV 1,000 mls .Q0M CHELSEA Administration KVO Fentanyl Citrate 2,000 mcg/ 100 mls @ 0 mls/hr 02/24/19 15:35 11/16/19 01:15 Sodium Chloride IV 03/26/19 15:35 100 mls INF CHELSEA Administration Protocol Per Protocol Palonosetron 0.25 mg/ Sodium 55 mls @ 165 mls/hr 02/27/19 11:30 02/27/19 14: 09 Chloride IVPB 55 mls WILLCALL CHELSEA Administration Dexamethasone Sodium Phosphate 51 mls @ 153 mls/hr 02/27/19 11:30 02/27/19 14 :09 10 mg/ Sodium Chloride IVPB 51 mls WILLCALL CHELSEA Administration Carboplatin 338.4 mg/ Sodium 283.84 mls @ 378.453 mls/hr 02/27/19 11:30 02/27 15:19 Chloride IVPB 283.84 mls WILLCALL CHELSEA Administration Etoposide 186 mg/ Sodium 509.3 mls @ 509.3 mls/hr 02/27/19 11:30 03/01/19 12: 13 Chloride IVPB 509.3 mls WILLCALL CHELSEA Administration Levofloxacin 750 mg/ Device 150 mls @ 100 mls/hr 03/01/19 09:00 03/01/19 08: 37 IVPB 150 mls Q2D@0900 CHELSEA Administration Lorazepam 2 mg 02/24/19 15:35 02/27/19 17:07 Ativan SLOW IVP 03/26/19 15:35 2 mg Q1H PRN Administration Breakthrough agitation Methylprednisolone Sodium Succinate 40 mg 02/23/19 21:00 03/02/19 09:00 Solu-Medrol IVP 40 mg Q12HR CHELSEA Administration Metoclopramide HCl 10 mg 02/28/19 07:45 03/02/19 09:00 Reglan IVP 10 mg Q6H CHELSEA Administration Ondansetron HCl 8 mg 03/01/19 07:53 03/01/19 13:41 Zofran IVP 8 mg Q6H PRN Administration Nausea/Vomiting Promethazine HCl 25 mg 02/23/19 15:25 02/23/19 22:09 Phenergan IM/IV 25 mg Q6H PRN Administration Nausea/Vomiting Propofol 1,000 mg 02/24/19 15:35 03/01/19 18:19 Diprivan IV 03/26/19 15:35 1,000 mg INF PRN Administration TO ACHIEVE GOAL RASS Protocol Sodium Chloride 10 ml 02/22/19 09:00 03/02/19 09:00 Flush - Normal Saline IVF 10 ml Q12HR CHELSEA Administration Sterile Water 1 ml 02/21/19 21:56 03/01/19 21:44 Bacteriostatic Water FS 1 ml PRN PRN Administration RECONSTITUTION - Exam Eye: PERRL, anicteric sclera Heart: RRR, no murmur, no gallops, no rubs, normal peripheral pulses Respiratory: CTAB (+ coarse breath sounds,), no wheezes, no rales, no ronchi Gastrointestinal: soft, normal bowel sounds Extremities: no edema (no edema in the lower extremities, but bilateral upper extremity edema) Hosp A/P (1) Acute respiratory failure with hypoxia Code(s): J96.01 - ACUTE RESPIRATORY FAILURE WITH HYPOXIA Status: Acute (2) Lung mass Code(s): R91.8 - OTHER NONSPECIFIC ABNORMAL FINDING OF LUNG FIELD Status: Acute (3) Small cell carcinoma of right lung Code(s): C34.91 - MALIGNANT NEOPLASM OF UNSP PART OF RIGHT BRONCHUS OR LUNG Status: Chronic (4) CAD (coronary artery disease) Code(s): I25.10 - ATHSCL HEART DISEASE OF [place] CORONARY ARTERY W/O ANG PCTRS Status: Chronic Qualifiers: Coronary Disease-Associated Artery/Lesion type: [place] artery [place] vs. transplanted heart: [place] heart Associated angina: without angina Qualified Code(s): I25.10 - Atherosclerotic heart disease of [place] coronary artery without angina pectoris (5) HTN (hypertension) Code(s): I10 - ESSENTIAL (PRIMARY) HYPERTENSION Status: Chronic Qualifiers: Hypertension type: essential hypertension Qualified Code(s): I10 - Essential (primary) hypertension - Plan * Acute respiratory failure- due to advanced cancer with endobronchial lesions- patient is currently undergoing chemotherapy * HTN- blood pressure is on the lower side- blood pressure is better today * Nutritional support - continue tube feeding * Continue GI and DVT Prophylaxis
[2019-03-02] MEDS: Propofol 1,000 MG/100 ML VIAL IV PRN ×2 (10:26→17:20)
[2019-03-02] MEDS: Sodium Chloride 0.45% 1,000 ML IV SCH (17:20)
[2019-03-02] MEDS: Atorvastatin Calcium 40 MG TAB PO SCH (21:21)
[2019-03-02] MEDS: Bacteriostatic Water 30 ML VIAL FS PRN (21:22)
[2019-03-03] MEDS: Metoclopramide HCl 10 MG/2 ML VIAL IVP SCH ×4 (03:37→19:25)
[2019-03-03] MEDS: Propofol 1,000 MG/100 ML VIAL IV PRN ×3 (04:44→22:10)
[2019-03-03 04:51] LABS: #Lymphocytes 0.5 thou/uL (1.20-3.40); #Monocytes 0.1 thou/uL (0.11-0.59); #Neutrophils 4.5 thou/uL (1.40-6.50); %Lymphocytes 9.4 % (21.0-51.0); %Monocytes 1.5 % (0.0-10.0); %Neutrophils 89.1 % (42.0-75.0); Hemoglobin 10.9 g/dL (14.0-18.0); Mean Corpuscular HGB CONC 34.6 g/dL (32.0-36.0); Mean Corpuscular Hemoglobin 32.5 pg (27.0-31.0); Mean Corpuscular Volume 94.1 fL (78.0-98.0); Mean Platelet Volume 7.9 fL (7.4-10.4); Platelet Count 87 thou/uL (130-400); Red Blood Cell (RBC) Count 3.36 mill/uL (4.70-6.10)
[2019-03-03 07:11] LABS: Anion Gap 10 mmol/L (10-20); BUN (Urea Nitrogen) 67 mg/dL (8.4-25.7); Calc. Creatinine Clearance 61 mL/min (70-130); Calcium 7.6 mg/dL (7.8-10.44); Carbon Dioxide 25 mmol/L (23-31); Chloride 116 mmol/L (98-107); Estimated GFR-MDRD 65; Glucose 169 mg/dL (80-115); Potassium 4.4 mmol/L (3.5-5.1); Sodium 147 mmol/L (136-145)
[2019-03-03 07:25] LABS: Base Excess (BEa) -0.8 mEq/L (-2.0 to +3.0); CO2 Tension 40.2 mmHg (35.0-45.0); Calcium, Ionized 1.09 mmol/L (1.12-1.30); Carboxyhemoglobin (COHb) 0.7 gm% (0.0-3.0); Hemoglobin (Hb) 11.6 g/dL (14.0-18.0); O2 Tension (PaO2) 80.9 mmHg (> 80.0); Potassium - ABG Lab 4.29 mmol/L (3.70-5.30); pH, Arterial 7.39 (7.35-7.45)
[2019-03-03 07:43] LABS: Puncture Site RRAD
[2019-03-03] MEDS: methylPREDNISolone Sod Succ 40 MG VIAL IVP SCH ×2 (08:40→21:03)
[2019-03-03] MEDS: Enoxaparin Sodium 40 MG/0.4 ML SYRINGE SC SCH (08:40)
[2019-03-03] MEDS: Famotidine 20 MG TAB PO SCH ×2 (08:41→21:03)
--- NOTE | 2019-03-03 09:31 | PRG ---
DATE OF SERVICE: 03/03/2019 SUBJECTIVE: Paulino Beckford intubated on the vent, fentanyl and Diprivan. X-ray still looks unchanged right hilar mass. OBJECTIVE: VITAL SIGNS: Temperature 97, pulse 93, blood pressure 130/80, respiratory rate 18. CHEST: Decreased breath sounds. Minimal wheezing, right greater than left. CARDIAC: Sinus tach. ABDOMEN: Soft. LABORATORY DATA: A pO2 is 80, pCO2 is 40, pH is 7.39. White count is unremarkable. H and H unremarkable. Platelet count is low 87. Lytes are normal. BUN is 67. ASSESSMENT: Respiratory failure, chronic obstructive pulmonary disease, and lung cancer, status post chemotherapy. PLAN: Continue supportive care. Nutrition and PT. He is not weanable at this stage. One-half hour of critical care time. Job ID: [id number]
--- NOTE | 2019-03-03 10:12 | PDOC.HOSPP ---
- Subjective Encounter Date: 03/03/19 Encounter Time: 10:10 Subjective: Mr. Beckford was seen today in follow-up of respiratory failure. He is intubated and sedated. No problems voiced by staff. - Objective Vital Signs & Weight: Vital Signs (12 hours) Temp Pulse Resp BP Pulse Ox 03/03/19 10:00 17 03/03/19 08:00 14 03/03/19 07:29 93 L 03/03/19 07:20 99 03/03/19 07:01 91 16 100 03/03/19 07:00 97.6 F 03/03/19 06:00 19 03/03/19 04:00 98.9 F 15 03/03/19 02:46 93 03/03/19 02:00 21 H 03/03/19 01:31 93 119/76 03/03/19 00:00 98.6 F 21 H 03/02/19 22:32 95 Weight Admit Weight 145 lb 15.136 oz Weight 145 lb Most Recent Monitor Data Heart Rate from ECG 97 NIBP 130/74 NIBP BP-Mean 92 Respiration from ECG 14 SpO2 96 I&O: 03/02/19 03/03/19 03/04/19 06:59 06:59 06:59 Intake Total 1256.9 1783 Output Total 2375 4845 155 Balance -1118.1 -672 -155 Result Diagrams: 03/03/19 04:24 03/03/19 06:40 Hospitalist ROS - Medication Medications: Active Medications Generic Name Dose Route Start Last Admin Trade Name Freq PRN Reason Stop Dose Admin Albuterol/Ipratropium 3 ml 02/21/19 22:30 03/03/19 07:01 Duoneb NEB 3 ml [id number] CHELSEA Administration Atorvastatin Calcium 80 mg 02/22/19 21:00 03/02/19 21:21 Lipitor PO 80 mg HS CHELSEA Administration Enoxaparin Sodium 40 mg 02/22/19 09:00 03/03/19 08:40 Lovenox SC 40 mg 0900 CHELSEA Administration Famotidine 20 mg 02/21/19 21:00 03/03/19 08:41 Pepcid PO 20 mg BID CHELSEA Administration Sodium Chloride 1,000 mls @ 0 mls/hr 02/22/19 14:30 03/02/19 17:20 1/2 Normal Saline IV 1,000 mls .Q0M CHELSEA Administration KVO Fentanyl Citrate 2,000 mcg/ 100 mls @ 0 mls/hr 02/24/19 15:35 03/02/19 21:16 Sodium Chloride IV 03/26/19 15:35 100 mls INF CHELSEA Administration Protocol Per Protocol Palonosetron 0.25 mg/ Sodium 55 mls @ 165 mls/hr 02/27/19 11:30 02/27/19 14: 09 Chloride IVPB 55 mls WILLCALL CHELSEA Administration Dexamethasone Sodium Phosphate 51 mls @ 153 mls/hr 02/27/19 11:30 02/27/19 14 :09 10 mg/ Sodium Chloride IVPB 51 mls WILLCALL CHELSEA Administration Carboplatin 338.4 mg/ Sodium 283.84 mls @ 378.453 mls/hr 02/27/19 11:30 02/27 15:19 Chloride IVPB 283.84 mls WILLCALL CHELSEA Administration Etoposide 186 mg/ Sodium 509.3 mls @ 509.3 mls/hr 02/27/19 11:30 03/01/19 12: 13 Chloride IVPB 509.3 mls WILLCALL CHELSEA Administration Levofloxacin 750 mg/ Device 150 mls @ 100 mls/hr 03/01/19 09:00 03/03/19 08: 40 IVPB 150 mls Q2D@0900 CHELSEA Administration Lorazepam 2 mg 02/24/19 15:35 02/27/19 17:07 Ativan SLOW IVP 03/26/19 15:35 2 mg Q1H PRN Administration Breakthrough agitation Methylprednisolone Sodium Succinate 40 mg 02/23/19 21:00 03/03/19 08:40 Solu-Medrol IVP 40 mg Q12HR CHELSEA Administration Metoclopramide HCl 10 mg 02/28/19 07:45 03/03/19 08:43 Reglan IVP 10 mg Q6H CHELSEA Administration Ondansetron HCl 8 mg 03/01/19 07:53 03/01/19 13:41 Zofran IVP 8 mg Q6H PRN Administration Nausea/Vomiting Promethazine HCl 25 mg 02/23/19 15:25 02/23/19 22:09 Phenergan IM/IV 25 mg Q6H PRN Administration Nausea/Vomiting Propofol 1,000 mg 02/24/19 15:35 03/03/19 04:44 Diprivan IV 03/26/19 15:35 1,000 mg INF PRN Administration TO ACHIEVE GOAL RASS Protocol Sodium Chloride 10 ml 02/22/19 09:00 03/03/19 09:49 Flush - Normal Saline IVF 10 ml Q12HR CHELSEA Administration Sterile Water 1 ml 02/21/19 21:56 03/02/19 21:22 Bacteriostatic Water FS 1 ml PRN PRN Administration RECONSTITUTION - Exam Eye: PERRL Heart: RRR, no gallops, no rubs, normal peripheral pulses Respiratory: CTAB (except for some coarse breath sounds), no wheezes, no rales, no ronchi, normal chest expansion Gastrointestinal: soft, non-tender, non-distended, normal bowel sounds, no palpable masses, no hepatomegaly Extremities: no cyanosis, no clubbing, no edema Hosp A/P (1) Acute respiratory failure with hypoxia Code(s): J96.01 - ACUTE RESPIRATORY FAILURE WITH HYPOXIA Status: Acute (2) Lung mass Code(s): R91.8 - OTHER NONSPECIFIC ABNORMAL FINDING OF LUNG FIELD Status: Acute (3) Small cell carcinoma of right lung Code(s): C34.91 - MALIGNANT NEOPLASM OF UNSP PART OF RIGHT BRONCHUS OR LUNG Status: Chronic (4) CAD (coronary artery disease) Code(s): I25.10 - ATHSCL HEART DISEASE OF [place] CORONARY ARTERY W/O ANG PCTRS Status: Chronic Qualifiers: Coronary Disease-Associated Artery/Lesion type: [place] artery [place] vs. transplanted heart: [place] heart Associated angina: without angina Qualified Code(s): I25.10 - Atherosclerotic heart disease of [place] coronary artery without angina pectoris (5) HTN (hypertension) Code(s): I10 - ESSENTIAL (PRIMARY) HYPERTENSION Status: Chronic Qualifiers: Hypertension type: essential hypertension Qualified Code(s): I10 - Essential (primary) hypertension - Plan * Acute respiratory failure- due to advanced cancer with endobronchial lesions- continue chemotherapy, and ventilator support * HTN- blood pressure is stable * Nutritional support - continue tube feeding * Continue supportive care * Continue GI and DVT Prophylaxis
--- NOTE | 2019-03-03 10:48 | RAD ---
RADIOGRAPH CHEST 1 VIEW: DATE: 03/03/2019 TIME: 4:32 AM HISTORY: 63-year-old male with "pneumonia" COMPARISON: 03/02/2019 FINDINGS: Slight interval increase in volume of right pleural effusion. No other interval change. Left lung remains relatively clear. No cardiomegaly. IMPRESSION: 1) apparent slight interval increase in volume of right pleural effusion. 2) no other interval change. 3) right mediastinal-hilar malignant neoplastic tumor mass. 4) endotracheal tube and esophagogastric tube remain.
[2019-03-03] MEDS: Morphine 2 MG/ML SYRINGE SLOW IVP PRN (12:52)
[2019-03-03] MEDS: fentaNYL Citrate/PF 2,000 MCG in Sodium Chloride 0.9% 60 ML IV SCH (17:10)
[2019-03-03] MEDS: Ondansetron PF 4 MG/2 ML Vial IVP PRN (19:46)
[2019-03-03] MEDS: Bacteriostatic Water 30 ML VIAL FS PRN (21:03)
[2019-03-03] MEDS: Atorvastatin Calcium 40 MG TAB PO SCH (21:03)
[2019-03-03] MEDS: Sodium Chloride 0.45% 1,000 ML IV SCH (22:11)
[2019-03-04] MEDS: Metoclopramide HCl 10 MG/2 ML VIAL IVP SCH ×4 (01:27→20:24)
[2019-03-04 04:56] LABS: Anion Gap 11 mmol/L (10-20); BUN (Urea Nitrogen) 64 mg/dL (8.4-25.7); Calc. Creatinine Clearance 60 mL/min (70-130); Calcium 7.8 mg/dL (7.8-10.44); Carbon Dioxide 26 mmol/L (23-31); Chloride 118 mmol/L (98-107); Estimated GFR-MDRD 64; Glucose 174 mg/dL (80-115); Potassium 4.5 mmol/L (3.5-5.1); Sodium 150 mmol/L (136-145)
[2019-03-04 05:00] LABS: Band 5 % (5-11); Hemoglobin 10.6 g/dL (14.0-18.0); Hypochromia SLIGHT = 6-15 cells (100X) (0-5/hpf); Lymphocytes 18 % (21-51); MDiff Complete? YES; Mean Corpuscular HGB CONC 33.8 g/dL (32.0-36.0); Mean Corpuscular Hemoglobin 31.9 pg (27.0-31.0); Mean Corpuscular Volume 94.4 fL (78.0-98.0); Mean Platelet Volume 7.7 fL (7.4-10.4); Monocytes 2 % (0-10); Neutrophil 75 % (42-75); Platelet Count 68 thou/uL (130-400); Platelet Morphology Comment Appears Decreased; RBC Distribution Width 13.9 % (11.5-14.5); Red Blood Cell (RBC) Count 3.32 mill/uL (4.70-6.10); White Blood Cell (WBC) Count 2.7 thou/uL (4.8-10.8)
[2019-03-04] MEDS: Propofol 1,000 MG/100 ML VIAL IV PRN ×3 (06:04→21:05)
[2019-03-04 07:09] LABS: Actual Bicarbonate (HCO3a) 25.1 mEq/L (22-28); Base Excess (BEa) 1.3 mEq/L (-2.0 to +3.0); CO2 Tension 36.5 mmHg (35.0-45.0); Calcium, Ionized 1.11 mmol/L (1.12-1.30); Carboxyhemoglobin (COHb) 0.8 gm% (0.0-3.0); Hemoglobin (Hb) 11.1 g/dL (14.0-18.0); O2 Tension (PaO2) 74.4 mmHg (> 80.0); Potassium - ABG Lab 4.24 mmol/L (3.70-5.30); pH, Arterial 7.46 (7.35-7.45)
[2019-03-04 07:10] LABS: ALV-art Gradient 93.875 (0-20); Puncture Site RRA
[2019-03-04] MEDS: Dextrose 5% in Water 1,000 ML IV SCH ×2 (08:29→21:05)
[2019-03-04] MEDS: Famotidine 20 MG TAB PO SCH (08:30)
[2019-03-04] MEDS: methylPREDNISolone Sod Succ 40 MG VIAL IVP SCH ×2 (08:31→20:24)
--- NOTE | 2019-03-04 08:45 | PRG ---
DATE OF SERVICE: 03/04/2019 TIME SPENT: 35 minutes of critical care time. SUBJECTIVE: The patient remains intubated on mechanical ventilation. There has been no acute changes over the weekend. OBJECTIVE: VITAL SIGNS: His temperature is 98.8 with a T-max of 100.0, pulse is 94, blood pressure 102/75, and respiratory rate 16. Intake for 24 hours 1873, output 1200. HEENT: Unremarkable. NECK: No adenopathy or JVD. LUNGS: Poor air movement on the right, clear on the left. CARDIAC: S1 and S2. Slightly tachycardic. ABDOMEN: Soft and nontender to palpation. EXTREMITIES: Severe muscle wasting. Decrease movement to voice. LABORATORY DATA: PH of 7.46, pCO2 of 36, pO2 of 74 on SIMV rate 14, inspiratory pressure 26, and FiO2 of 30%. White blood cell count 2.7, hematocrit 31.3, and platelet count 68. Sodium of 150, potassium 4.5, chloride 118, CO2 of 26, BUN 64, creatinine 1.2, and glucose 174. IMAGING DATA: Chest x-ray shows no significant change. ASSESSMENT: 1. Small cell lung cancer. 2. Respiratory failure, requiring mechanical ventilation with high-grade obstruction in both mainstem bronchi. 3. Developing thrombocytopenia and leukopenia, likely from the effects of chemotherapy. 4. Hypernatremia. PLAN: 1. I will go ahead and start him on some free water. 2. Hold the enoxaparin. 3. Cannot proceed with extubation until we see significant reduction in size of the tumor burden. If not better by the end of this week, we may have to discuss tracheostomy placement. Job ID: [id number]
--- NOTE | 2019-03-04 10:05 | RAD ---
FRONTAL RADIOGRAPH CHEST: Date: 03/04/19 COMPARISON: 03/03/19. HISTORY: Pneumonia. FINDINGS: There is a prominent soft tissue mass in the right suprahilar region/right paratracheal region, uncha nged. Endotracheal tube and nasogastric tube are in stable position. Left lung is clear. There is hazy increased density in the right perihilar region and right lung base with blunting of ri ght costophrenic angle suggesting associated right pleural fluid. There is also partial obscuration o f the right hemidiaphragm. Findings are unchanged when compared to the prior exam. IMPRESSION: Stable appearance of the chest as detailed above. Mass lesion in the right perihilar/suprahilar regio n suggests underlying malignancy. Hazy density in the right lung base consistent with a combination o f nonspecific pleural and parenchymal opacity. Continued follow-up advised. POS: GAYE
[2019-03-04] MEDS: fentaNYL Citrate/PF 2,000 MCG in Sodium Chloride 0.9% 60 ML IV SCH (13:59)
--- NOTE | 2019-03-04 14:34 | PDOC.HOSPP ---
- Subjective Encounter Date: 03/04/19 Encounter Time: 14:32 Subjective: Mr. Beckford was seen today in follow-up of respiratory failure due to small cell lung cancer. He is intubated. No change overnight - Objective Vital Signs & Weight: Vital Signs (12 hours) Temp Pulse Resp Pulse Ox 03/04/19 14:28 93 14 100 03/04/19 14:00 14 03/04/19 12:49 93 03/04/19 12:00 98.3 F 14 03/04/19 10:52 94 03/04/19 10:00 14 03/04/19 08:00 14 03/04/19 07:06 94 03/04/19 07:04 99 03/04/19 07:00 98.8 F 03/04/19 06:00 14 03/04/19 04:00 99.7 F H 14 03/04/19 03:55 93 Weight Admit Weight 145 lb 15.136 oz Weight 145 lb Most Recent Monitor Data Heart Rate from ECG 96 NIBP 134/86 NIBP BP-Mean 96 Respiration from ECG 19 SpO2 100 I&O: 03/03/19 03/04/19 03/05/19 06:59 06:59 06:59 Intake Total 1783 1873 120 Output Total 2455 1200 735 Balance -672 673 -615 Result Diagrams: 03/04/19 04:05 03/04/19 04:05 Hospitalist ROS - Medication Medications: Active Medications Generic Name Dose Route Start Last Admin Trade Name Freq PRN Reason Stop Dose Admin Albuterol/Ipratropium 3 ml 02/21/19 22:30 03/04/19 14:28 Duoneb NEB 3 ml [id number] CHELSEA Administration Atorvastatin Calcium 80 mg 02/22/19 21:00 03/03/19 21:03 Lipitor PO Not Given HS CHELSEA Sodium Chloride 1,000 mls @ 0 mls/hr 02/22/19 14:30 03/03/19 22:11 1/2 Normal Saline IV 1,000 mls .Q0M CHELSEA Administration KVO Fentanyl Citrate 2,000 mcg/ 100 mls @ 0 mls/hr 02/24/19 15:35 03/04/19 13:59 Sodium Chloride IV 03/26/19 15:35 100 mls INF CHELSEA Administration Protocol Per Protocol Palonosetron 0.25 mg/ Sodium 55 mls @ 165 mls/hr 02/27/19 11:30 02/27/19 14: 09 Chloride IVPB 55 mls WILLCALL CHELSEA Administration Dexamethasone Sodium Phosphate 51 mls @ 153 mls/hr 02/27/19 11:30 02/27/19 14 :09 10 mg/ Sodium Chloride IVPB 51 mls WILLCALL CHELSEA Administration Carboplatin 338.4 mg/ Sodium 283.84 mls @ 378.453 mls/hr 02/27/19 11:30 02/27 15:19 Chloride IVPB 283.84 mls WILLCALL CHELSEA Administration Etoposide 186 mg/ Sodium 509.3 mls @ 509.3 mls/hr 02/27/19 11:30 03/01/19 12: 13 Chloride IVPB 509.3 mls WILLCALL CHELSEA Administration Levofloxacin 750 mg/ Device 150 mls @ 100 mls/hr 03/01/19 09:00 03/03/19 08: 40 IVPB 150 mls Q2D@0900 CHELSEA Administration Dextrose/Water 1,000 mls @ 75 mls/hr 03/04/19 08:00 03/04/19 08:29 D5w IV 1,000 mls .[id number] CHELSEA Administration Lorazepam 2 mg 02/24/19 15:35 02/27/19 17:07 Ativan SLOW IVP 03/26/19 15:35 2 mg Q1H PRN Administration Breakthrough agitation Methylprednisolone Sodium Succinate 40 mg 02/23/19 21:00 03/04/19 08:31 Solu-Medrol IVP 40 mg Q12HR CHELSEA Administration Metoclopramide HCl 10 mg 02/28/19 07:45 03/04/19 13:21 Reglan IVP 10 mg Q6H CHELSEA Administration Morphine Sulfate 2 mg 02/24/19 15:35 03/03/19 12:52 Morphine SLOW IVP 03/26/19 15:35 2 mg Q1H PRN Administration BREAKTHROUGH PAIN/Agitation Ondansetron HCl 8 mg 03/01/19 07:53 03/03/19 19:46 Zofran IVP 8 mg Q6H PRN Administration Nausea/Vomiting Promethazine HCl 25 mg 02/23/19 15:25 02/23/19 22:09 Phenergan IM/IV 25 mg Q6H PRN Administration Nausea/Vomiting Propofol 1,000 mg 02/24/19 15:35 03/04/19 13:18 Diprivan IV 03/26/19 15:35 1,000 mg INF PRN Administration TO ACHIEVE GOAL RASS Protocol Sodium Chloride 10 ml 02/22/19 09:00 03/04/19 08:31 Flush - Normal Saline IVF 10 ml Q12HR CHELSEA Administration Sterile Water 1 ml 02/21/19 21:56 03/03/19 21:03 Bacteriostatic Water FS 1 ml PRN PRN Administration RECONSTITUTION - Exam Eye: PERRL Heart: RRR, no murmur, no gallops, no rubs, normal peripheral pulses Respiratory: CTAB (coarse breath sounds bilaterally), no wheezes, no rales, no ronchi, normal chest expansion Gastrointestinal: soft, non-tender, non-distended, normal bowel sounds, no palpable masses, no hepatomegaly, no splenomegaly Extremities: 1+ LE edema (edema in both upper extremities) Hosp A/P (1) Acute respiratory failure with hypoxia Code(s): J96.01 - ACUTE RESPIRATORY FAILURE WITH HYPOXIA Status: Acute (2) Lung mass Code(s): R91.8 - OTHER NONSPECIFIC ABNORMAL FINDING OF LUNG FIELD Status: Acute (3) Small cell carcinoma of right lung Code(s): C34.91 - MALIGNANT NEOPLASM OF UNSP PART OF RIGHT BRONCHUS OR LUNG Status: Chronic (4) CAD (coronary artery disease) Code(s): I25.10 - ATHSCL HEART DISEASE OF [place] CORONARY ARTERY W/O ANG PCTRS Status: Chronic Qualifiers: Coronary Disease-Associated Artery/Lesion type: [place] artery [place] vs. transplanted heart: [place] heart Associated angina: without angina Qualified Code(s): I25.10 - Atherosclerotic heart disease of [place] coronary artery without angina pectoris (5) HTN (hypertension) Code(s): I10 - ESSENTIAL (PRIMARY) HYPERTENSION Status: Chronic Qualifiers: Hypertension type: essential hypertension Qualified Code(s): I10 - Essential (primary) hypertension - Plan * Acute respiratory failure- due to advanced cancer with endobronchial lesions- continue chemotherapy, and ventilator support * Hypernatremia- agree with change of fluids to D5W * Thrombocytopenia- will change Pepcid to Protonix, and agree with discontinuation of Lovenox * HTN- blood pressure is stable * Nutritional support - continue tube feeding * Continue supportive care
--- NOTE | 2019-03-04 14:35 | PDOC.MOPN ---
Interval History: Remains on vent, sedated. VSS - Vital Signs Vital Signs: Vital Signs (12 hours) Temp Pulse Resp Pulse Ox 03/04/19 14:28 93 14 100 03/04/19 14:00 14 03/04/19 12:49 93 03/04/19 12:00 98.3 F 14 03/04/19 10:52 94 03/04/19 10:00 14 03/04/19 08:00 14 03/04/19 07:06 94 03/04/19 07:04 99 03/04/19 07:00 98.8 F 03/04/19 06:00 14 03/04/19 04:00 99.7 F H 14 03/04/19 03:55 93 Weight Admit Weight 145 lb 15.136 oz Weight 145 lb Most Recent Monitor Data Heart Rate from ECG 96 NIBP 134/86 NIBP BP-Mean 96 Respiration from ECG 19 SpO2 100 - Physical Exam General: No acute distress Lungs: Other (crackles) Cardiovascular: Regular rate Abdomen: Normal bowel sounds Extremities: Other Skin: No rashes, No breakdown, No significant lesion Psych/Mental Status: Other - Labs Result Diagrams: 03/04/19 04:05 03/04/19 04:05 Lab results: Laboratory Results - last 24 hr 03/04/19 07:02: Specimen Type ARTERIAL, Puncture Site RRA, Bicarbonate Actual 25.1, ABG pH 7.46 H, ABG pCO2 36.5, ABG pO2 74.4, ABG O2 Sat Calc/Jamila 95.1, ABG O2 Content 14.8 L, ABG Base Excess 1.3, ABG Hematocrit 33.0 L, ABG Hemoglobin 11.1 L, ABG Oxyhemoglobin 94.1, ABG Carboxyhemoglobin 0.8, ABG Methemoglobin 0.30, ABG Deoxyhemoglobin 4.8 H, A-a O2 Gradient 93.875 H, Ionized Calcium 1.11 L, Mode of Support SIMV/PC, % Minute Volume 9.4, Mechanical Rate 14, Inspired O2 30, Inspiratory Time 0.70, Tidal Volume 587, Peak Inspir Pressure 26, Pressure Support 10, PEEP or CPAP 5.0, Sodium 150 H, Potassium 4.24, Chloride 118 H 03/04/19 04:05: WBC 2.7 L, RBC 3.32 L, Hgb 10.6 L, Hct 31.3 L, MCV 94.4, MCH 31.9 H, MCHC 33.8, RDW 13.9, Plt Count 68 L, MPV 7.7, Neutrophils % (Manual) 75 , Band Neuts % (Manual) 5, Lymphocytes % (Manual) 18 L, Monocytes % (Manual) 2, Hypochromia SLIGHT = 6-15 cells, Plt Morphology Comment Appears Decreased L 03/04/19 04:05: Sodium 150 H, Potassium 4.5, Chloride 118 H, Carbon Dioxide 26, Anion Gap 11, BUN 64 H, Creatinine 1.15, Estimated GFR (MDRD) 64, Glucose 174 H , Calcium 7.8 Status: lab reviewed by me A/P - Problem (1) Acute respiratory failure with hypoxia Current Visit: Yes Code(s): J96.01 - ACUTE RESPIRATORY FAILURE WITH HYPOXIA Status: Acute (2) Lung mass Current Visit: Yes Code(s): R91.8 - OTHER NONSPECIFIC ABNORMAL FINDING OF LUNG FIELD Status: Acute - Plan Plan: Continue supportive measures. Hopefully, mass will decrease in size enough to extubate patient safely. Expect neutropenia/thrombocytopenia for the next several days.
[2019-03-04] MEDS: Atorvastatin Calcium 40 MG TAB PO SCH (20:24)
[2019-03-05] MEDS: Metoclopramide HCl 10 MG/2 ML VIAL IVP SCH ×4 (02:02→20:03)
[2019-03-05 04:48] LABS: Anion Gap 10 mmol/L (10-20); BUN (Urea Nitrogen) 58 mg/dL (8.4-25.7); Calc. Creatinine Clearance 67 mL/min (70-130); Calcium 7.9 mg/dL (7.8-10.44); Carbon Dioxide 24 mmol/L (23-31); Chloride 116 mmol/L (98-107); Estimated GFR-MDRD 72; Glucose 230 mg/dL (80-115); Potassium 4.1 mmol/L (3.5-5.1); Sodium 146 mmol/L (136-145)
[2019-03-05 04:50] LABS: Lymphocytes 48 % (21-51); MDiff Complete? YES; Mean Corpuscular HGB CONC 34.1 g/dL (32.0-36.0); Mean Corpuscular Hemoglobin 32.1 pg (27.0-31.0); Mean Platelet Volume 7.9 fL (7.4-10.4); Monocytes 2 % (0-10); Neutrophil 50 % (42-75); Platelet Count 58 thou/uL (130-400); Platelet Morphology Comment Appears Decreased; RBC Distribution Width 13.7 % (11.5-14.5); Red Blood Cell (RBC) Count 3.13 mill/uL (4.70-6.10)
[2019-03-05] MEDS: Propofol 1,000 MG/100 ML VIAL IV PRN ×3 (05:26→22:30)
[2019-03-05 06:59] LABS: Actual Bicarbonate (HCO3a) 24.6 mEq/L (22-28); Base Excess (BEa) 1.1 mEq/L (-2.0 to +3.0); Calcium, Ionized 1.15 mmol/L (1.12-1.30); Carboxyhemoglobin (COHb) 0.9 gm% (0.0-3.0); O2 Tension (PaO2) 80.8 mmHg (> 80.0); Potassium - ABG Lab 3.98 mmol/L (3.70-5.30); pH, Arterial 7.45 (7.35-7.45)
[2019-03-05 07:01] LABS: Puncture Site RRA
[2019-03-05] MEDS ORDERED: Artificial Tears 18 DROP/0.9 ML EA EYE PRN (08:04)
--- NOTE | 2019-03-05 08:26 | PRG ---
DATE OF SERVICE: 03/05/2019 TIME SPENT: 35 minutes of critical care time. SUBJECTIVE: The patient remains intubated on mechanical ventilation. He has had no acute changes overnight. OBJECTIVE: VITAL SIGNS: His temperature is 98.2, pulse 102, and blood pressure 150/91. Intake 1873, output 1200. HEENT: Unremarkable. NECK: No adenopathy or JVD. CHEST: Coarse rhonchi bilaterally. CARDIOVASCULAR: S1 and S2. Slightly tachycardic. ABDOMEN: Soft. EXTREMITIES: Severe muscle wasting. LABORATORY DATA: White blood cell count 1.0, hematocrit 29.5, and platelet count 58, absolute neutrophil count is probably about 500. PH of 7.45, pCO2 of 36, pO2 of 80 on SIMV pressure control rate 14, pressure 20, FiO2 of 30%. Sodium 146, potassium 4.1, chloride 116, CO2 of 24, BUN 58, creatinine 1.0, and glucose 230. ASSESSMENT: 1. Acute respiratory failure, requiring mechanical ventilation. 2. Small cell lung cancer, extensive stage. 3. Developing leukopenia, neutropenia, and thrombocytopenia from the effects of chemotherapy. 4. Improved hyponatremia after institution of D5W yesterday. PLAN: 1. I am going to try him on spontaneous breathing mode today, although I have no confidence that he would do well extubated based on severe neuromuscular weakness. I will also try to get the nursing staff to lower the amount of propofol that he is on. He is approaching the point where he may need to be isolated for contact precautions given the neutropenia. 2. Decrease steroid dose. Job ID: [id number]
--- NOTE | 2019-03-05 08:36 | RAD ---
CHEST ONE VIEW: INDICATIONS: History of pneumonia. COMPARISON: 03/04/2019 FINDINGS: There is worsening opacity within the right lower lobe. Large right paramediastinal mass is stable. E ndotracheal tube and gastric catheter are unchanged. Pulmonary vascular congestion of the right lung appears worsened. Left lung remains clear. IMPRESSION: Worsening pulmonary vascular congestion of the right lung with worsening right infrahilar air space o pacity. There is a small right pleural effusion that is relatively stable. Right perihilar mass persi sts. Findings may reflect worsening asymmetric edema of the right lung. Worsening pneumonia of the ri ght lung is not entirely excluded. Continued followup is recommended. POS: [facility]
[2019-03-05] MEDS: Pantoprazole 40 MG VIAL IVP SCH (08:49)
[2019-03-05] MEDS: methylPREDNISolone Sod Succ 40 MG VIAL IVP SCH ×2 (08:49→20:03)
--- NOTE | 2019-03-05 10:26 | PDOC.HOSPP ---
- Subjective Encounter Date: 03/05/19 Encounter Time: 10:25 Subjective: Mr. Beckford was seen today in follow-up of respiratory failure due to advanced lung cancer. He is intubated, no problems voiced by staff. - Objective Vital Signs & Weight: Vital Signs (12 hours) Temp Pulse Resp Pulse Ox 03/05/19 08:00 13 03/05/19 07:00 99.8 F H 03/05/19 06:56 103 H 03/05/19 05:36 14 03/05/19 04:00 14 03/05/19 03:23 94 03/05/19 03:00 98.2 F 03/05/19 02:00 14 03/05/19 00:00 14 03/04/19 23:00 98.5 F 03/04/19 22:49 100 Weight Admit Weight 145 lb 15.136 oz Weight 145 lb Most Recent Monitor Data Heart Rate from ECG 112 NIBP 151/97 NIBP BP-Mean 109 Respiration from ECG 14 SpO2 100 I&O: 03/04/19 03/05/19 03/06/19 06:59 06:59 06:59 Intake Total 1873 2922 0 Output Total 1200 1800 330 Balance 673 1122 -330 Result Diagrams: 03/05/19 04:00 03/05/19 04:00 Hospitalist ROS - Medication Medications: Active Medications Generic Name Dose Route Start Last Admin Trade Name Freq PRN Reason Stop Dose Admin Albuterol/Ipratropium 3 ml 02/21/19 22:30 03/05/19 06:56 Duoneb NEB 3 ml [id number] CHELSEA Administration Atorvastatin Calcium 80 mg 02/22/19 21:00 03/04/19 20:24 Lipitor PO 80 mg HS CHELSEA Administration Sodium Chloride 1,000 mls @ 0 mls/hr 02/22/19 14:30 03/03/19 22:11 1/2 Normal Saline IV 1,000 mls .Q0M CHELSEA Administration KVO Fentanyl Citrate 2,000 mcg/ 100 mls @ 0 mls/hr 02/24/19 15:35 03/04/19 13:59 Sodium Chloride IV 03/26/19 15:35 100 mls INF CHELSEA Administration Protocol Per Protocol Palonosetron 0.25 mg/ Sodium 55 mls @ 165 mls/hr 02/27/19 11:30 02/27/19 14: 09 Chloride IVPB 55 mls WILLCALL CHELSEA Administration Dexamethasone Sodium Phosphate 51 mls @ 153 mls/hr 02/27/19 11:30 02/27/19 14 :09 10 mg/ Sodium Chloride IVPB 51 mls WILLCALL CHELSEA Administration Carboplatin 338.4 mg/ Sodium 283.84 mls @ 378.453 mls/hr 02/27/19 11:30 02/27 15:19 Chloride IVPB 283.84 mls WILLCALL CHELSEA Administration Etoposide 186 mg/ Sodium 509.3 mls @ 509.3 mls/hr 02/27/19 11:30 03/01/19 12: 13 Chloride IVPB 509.3 mls WILLCALL CHELSEA Administration Levofloxacin 750 mg/ Device 150 mls @ 100 mls/hr 03/01/19 09:00 03/05/19 08: 50 IVPB 150 mls Q2D@0900 CHELSEA Administration Dextrose/Water 1,000 mls @ 75 mls/hr 03/04/19 08:00 03/04/19 21:05 D5w IV 1,000 mls .[id number] CHELSEA Administration Lorazepam 2 mg 02/24/19 15:35 02/27/19 17:07 Ativan SLOW IVP 03/26/19 15:35 2 mg Q1H PRN Administration Breakthrough agitation Methylprednisolone Sodium Succinate 20 mg 03/05/19 08:05 03/05/19 08:49 Solu-Medrol IVP 20 mg Q12HR CHELSEA Administration Metoclopramide HCl 10 mg 02/28/19 07:45 03/05/19 08:49 Reglan IVP 10 mg Q6H CHELSEA Administration Morphine Sulfate 2 mg 02/24/19 15:35 03/03/19 12:52 Morphine SLOW IVP 03/26/19 15:35 2 mg Q1H PRN Administration BREAKTHROUGH PAIN/Agitation Ondansetron HCl 8 mg 03/01/19 07:53 03/03/19 19:46 Zofran IVP 8 mg Q6H PRN Administration Nausea/Vomiting Pantoprazole Sodium 40 mg 03/05/19 09:00 03/05/19 08:49 Protonix IVP 40 mg DAILY CHELSEA Administration Promethazine HCl 25 mg 02/23/19 15:25 02/23/19 22:09 Phenergan IM/IV 25 mg Q6H PRN Administration Nausea/Vomiting Propofol 1,000 mg 02/24/19 15:35 03/05/19 08:49 Diprivan IV 03/26/19 15:35 1,000 mg INF PRN Administration TO ACHIEVE GOAL RASS Protocol Sodium Chloride 10 ml 02/22/19 09:00 03/04/19 20:24 Flush - Normal Saline IVF 10 ml Q12HR CHELSEA Administration Sterile Water 1 ml 02/21/19 21:56 03/03/19 21:03 Bacteriostatic Water FS 1 ml PRN PRN Administration RECONSTITUTION - Exam Eye: PERRL Heart: RRR, no murmur, no gallops, no rubs, normal peripheral pulses Respiratory: CTAB, no wheezes, no rales, no ronchi, normal chest expansion, no tachypnea, normal percussion Gastrointestinal: soft, non-tender, non-distended, normal bowel sounds, no palpable masses, no hepatomegaly Extremities: no cyanosis, no clubbing, no edema Hosp A/P (1) Acute respiratory failure with hypoxia Code(s): J96.01 - ACUTE RESPIRATORY FAILURE WITH HYPOXIA Status: Acute (2) Lung mass Code(s): R91.8 - OTHER NONSPECIFIC ABNORMAL FINDING OF LUNG FIELD Status: Acute (3) Small cell carcinoma of right lung Code(s): C34.91 - MALIGNANT NEOPLASM OF UNSP PART OF RIGHT BRONCHUS OR LUNG Status: Chronic (4) CAD (coronary artery disease) Code(s): I25.10 - ATHSCL HEART DISEASE OF [place] CORONARY ARTERY W/O ANG PCTRS Status: Chronic Qualifiers: Coronary Disease-Associated Artery/Lesion type: [place] artery [place] vs. transplanted heart: [place] heart Associated angina: without angina Qualified Code(s): I25.10 - Atherosclerotic heart disease of [place] coronary artery without angina pectoris (5) HTN (hypertension) Code(s): I10 - ESSENTIAL (PRIMARY) HYPERTENSION Status: Chronic Qualifiers: Hypertension type: essential hypertension Qualified Code(s): I10 - Essential (primary) hypertension - Plan * Acute respiratory failure- due to advanced cancer continue chemotherapy * Pancytopenia- due to chemotherapy- * Hypernatremia- improved- continue D5W * HTN- blood pressure is stable * Nutritional support - continue tube feeding * Continue supportive care
[2019-03-05] MEDS: fentaNYL Citrate/PF 2,000 MCG in Sodium Chloride 0.9% 60 ML IV SCH (10:39)
[2019-03-05] MEDS: Dextrose 5% in Water 1,000 ML IV SCH (11:42)
--- NOTE | 2019-03-05 16:43 | PDOC.MOPN ---
Interval History: increased diarrhea per nurse - Vital Signs Vital Signs: Vital Signs (12 hours) Temp Pulse Resp BP Pulse Ox 03/05/19 15:30 114 H 112/74 03/05/19 14:02 119 H 03/05/19 14:00 13 03/05/19 12:00 99.2 F 12 03/05/19 10:32 110 H 147/92 H 03/05/19 10:00 12 03/05/19 08:00 13 95 03/05/19 07:00 99.8 F H 03/05/19 06:56 103 H 03/05/19 05:36 14 Weight Admit Weight 145 lb 15.136 oz Weight 145 lb Most Recent Monitor Data Heart Rate from ECG 124 NIBP 112/74 NIBP BP-Mean 84 Respiration from ECG 16 SpO2 96 - Physical Exam General: No acute distress Cardiovascular: Regular rate Abdomen: Normal bowel sounds Skin: No breakdown Psych/Mental Status: Other (sedated/intubated) - Labs Result Diagrams: 03/05/19 04:00 03/05/19 04:00 Lab results: Laboratory Results - last 24 hr 03/05/19 06:50: Specimen Type ARTERIAL, Puncture Site RRA, Bicarbonate Actual 24.6, ABG pH 7.45, ABG pCO2 36.0, ABG pO2 80.8 H, ABG O2 Sat Calc/Jamila 96.2, ABG O2 Content 21.4 H, ABG Base Excess 1.1, ABG Hematocrit 47.0, ABG Hemoglobin 16.0, ABG Oxyhemoglobin 95.3, ABG Carboxyhemoglobin 0.9, ABG Methemoglobin 0.00 L, ABG Deoxyhemoglobin 3.8 H, A-a O2 Gradient 88.100 H, Ionized Calcium 1.15, Mode of Support SIMV/PC, % Minute Volume 9.4, Mechanical Rate 14, Inspired O2 30 , Inspiratory Time 0.70, Tidal Volume 696, Peak Inspir Pressure 26, Pressure Support 10, PEEP or CPAP 5.0, Sodium 149 H, Potassium 3.98, Chloride 114 H 03/05/19 04:00: WBC 1.0 L, RBC 3.13 L, Hgb 10.0 L, Hct 29.5 L, MCV 94.0, MCH 32.1 H, MCHC 34.1, RDW 13.7, Plt Count 58 L, MPV 7.9, Neutrophils % (Manual) 50 , Lymphocytes % (Manual) 48, Monocytes % (Manual) 2, Plt Morphology Comment Appears Decreased L 03/05/19 04:00: Sodium 146 H, Potassium 4.1, Chloride 116 H, Carbon Dioxide 24, Anion Gap 10, BUN 58 H, Creatinine 1.04, Estimated GFR (MDRD) 72, Glucose 230 H , Calcium 7.9 Status: lab reviewed by me A/P - Problem (1) Acute respiratory failure with hypoxia Current Visit: Yes Code(s): J96.01 - ACUTE RESPIRATORY FAILURE WITH HYPOXIA Status: Acute (2) Lung mass Current Visit: Yes Code(s): R91.8 - OTHER NONSPECIFIC ABNORMAL FINDING OF LUNG FIELD Status: Acute (3) Pancytopenia Current Visit: Yes Code(s): D61.818 - OTHER PANCYTOPENIA Status: Acute - Plan Plan: Expect pancytopenia over the next few days secondary to chemo Will start neupogen at some point.
[2019-03-05] MEDS: Acetaminophen 325 MG TAB PO PRN (20:01)
[2019-03-05] MEDS: Atorvastatin Calcium 40 MG TAB PO SCH (20:03)
[2019-03-06] MEDS: Dextrose 5% in Water 1,000 ML IV SCH (01:18)
[2019-03-06] MEDS ORDERED: Vancomycin HCl 1 GM in Premix Bag 1 BAG IVPB SCH (03:00)
[2019-03-06] MEDS: Metoclopramide HCl 10 MG/2 ML VIAL IVP SCH ×4 (03:01→21:17)
[2019-03-06] MEDS: Diltiazem HCl 125 MG, Admixture Fee 1 EACH in Sodium Chloride 0.9% 100 ML IVPB SCH ×2 (03:09→17:27)
[2019-03-06] MEDS: Cefepime 1 GM in Sodium Chloride 0.9% 100 ML IVPB SCH ×2 (03:14→15:19)
[2019-03-06] MEDS: Micafungin 100 MG in Sodium Chloride 0.9% 100 ML IVPB SCH (03:15)
[2019-03-06 04:17] LABS: Hemoglobin 9.8 g/dL (14.0-18.0); Mean Corpuscular Hemoglobin 32.3 pg (27.0-31.0); Mean Corpuscular Volume 94.1 fL (78.0-98.0); Red Blood Cell (RBC) Count 3.04 mill/uL (4.70-6.10); White Blood Cell (WBC) Count 0.4 thou/uL (4.8-10.8)
[2019-03-06 04:32] LABS: Anion Gap 15 mmol/L (10-20); BUN (Urea Nitrogen) 60 mg/dL (8.4-25.7); Calc. Creatinine Clearance 61 mL/min (70-130); Calcium 7.8 mg/dL (7.8-10.44); Carbon Dioxide 18 mmol/L (23-31); Chloride 116 mmol/L (98-107); Estimated GFR-MDRD 65; Glucose 261 mg/dL (80-115); Potassium 3.8 mmol/L (3.5-5.1); Sodium 145 mmol/L (136-145)
[2019-03-06 04:51] LABS: Mean Corpuscular HGB CONC 34.3 g/dL (32.0-36.0); Mean Platelet Volume 7.4 fL (7.4-10.4); Platelet Count 43 thou/uL (130-400); RBC Distribution Width 13.4 % (11.5-14.5)
[2019-03-06 04:52] LABS: Hypochromia SLIGHT = 6-15 cells (100X) (0-5/hpf); MDiff Complete? YES; Platelet Morphology Comment Appears Decreased
[2019-03-06] MEDS: fentaNYL Citrate/PF 2,000 MCG in Sodium Chloride 0.9% 60 ML IV SCH (06:12)
[2019-03-06 07:27] LABS: Actual Bicarbonate (HCO3a) 19.6 mEq/L (22-28); Base Excess (BEa) -3.2 mEq/L (-2.0 to +3.0); CO2 Tension 28.1 mmHg (35.0-45.0); Calcium, Ionized 1.14 mmol/L (1.12-1.30); Carboxyhemoglobin (COHb) 0.3 gm% (0.0-3.0); Hemoglobin (Hb) 10.6 g/dL (14.0-18.0); O2 Tension (PaO2) 78.2 mmHg (> 80.0); pH, Arterial 7.46 (7.35-7.45)
[2019-03-06 07:31] LABS: ALV-art Gradient 100.575 (0-20); Puncture Site RRA
[2019-03-06] MEDS: methylPREDNISolone Sod Succ 40 MG VIAL IVP SCH ×2 (08:43→21:21)
[2019-03-06] MEDS: Acetaminophen 325 MG TAB PO PRN (08:55)
[2019-03-06] MEDS: Pantoprazole 40 MG VIAL IVP SCH (08:56)
[2019-03-06] MEDS: Digoxin 0.5 MG/2 ML AMP SLOW IVP SCH ×3 (08:58→21:21)
--- NOTE | 2019-03-06 09:22 | RAD ---
PORTABLE CHEST 1 VIEW: DATE: 03/06/2019 TIME: 4:52 a.m. HISTORY: Pneumonia. COMPARISON: Comparison is made with the exam of the previous day. FINDINGS/IMPRESSION: Endotracheal and nasogastric tubes remain in place. Right-sided paratracheal mass is stable. There is interval worsening of right-sided pleural effusion. No pneumothoraces are seen. Left lung remain s clear. POS: [facility]
--- NOTE | 2019-03-06 09:23 | PRG ---
DATE OF SERVICE: 03/06/2019 35 minutes of critical time. SUBJECTIVE: The patient had a difficult night. He developed atrial fibrillation with rapid ventricular response. This has been rate controlled with diltiazem and he did convert to a sinus rhythm this morning. He has been bothered by fever as part of neutropenic sepsis. OBJECTIVE: VITAL SIGNS: Currently, his temperature is 100.7, pulse 109, blood pressure 110/76, and respiratory rate 14. GENERAL: His eyes are open. Does not follow any commands. HEENT: Remarkable for ET tube in place. NECK: No adenopathy or JVD. LUNGS: Clear anteriorly. CARDIAC: S1 and S2, tachycardic. ABDOMEN: Soft and nontender. EXTREMITIES: He has edema in his hands. LABORATORY DATA: His ABG is pending. His white blood cell count is 0.4, hemoglobin 9.8, hematocrit 28.6, and platelet count 43. Sodium 145, potassium 3.8, chloride 116, CO2 of 18, BUN 60, creatinine 1.1, and glucose 261. Chest x-ray shows layering right effusion. ASSESSMENT: 1. Neutropenic fever, now post chemotherapy. 2. Pancytopenia. 3. Acute respiratory failure, requiring mechanical ventilation. 4. Small cell lung cancer, extensive stage. 5. Renal insufficiency. PLAN: 1. I extended his antibiotic coverage last night and also add antifungal coverage. I will ask pharmacy dosed vancomycin since his kidney function is somewhat compromised. Cultures were obtained, but we have no positive results back at this point. 2. Given that his hypernatremia is better, I will go ahead and stop the D5W since this is affecting his blood sugars. 3. I have started him on digoxin in hopes of getting him off the diltiazem because I do not think his blood pressure will handle it that long. 4. I supposed to meet with family later this morning. I am proposing bronchoscopy tomorrow to take a look and see if there has been any shrinkage of tumor, so that we can move toward extubation. Job ID: [id number]
--- NOTE | 2019-03-06 10:31 | PDOC.MOPN ---
Interval History: poorly responsive - Vital Signs Vital Signs: Vital Signs (12 hours) Temp Pulse Resp BP Pulse Ox 03/06/19 10:00 14 03/06/19 08:58 106 H 03/06/19 08:00 15 100 03/06/19 07:25 111 H 98/71 03/06/19 07:08 107 H 14 99 03/06/19 07:00 101.0 F H 03/06/19 06:00 14 03/06/19 04:00 100.7 F H 14 03/06/19 02:09 144 H 99/69 03/06/19 02:00 16 03/06/19 00:00 100.9 F H 14 Weight Admit Weight 145 lb 15.136 oz Weight 145 lb Most Recent Monitor Data Heart Rate from ECG 102 NIBP 100/66 NIBP BP-Mean 77 Respiration from ECG 14 SpO2 100 - Physical Exam General: No acute distress Lungs: Other Cardiovascular: Regular rate Abdomen: Normal bowel sounds Extremities: No clubbing, No cyanosis, No edema, Normal pulses, No tenderness/ swelling Skin: No rashes, No breakdown, No significant lesion Neurological: Other (intubated) - Labs Result Diagrams: 03/06/19 04:01 03/06/19 04:01 Lab results: Laboratory Results - last 24 hr 03/06/19 07:15: Specimen Type ARTERIAL, Puncture Site RRA, Bicarbonate Actual 19.6 L, ABG pH 7.46 H, ABG pCO2 28.1 L, ABG pO2 78.2, ABG O2 Sat Calc/Jamila 95.4 , ABG O2 Content 14.2 L, ABG Base Excess -3.2 L, ABG Hematocrit 31.0 L, ABG Hemoglobin 10.6 L, ABG Oxyhemoglobin 94.8, ABG Carboxyhemoglobin 0.3, ABG Methemoglobin 0.30, ABG Deoxyhemoglobin 4.6 H, Suleman Test POSITIVE, A-a O2 Gradient 100.575 H, Ionized Calcium 1.14, Mode of Support SIMV.PCV, Mechanical Rate 14, Inspired O2 30, Inspiratory Time 0.70, Peak Inspir Pressure 20, Pressure Support 10, PEEP or CPAP 5.0, Sodium 144, Potassium 3.50 L, Chloride 113 H 03/06/19 04:01: WBC 0.4 L*, RBC 3.04 L, Hgb 9.8 L, Hct 28.6 L, MCV 94.1, MCH 32.3 H, MCHC 34.3, RDW 13.4, Plt Count 43 L, MPV 7.4, Neutrophils % (Manual) Not Reportable, Neutrophils # Not Reportable, Lymphocytes # Not Reportable, Hypochromia SLIGHT = 6-15 cells, Plt Morphology Comment Appears Decreased L 03/06/19 04:01: Sodium 145, Potassium 3.8, Chloride 116 H, Carbon Dioxide 18 L, Anion Gap 15, BUN 60 H, Creatinine 1.13, Estimated GFR (MDRD) 65, Glucose 261 H , Calcium 7.8 Status: lab reviewed by me A/P - Problem (1) Acute respiratory failure with hypoxia Current Visit: Yes Code(s): J96.01 - ACUTE RESPIRATORY FAILURE WITH HYPOXIA Status: Acute (2) Lung mass Current Visit: Yes Code(s): R91.8 - OTHER NONSPECIFIC ABNORMAL FINDING OF LUNG FIELD Status: Acute (3) Pancytopenia Current Visit: Yes Code(s): D61.818 - OTHER PANCYTOPENIA Status: Acute - Plan Plan: Small cell lung cancer C1D7 VP16/Carboplatin now with neutropenia, start neupogen poss bronch later this week supportive care
[2019-03-06] MEDS: Propofol 1,000 MG/100 ML VIAL IV PRN (12:38)
--- NOTE | 2019-03-06 13:41 | PDOC.HOSPP ---
- Subjective Encounter Date: 03/06/19 Encounter Time: 13:39 Subjective: Mr. Beckford was seen today in follow-up of respiratory failure due to small cell lung cancer. He remains intubated. - Objective Vital Signs & Weight: Vital Signs (12 hours) Temp Pulse Resp BP Pulse Ox 03/06/19 12:00 14 03/06/19 10:42 103 H 95/70 03/06/19 10:36 100 15 99 03/06/19 10:00 14 03/06/19 08:58 106 H 03/06/19 08:00 15 100 03/06/19 07:25 111 H 98/71 03/06/19 07:08 107 H 14 99 03/06/19 07:00 101.0 F H 03/06/19 06:00 14 03/06/19 04:00 100.7 F H 14 03/06/19 02:09 144 H 99/69 03/06/19 02:00 16 Weight Admit Weight 145 lb 15.136 oz Weight 145 lb Most Recent Monitor Data Heart Rate from ECG 95 NIBP 107/63 NIBP BP-Mean 77 Respiration from ECG 21 SpO2 100 I&O: 03/05/19 03/06/19 03/07/19 06:59 06:59 06:59 Intake Total 2922 3092.7 Output Total 1800 2000 445 Balance 1122 1092.7 -445 Result Diagrams: 03/06/19 04:01 03/06/19 04:01 Hospitalist ROS - Medication Medications: Active Medications Generic Name Dose Route Start Last Admin Trade Name Freq PRN Reason Stop Dose Admin Acetaminophen 650 mg 02/21/19 20:58 03/06/19 08:55 Tylenol PO 650 mg Q4H PRN Administration Headache/Fever/Mild Pain (1-3) Albuterol/Ipratropium 3 ml 02/21/19 22:30 03/06/19 10:36 Duoneb NEB 3 ml [id number] CHELSEA Administration Artificial Tears 2 drop 03/05/19 08:04 03/05/19 14:38 Tears Naturale EA EYE 2 drop Q4H PRN Administration Dry Eyes Atorvastatin Calcium 80 mg 02/22/19 21:00 03/05/19 20:03 Lipitor PO 80 mg HS CHELSEA Administration Digoxin 0.25 mg 03/06/19 08:00 03/06/19 08:58 Lanoxin SLOW IVP 03/06/19 20:01 0.25 mg Q6H CHELSEA Administration Sodium Chloride 1,000 mls @ 0 mls/hr 02/22/19 14:30 03/03/19 22:11 1/2 Normal Saline IV 1,000 mls .Q0M CHELSEA Administration KVO Fentanyl Citrate 2,000 mcg/ 100 mls @ 0 mls/hr 02/24/19 15:35 03/06/19 06:12 Sodium Chloride IV 03/26/19 15:35 100 mls INF CHELSEA Administration Protocol Per Protocol Palonosetron 0.25 mg/ Sodium 55 mls @ 165 mls/hr 02/27/19 11:30 02/27/19 14: 09 Chloride IVPB 55 mls WILLCALL CHELSEA Administration Dexamethasone Sodium Phosphate 51 mls @ 153 mls/hr 02/27/19 11:30 02/27/19 14 :09 10 mg/ Sodium Chloride IVPB 51 mls WILLCALL CHELSEA Administration Carboplatin 338.4 mg/ Sodium 283.84 mls @ 378.453 mls/hr 02/27/19 11:30 02/27 15:19 Chloride IVPB 283.84 mls WILLCALL CHELSEA Administration Etoposide 186 mg/ Sodium 509.3 mls @ 509.3 mls/hr 02/27/19 11:30 03/01/19 12: 13 Chloride IVPB 509.3 mls WILLCALL CHELSEA Administration Levofloxacin 750 mg/ Device 150 mls @ 100 mls/hr 03/01/19 09:00 03/05/19 08: 50 IVPB 150 mls Q2D@0900 CHELSEA Administration Diltiazem HCl 125 mg/ 125 mls @ 0 mls/hr 03/06/19 03:00 03/06/19 03:09 Miscellaneous Medication 1 IVPB 125 mls each/ Sodium Chloride INF CHELSEA Administration Protocol As Directed Cefepime HCl 1 gm/ Sodium 100 mls @ 200 mls/hr 03/06/19 03:00 03/06/19 03:14 Chloride IVPB 100 mls 0300,1500 CHELSEA Administration Micafungin Sodium 100 mg/ 100 mls @ 100 mls/hr 03/06/19 04:00 03/06/19 03:15 Sodium Chloride IVPB 100 mls 0400 CHELSEA Administration Lorazepam 2 mg 02/24/19 15:35 02/27/19 17:07 Ativan SLOW IVP 03/26/19 15:35 2 mg Q1H PRN Administration Breakthrough agitation Methylprednisolone Sodium Succinate 20 mg 03/05/19 08:05 03/06/19 08:43 Solu-Medrol IVP 20 mg Q12HR CHELSEA Administration Metoclopramide HCl 10 mg 02/28/19 07:45 03/06/19 08:41 Reglan IVP Not Given Q6H CHELSEA Morphine Sulfate 2 mg 02/24/19 15:35 03/03/19 12:52 Morphine SLOW IVP 03/26/19 15:35 2 mg Q1H PRN Administration BREAKTHROUGH PAIN/Agitation Ondansetron HCl 8 mg 03/01/19 07:53 03/03/19 19:46 Zofran IVP 8 mg Q6H PRN Administration Nausea/Vomiting Pantoprazole Sodium 40 mg 03/05/19 09:00 03/06/19 08:56 Protonix IVP 40 mg DAILY CHELSEA Administration Promethazine HCl 25 mg 02/23/19 15:25 02/23/19 22:09 Phenergan IM/IV 25 mg Q6H PRN Administration Nausea/Vomiting Propofol 1,000 mg 02/24/19 15:35 03/06/19 12:38 Diprivan IV 03/26/19 15:35 1,000 mg INF PRN Administration TO ACHIEVE GOAL RASS Protocol Sodium Chloride 10 ml 02/22/19 09:00 03/06/19 09:03 Flush - Normal Saline IVF 10 ml Q12HR CHELSEA Administration Sterile Water 1 ml 02/21/19 21:56 03/03/19 21:03 Bacteriostatic Water FS 1 ml PRN PRN Administration RECONSTITUTION Tbo-Filgrastim 480 mcg 03/06/19 09:00 03/06/19 09:16 Granix SC 480 mcg DAILY CHELSEA Administration - Exam Eye: PERRL Heart: RRR, no murmur, no gallops, no rubs, normal peripheral pulses Respiratory: CTAB (+ coarse breath sounds bilaterally), rhonchi Gastrointestinal: soft, non-tender, non-distended, normal bowel sounds Extremities: no cyanosis, no clubbing, no edema Hosp A/P (1) Acute respiratory failure with hypoxia Code(s): J96.01 - ACUTE RESPIRATORY FAILURE WITH HYPOXIA Status: Acute (2) Lung mass Code(s): R91.8 - OTHER NONSPECIFIC ABNORMAL FINDING OF LUNG FIELD Status: Acute (3) Small cell carcinoma of right lung Code(s): C34.91 - MALIGNANT NEOPLASM OF UNSP PART OF RIGHT BRONCHUS OR LUNG Status: Chronic (4) CAD (coronary artery disease) Code(s): I25.10 - ATHSCL HEART DISEASE OF [place] CORONARY ARTERY W/O ANG PCTRS Status: Chronic Qualifiers: Coronary Disease-Associated Artery/Lesion type: [place] artery [place] vs. transplanted heart: [place] heart Associated angina: without angina Qualified Code(s): I25.10 - Atherosclerotic heart disease of [place] coronary artery without angina pectoris (5) HTN (hypertension) Code(s): I10 - ESSENTIAL (PRIMARY) HYPERTENSION Status: Chronic Qualifiers: Hypertension type: essential hypertension Qualified Code(s): I10 - Essential (primary) hypertension (6) Malnutrition of moderate degree Code(s): E44.0 - MODERATE PROTEIN-CALORIE MALNUTRITION Status: Chronic - Plan * Acute respiratory failure- due to advanced cancer continue chemotherapy * Pancytopenia-continue Neutropenic precautions, and plan is for Neupogen in a few days * Hypernatremia- improved * HTN- blood pressure is stable * Nutritional support - continue tube feeding * Continue supportive care
[2019-03-06] MEDS: Vancomycin HCl 1 GM in Premix Bag 1 BAG IVPB SCH (17:19)
[2019-03-06] MEDS: Atorvastatin Calcium 40 MG TAB PO SCH ×2 (21:10→21:20)
[2019-03-07] MEDS: Metoclopramide HCl 10 MG/2 ML VIAL IVP SCH ×4 (01:44→21:32)
[2019-03-07] MEDS: Cefepime 1 GM in Sodium Chloride 0.9% 100 ML IVPB SCH ×2 (02:10→14:57)
[2019-03-07] MEDS: Vancomycin HCl 1 GM in Premix Bag 1 BAG IVPB SCH ×2 (02:46→16:49)
[2019-03-07] MEDS: Propofol 1,000 MG/100 ML VIAL IV PRN (03:36)
[2019-03-07] MEDS: Acetaminophen 325 MG TAB PO PRN (03:45)
[2019-03-07] MEDS: Micafungin 100 MG in Sodium Chloride 0.9% 100 ML IVPB SCH (03:59)
[2019-03-07] MEDS: fentaNYL Citrate/PF 2,000 MCG in Sodium Chloride 0.9% 60 ML IV SCH (04:47)
[2019-03-07 05:38] LABS: White Blood Cell (WBC) Count 0.4 thou/uL (4.8-10.8)
[2019-03-07 05:44] LABS: Digoxin 0.75 ng/mL (0.8-2.0)
[2019-03-07 05:46] LABS: Anion Gap 15 mmol/L (10-20); BUN (Urea Nitrogen) 76 mg/dL (8.4-25.7); Calc. Creatinine Clearance 53 mL/min (70-130); Calcium 7.7 mg/dL (7.8-10.44); Carbon Dioxide 19 mmol/L (23-31); Chloride 116 mmol/L (98-107); Estimated GFR-MDRD 55; Glucose 222 mg/dL (80-115); Potassium 3.5 mmol/L (3.5-5.1); Sodium 146 mmol/L (136-145)
[2019-03-07 05:58] LABS: Mean Corpuscular HGB CONC 34.7 g/dL (32.0-36.0); Mean Corpuscular Hemoglobin 32.5 pg (27.0-31.0); Mean Corpuscular Volume 93.8 fL (78.0-98.0); Mean Platelet Volume 9.5 fL (7.4-10.4); Platelet Count 32 thou/uL (130-400); Platelet Morphology Comment Appears Decreased; RBC Distribution Width 13.3 % (11.5-14.5); RBC Morphology Normal; Red Blood Cell (RBC) Count 3.08 mill/uL (4.70-6.10)
--- NOTE | 2019-03-07 08:08 | RAD ---
Portable frontal chest radiograph: 03/07/2019 COMPARISON: 03/06/2019 HISTORY: Pneumonia FINDINGS: Stable mass lesion noted in the right paratracheal region/right hilar region/subcarinal reg ion. Endotracheal tube and nasogastric tube are in stable position. There is increased linear interstitial density within the left lung with hazy increased density in the medial left base, which may signify volume loss or infiltrate within the left lower lobe. There is veiling opacity within the right hemithorax suggesting right pleural fluid. There is airspac e disease suspected in the right perihilar region and right lung base as well. Findings are stable when compared to the study performed 03/06/2019. IMPRESSION: Stable frontal chest radiograph as detailed above.
--- NOTE | 2019-03-07 08:19 | PRG ---
DATE OF SERVICE: 03/07/2019 35 minutes critical care time. SUBJECTIVE: The patient remains intubated on mechanical ventilation. There has been no acute changes overnight. OBJECTIVE: VITAL SIGNS: His temperature is 100.5, pulse 85, blood pressure 84/42. He is currently on Cardizem 10 mg/hour. Intake for 24 hours, 960, output 2120. HEENT: Unremarkable. NECK: No JVD. LUNGS: Clear anteriorly. CARDIAC: S1, S2. Now sinus rhythm. ABDOMEN: Soft and nontender. EXTREMITIES: No clubbing or cyanosis. He has trace hand edema. LABORATORY DATA: Sodium 146, potassium 3.5, chloride 116, CO2 of 19, BUN 76, creatinine 1.3, glucose 222. White blood cell count 0.4, hematocrit 28.9, and platelet count 32. IMAGING STUDIES: Chest x-ray shows no acute change. ASSESSMENT: 1. Small cell lung cancer. 2. Acute respiratory failure requiring mechanical ventilation. 3. Neutropenic fever. 4. Pancytopenia. 5. Renal insufficiency. PLAN: 1. We will perform bronchoscopy today to see if there has been any improvement in the appearance of the airways. 2. Continue cefepime, Levaquin, and micafungin as well as vancomycin. 3. His renal function is somewhat precarious. Sodium is starting to increase again. I will put him on some low-dose fluids. 4. I spoke with the family including his sister and brother yesterday. They seem to have fairly good understanding of the situation, but do not want to prolong things, if this does not look like it will improve. Job ID: [id number]
[2019-03-07] MEDS: Sodium Chloride 0.45% 1,000 ML IV SCH ×2 (08:44→21:31)
[2019-03-07] MEDS: methylPREDNISolone Sod Succ 40 MG VIAL IVP SCH ×2 (08:53→21:33)
[2019-03-07] MEDS: Pantoprazole 40 MG VIAL IVP SCH (08:55)
[2019-03-07] MEDS: Digoxin 0.5 MG/2 ML AMP SLOW IVP SCH (08:58)
--- NOTE | 2019-03-07 10:07 | PDOC.MOPN ---
Interval History: remains sedated on vent - Vital Signs Vital Signs: Vital Signs (12 hours) Temp Pulse Resp BP Pulse Ox 03/07/19 09:00 98.8 F 03/07/19 08:18 85 84/57 L 03/07/19 08:17 85 14 98 03/07/19 08:00 14 03/07/19 06:00 100.5 F H 15 03/07/19 05:00 100.6 F H 03/07/19 04:00 100.8 F H 16 03/07/19 03:00 100.5 F H 03/07/19 02:05 122 H 91/53 L 03/07/19 02:00 100.3 F H 14 03/07/19 01:00 100.2 F H 03/07/19 00:00 19 03/06/19 23:00 98.2 F Weight Admit Weight 145 lb 15.136 oz Weight 145 lb Most Recent Monitor Data Heart Rate from ECG 85 NIBP 109/55 NIBP BP-Mean 68 Respiration from ECG 19 SpO2 100 - Physical Exam General: Other HEENT: Mucous membr. moist/pink Lungs: Other (crackles) Cardiovascular: Regular rate Abdomen: Normal bowel sounds Extremities: No clubbing, No cyanosis, No edema, Normal pulses, No tenderness/ swelling Skin: No rashes, No breakdown, No significant lesion Neurological: Other - Labs Result Diagrams: 03/07/19 04:00 03/07/19 04:00 Lab results: Laboratory Results - last 24 hr 03/07/19 04:00: Digoxin 0.75 L 03/07/19 04:00: WBC 0.4 L*, RBC 3.08 L, Hgb 10.0 L, Hct 28.9 L, MCV 93.8, MCH 32.5 H, MCHC 34.7, RDW 13.3, Plt Count 32 L, MPV 9.5, Neutrophils % (Manual) Not Reportable, Neutrophils # Not Reportable, Lymphocytes # Not Reportable, Plt Morphology Comment Appears Decreased L, RBC Morph Comment Normal 03/07/19 04:00: Sodium 146 H, Potassium 3.5, Chloride 116 H, Carbon Dioxide 19 L , Anion Gap 15, BUN 76 H, Creatinine 1.31 H, Estimated GFR (MDRD) 55, Glucose 222 H, Calcium 7.7 L Status: lab reviewed by me A/P - Problem (1) Acute respiratory failure with hypoxia Current Visit: Yes Code(s): J96.01 - ACUTE RESPIRATORY FAILURE WITH HYPOXIA Status: Acute (2) Lung mass Current Visit: Yes Code(s): R91.8 - OTHER NONSPECIFIC ABNORMAL FINDING OF LUNG FIELD Status: Acute (3) Pancytopenia Current Visit: Yes Code(s): D61.818 - OTHER PANCYTOPENIA Status: Acute - Plan Plan: bronch yesterday showed reduction in lung mass, now able to pass scope patient remains weak and unweanable, hopefully can wean soon recommend avoid trach as would require LTAC or NH and he would not be able to get further chemo. Dr. Torres has discussed situation with [facility], Patients sister.
--- NOTE | 2019-03-07 10:13 | OP ---
DATE OF PROCEDURE: 03/07/2019 PROCEDURE: Fiberoptic bronchoscopy. PREOPERATIVE DIAGNOSIS: Small cell lung cancer with high-grade endobronchial obstruction. POSTOPERATIVE DIAGNOSIS: Small cell lung cancer with high-grade endobronchial obstruction. ANESTHESIA: The patient was on propofol during the procedure. DESCRIPTION OF PROCEDURE: Informed consent was obtained from the patient's sister. Discussed the risks and potential complications with him yesterday. The patient had previously been intubated and was on mechanical ventilation through a size 8 endotracheal tube. A size 2.8 Olympus bronchoscope was placed down the patient's endotracheal tube while he was on volume cycled ventilation. Notable findings included a 40% stenotic right mainstem bronchus. The right upper lobe has approximately 70% to 80% extrinsic compression. There was endobronchial disease present at the [place] of the subsegments of the right upper lobe. There also appears to be endobronchial disease present in the bronchus intermedius. The scope can be passed into the right middle lobe and right lower lobe. There was almost no extrinsic obstruction present in the left mainstem bronchus and the left upper lobe and left lower lobe looked clear. He tolerated the procedure well. Job ID: [id number]
--- NOTE | 2019-03-07 13:13 | PDOC.HOSPP ---
- Subjective Encounter Date: 03/07/19 Encounter Time: 13:12 Subjective: Mr. Beckford was seen today in follow-up of respiratory failure due to Lung cancer. He is intubated, and sedated. - Objective Vital Signs & Weight: Vital Signs (12 hours) Temp Pulse Resp BP Pulse Ox 03/07/19 11:10 82 102/67 03/07/19 11:08 82 16 99 03/07/19 10:00 14 03/07/19 09:00 98.8 F 03/07/19 08:18 85 84/57 L 03/07/19 08:17 85 14 98 03/07/19 08:00 14 100 03/07/19 06:00 100.5 F H 15 03/07/19 05:00 100.6 F H 03/07/19 04:00 100.8 F H 16 03/07/19 03:00 100.5 F H 03/07/19 02:05 122 H 91/53 L 03/07/19 02:00 100.3 F H 14 Weight Admit Weight 145 lb 15.136 oz Weight 145 lb Most Recent Monitor Data Heart Rate from ECG 82 NIBP 102/67 NIBP BP-Mean 72 Respiration from ECG 14 SpO2 100 I&O: 03/06/19 03/07/19 03/08/19 06:59 06:59 06:59 Intake Total 3092.7 960.1 150 Output Total 1999 7190 285 Balance 1092.7 -1159.9 -135 Result Diagrams: 03/07/19 04:00 03/07/19 04:00 Hospitalist ROS - Medication Medications: Active Medications Generic Name Dose Route Start Last Admin Trade Name Shailesh PRN Reason Stop Dose Admin Acetaminophen 650 mg 02/21/19 20:58 03/07/19 03:45 Tylenol PO 650 mg Q4H PRN Administration Headache/Fever/Mild Pain (1-3) Albuterol/Ipratropium 3 ml 02/21/19 22:30 03/07/19 11:08 Duoneb NEB 3 ml [id number] CHELSEA Administration Artificial Tears 2 drop 03/05/19 08:04 03/05/19 14:38 Tears Naturale EA EYE 2 drop Q4H PRN Administration Dry Eyes Atorvastatin Calcium 80 mg 02/22/19 21:00 03/06/19 21:10 Lipitor PO Not Given HS CHELSEA Digoxin 0.125 mg 03/07/19 09:00 03/07/19 08:58 Lanoxin SLOW IVP 0.125 mg DAILY CHELSEA Administration Sodium Chloride 1,000 mls @ 0 mls/hr 02/22/19 14:30 03/03/19 22:11 1/2 Normal Saline IV 1,000 mls .Q0M CHELSEA Administration KVO Fentanyl Citrate 2,000 mcg/ 100 mls @ 0 mls/hr 02/24/19 15:35 03/07/19 04:47 Sodium Chloride IV 03/26/19 15:35 100 mls INF CHELSEA Administration Protocol Per Protocol Palonosetron 0.25 mg/ Sodium 55 mls @ 165 mls/hr 02/27/19 11:30 02/27/19 14: 09 Chloride IVPB 55 mls WILLCALL CHELSEA Administration Dexamethasone Sodium Phosphate 51 mls @ 153 mls/hr 02/27/19 11:30 02/27/19 14 :09 10 mg/ Sodium Chloride IVPB 51 mls WILLCALL CHELSEA Administration Carboplatin 338.4 mg/ Sodium 283.84 mls @ 378.453 mls/hr 02/27/19 11:30 02/27 15:19 Chloride IVPB 283.84 mls WILLCALL CHELSEA Administration Etoposide 186 mg/ Sodium 509.3 mls @ 509.3 mls/hr 02/27/19 11:30 03/01/19 12: 13 Chloride IVPB 509.3 mls WILLCALL CHELSEA Administration Levofloxacin 750 mg/ Device 150 mls @ 100 mls/hr 03/01/19 09:00 03/07/19 09: 14 IVPB 150 mls Q2D@0900 CHELSEA Administration Cefepime HCl 1 gm/ Sodium 100 mls @ 200 mls/hr 03/06/19 03:00 03/07/19 02:10 Chloride IVPB 100 mls 0300,1500 CHELSEA Administration Micafungin Sodium 100 mg/ 100 mls @ 100 mls/hr 03/06/19 04:00 03/07/19 03:59 Sodium Chloride IVPB 100 mls 0400 CHELSEA Administration Vancomycin HCl 1 gm/ Device 200 mls @ 200 mls/hr 03/06/19 15:00 03/07/19 02: 46 IVPB 200 mls 0300,1500 CHELSEA Administration Sodium Chloride 1,000 mls @ 75 mls/hr 03/07/19 07:45 03/07/19 08:44 1/2 Normal Saline IV 1,000 mls .[id number] CHELSEA Administration Midazolam HCl 100 mls @ 0 mls/hr 03/07/19 08:00 03/07/19 09:01 Versed IVPB 100 mls INF CHELSEA Administration Protocol Titrate Lorazepam 2 mg 02/24/19 15:35 02/27/19 17:07 Ativan SLOW IVP 03/26/19 15:35 2 mg Q1H PRN Administration Breakthrough agitation Methylprednisolone Sodium Succinate 20 mg 03/05/19 08:05 03/07/19 08:53 Solu-Medrol IVP 20 mg Q12HR CHELSEA Administration Metoclopramide HCl 10 mg 02/28/19 07:45 03/07/19 08:48 Reglan IVP 10 mg Q6H CHELSEA Administration Morphine Sulfate 2 mg 02/24/19 15:35 03/03/19 12:52 Morphine SLOW IVP 03/26/19 15:35 2 mg Q1H PRN Administration BREAKTHROUGH PAIN/Agitation Ondansetron HCl 8 mg 03/01/19 07:53 03/03/19 19:46 Zofran IVP 8 mg Q6H PRN Administration Nausea/Vomiting Pantoprazole Sodium 40 mg 03/05/19 09:00 03/07/19 08:55 Protonix IVP 40 mg DAILY CHELSEA Administration Promethazine HCl 25 mg 02/23/19 15:25 02/23/19 22:09 Phenergan IM/IV 25 mg Q6H PRN Administration Nausea/Vomiting Sodium Chloride 10 ml 02/22/19 09:00 03/07/19 09:01 Flush - Normal Saline IVF 10 ml Q12HR CHELSEA Administration Sterile Water 1 ml 02/21/19 21:56 03/03/19 21:03 Bacteriostatic Water FS 1 ml PRN PRN Administration RECONSTITUTION Tbo-Filgrastim 480 mcg 03/06/19 09:00 03/07/19 08:51 Granix SC 480 mcg DAILY CHELSEA Administration - Exam Eye: PERRL Heart: RRR, no murmur, no gallops, no rubs, normal peripheral pulses Respiratory: CTAB, no wheezes, no rales, no ronchi, normal chest expansion Gastrointestinal: soft, non-tender, non-distended, normal bowel sounds, no palpable masses Extremities: no cyanosis, no clubbing, no edema Musculoskeletal: diffuse muscle atrophy Hosp A/P (1) Acute respiratory failure with hypoxia Code(s): J96.01 - ACUTE RESPIRATORY FAILURE WITH HYPOXIA Status: Acute (2) Lung mass Code(s): R91.8 - OTHER NONSPECIFIC ABNORMAL FINDING OF LUNG FIELD Status: Acute (3) Small cell carcinoma of right lung Code(s): C34.91 - MALIGNANT NEOPLASM OF UNSP PART OF RIGHT BRONCHUS OR LUNG Status: Chronic (4) CAD (coronary artery disease) Code(s): I25.10 - ATHSCL HEART DISEASE OF [place] CORONARY ARTERY W/O ANG PCTRS Status: Chronic Qualifiers: Coronary Disease-Associated Artery/Lesion type: [place] artery [place] vs. transplanted heart: [place] heart Associated angina: without angina Qualified Code(s): I25.10 - Atherosclerotic heart disease of [place] coronary artery without angina pectoris (5) HTN (hypertension) Code(s): I10 - ESSENTIAL (PRIMARY) HYPERTENSION Status: Chronic Qualifiers: Hypertension type: essential hypertension Qualified Code(s): I10 - Essential (primary) hypertension (6) Malnutrition of moderate degree Code(s): E44.0 - MODERATE PROTEIN-CALORIE MALNUTRITION Status: Chronic - Plan * Acute respiratory failure- due to advanced cancer continue chemotherapy - Bronchoscopy findings noted- he has had significant shrinkage of the tumor mass. He remains intubated due to severe muscular weakness * Pancytopenia-continue Neutropenic precautions- he developed fever early this morning, and Cefepime, Vancomycin and Micafungin have been added * Hypernatremia- stable * HTN- blood pressure is stable * Nutritional support - continue tube feeding * Continue supportive care
[2019-03-07 14:24] LABS: Vancomycin, Trough 18.6 ug/mL
[2019-03-07] MEDS: Atorvastatin Calcium 40 MG TAB PO SCH (21:32)
[2019-03-08] MEDS: Cefepime 1 GM in Sodium Chloride 0.9% 100 ML IVPB SCH ×2 (02:28→16:07)
[2019-03-08] MEDS: Vancomycin HCl 1 GM in Premix Bag 1 BAG IVPB SCH (02:28)
[2019-03-08] MEDS: Metoclopramide HCl 10 MG/2 ML VIAL IVP SCH ×4 (02:28→21:49)
[2019-03-08] MEDS: Micafungin 100 MG in Sodium Chloride 0.9% 100 ML IVPB SCH (04:30)
[2019-03-08 05:14] LABS: Anion Gap 12 mmol/L (10-20); BUN (Urea Nitrogen) 93 mg/dL (8.4-25.7); Calc. Creatinine Clearance 45 mL/min (70-130); Calcium 7.6 mg/dL (7.8-10.44); Carbon Dioxide 21 mmol/L (23-31); Chloride 117 mmol/L (98-107); Estimated GFR-MDRD 46; Glucose 247 mg/dL (80-115); Potassium 3.8 mmol/L (3.5-5.1); Sodium 146 mmol/L (136-145)
[2019-03-08 05:38] LABS: Hemoglobin 8.8 g/dL (14.0-18.0); Mean Corpuscular HGB CONC 33.7 g/dL (32.0-36.0); Mean Corpuscular Hemoglobin 31.5 pg (27.0-31.0); Mean Corpuscular Volume 93.2 fL (78.0-98.0); Mean Platelet Volume 8.7 fL (7.4-10.4); Platelet Count 22 thou/uL (130-400); Platelet Morphology Comment Appears Decreased; RBC Distribution Width 13.1 % (11.5-14.5); White Blood Cell (WBC) Count 0.3 thou/uL (4.8-10.8)
[2019-03-08 06:36] LABS: Actual Bicarbonate (HCO3a) 16.6 mEq/L (22-28); Base Excess (BEa) -7.2 mEq/L (-2.0 to +3.0); CO2 Tension 28.6 mmHg (35.0-45.0); Calcium, Ionized 1.15 mmol/L (1.12-1.30); Carboxyhemoglobin (COHb) 0.4 gm% (0.0-3.0); Hemoglobin (Hb) 12.5 g/dL (14.0-18.0); O2 Tension (PaO2) 110.6 mmHg (> 80.0); pH, Arterial 7.38 (7.35-7.45)
[2019-03-08 06:40] LABS: Puncture Site RBRACH
[2019-03-08] MEDS ORDERED: Dextrose 50% Abboject 50 ML SYRINGE SLOW IVP PRN (07:47)
[2019-03-08] MEDS ORDERED: Dextrose 5% in Water 1,000 ML IV PRN (07:47)
--- NOTE | 2019-03-08 08:28 | PRG ---
DATE OF SERVICE: 03/08/2019 35 minutes critical care time. SUBJECTIVE: The patient remains intubated on mechanical ventilation. There has been no acute changes overnight. OBJECTIVE: VITAL SIGNS: His temperature is 98.4, pulse 78, blood pressure 115/80, O2 saturation 100%. Intake for 24 hours 2761 and output 1875. HEENT: Unremarkable. NECK: No JVD. LUNGS: Coarse breath sounds bilaterally. CARDIOVASCULAR: S1, S2. Slightly tachycardic. ABDOMEN: Soft, nontender. EXTREMITIES: No edema. LABORATORY DATA: Sodium 146, potassium 3.8, chloride 117, CO2 of 21, BUN 93, creatinine 1.5, glucose 247. White blood cell count 0.3, hematocrit 26.1 and platelet count 22. PH of 7.38, pCO2 of 28, PO2 of 110 on SIMV rate 14, inspiratory pressure 20, FiO2 40%. Cultures show no growth to date. ASSESSMENT: 1. Small cell lung cancer with improvement in tumor burden since chemotherapy. 2. Pancytopenia from the chemotherapy. 3. Suspicious for tumor lysis syndrome given worsening BUN and creatinine. 4. Neutropenic fever. 5. Critical illness myopathy. PLAN: 1. This is a tough situation. The patient's family is not wanting to prolong this situation. I think earliest we could proceed with extubation will be next week, but I am very afraid that his neuromuscular weakness will lead to his demise. 2. In terms of his renal function, I will go ahead and hold the vancomycin since nothing has come from the cultures. We will continue with hydration. 3. He has now developed hyperglycemia, so I will start sliding scale insulin. 4. We will continue tube feeds and hopefully be able to increase the rate over the weekend. 5. Prognosis remains very poor. Job ID: [id number]
--- NOTE | 2019-03-08 08:51 | RAD ---
CHEST 1 VIEW: Date: 03/08/19 INDICATION: History of pneumonia. COMPARISON: Prior exam dated 03/07/19. FINDINGS: Right-sided pleural parenchymal opacity persists. The patient remains intubated with gastric cathete r placement. Left lung is clear. Osseous structures unchanged. IMPRESSION: Stable exam. POS: OFF
[2019-03-08] MEDS: Digoxin 0.5 MG/2 ML AMP SLOW IVP SCH (09:53)
[2019-03-08] MEDS: methylPREDNISolone Sod Succ 40 MG VIAL IVP SCH (09:55)
[2019-03-08] MEDS: Pantoprazole 40 MG VIAL IVP SCH (09:58)
[2019-03-08] MEDS: Sodium Chloride 0.45% 1,000 ML IV SCH (11:55)
[2019-03-08] MEDS: Insulin Regular 300 UNITS/3 ML VIAL SC PRN ×2 (12:06→18:28)
--- NOTE | 2019-03-08 12:56 | PDOC.HOSPP ---
- Subjective Encounter Date: 03/08/19 Encounter Time: 12:54 Subjective: Mr. Beckford was seen today in follow-up of respiratory failure. He remains intubated. - Objective Vital Signs & Weight: Vital Signs (12 hours) Temp Pulse Resp BP Pulse Ox 03/08/19 12:00 15 03/08/19 11:00 98.5 F 03/08/19 10:23 99 03/08/19 10:22 100 15 100 03/08/19 10:00 19 03/08/19 09:53 97 03/08/19 08:00 98.7 F 14 98 03/08/19 06:53 97 24 H 100 03/08/19 06:00 14 03/08/19 04:00 14 03/08/19 02:27 96 107/76 03/08/19 02:00 14 Weight Admit Weight 145 lb 15.136 oz Weight 145 lb Most Recent Monitor Data Heart Rate from ECG 113 NIBP 127/83 NIBP BP-Mean 95 Respiration from ECG 16 SpO2 99 I&O: 03/07/19 03/08/19 03/09/19 06:59 06:59 06:59 Intake Total 960.1 2761.7 60 Output Total 2120 1875 525 Balance -1159.9 886.7 -465 Result Diagrams: 03/08/19 04:27 03/08/19 04:27 Additional Labs: Accuchecks 03/08/19 12:05 POC Glucose 254 H Hospitalist ROS - Medication Medications: Active Medications Generic Name Dose Route Start Last Admin Trade Name Freq PRN Reason Stop Dose Admin Acetaminophen 650 mg 02/21/19 20:58 03/07/19 03:45 Tylenol PO 650 mg Q4H PRN Administration Headache/Fever/Mild Pain (1-3) Albuterol/Ipratropium 3 ml 02/21/19 22:30 03/08/19 10:22 Duoneb NEB 3 ml [id number] CHELSEA Administration Artificial Tears 2 drop 03/05/19 08:04 03/05/19 14:38 Tears Naturale EA EYE 2 drop Q4H PRN Administration Dry Eyes Digoxin 0.125 mg 03/07/19 09:00 03/08/19 09:53 Lanoxin SLOW IVP 0.125 mg DAILY CHELSEA Administration Sodium Chloride 1,000 mls @ 0 mls/hr 02/22/19 14:30 03/03/19 22:11 1/2 Normal Saline IV 1,000 mls .Q0M CHELSEA Administration KVO Fentanyl Citrate 2,000 mcg/ 100 mls @ 0 mls/hr 02/24/19 15:35 03/07/19 04:47 Sodium Chloride IV 03/26/19 15:35 100 mls INF CHELSEA Administration Protocol Per Protocol Palonosetron 0.25 mg/ Sodium 55 mls @ 165 mls/hr 02/27/19 11:30 02/27/19 14: 09 Chloride IVPB 55 mls WILLCALL CHELSEA Administration Dexamethasone Sodium Phosphate 51 mls @ 153 mls/hr 02/27/19 11:30 02/27/19 14 :09 10 mg/ Sodium Chloride IVPB 51 mls WILLCALL CHELSEA Administration Carboplatin 338.4 mg/ Sodium 283.84 mls @ 378.453 mls/hr 02/27/19 11:30 02/27 15:19 Chloride IVPB 283.84 mls WILLCALL CHELSEA Administration Etoposide 186 mg/ Sodium 509.3 mls @ 509.3 mls/hr 02/27/19 11:30 03/01/19 12: 13 Chloride IVPB 509.3 mls WILLCALL CHELSEA Administration Levofloxacin 750 mg/ Device 150 mls @ 100 mls/hr 03/01/19 09:00 03/07/19 09: 14 IVPB 150 mls Q2D@0900 CHELSEA Administration Cefepime HCl 1 gm/ Sodium 100 mls @ 200 mls/hr 03/06/19 03:00 03/08/19 02:28 Chloride IVPB 100 mls 0300,1500 CHELSEA Administration Sodium Chloride 1,000 mls @ 75 mls/hr 03/07/19 07:45 03/08/19 11:55 1/2 Normal Saline IV 1,000 mls .[id number] CHELSEA Administration Midazolam HCl 100 mls @ 0 mls/hr 03/07/19 08:00 03/07/19 09:01 Versed IVPB 100 mls INF CHELSEA Administration Protocol Titrate Insulin Human Regular 0 units 03/08/19 07:47 03/08/19 12:06 Humulin R SC 6 unit .MODERATE SLIDING SC PRN Administration Moderate Correctional Scale Lorazepam 2 mg 02/24/19 15:35 02/27/19 17:07 Ativan SLOW IVP 03/26/19 15:35 2 mg Q1H PRN Administration Breakthrough agitation Methylprednisolone Sodium Succinate 10 mg 03/08/19 09:00 03/08/19 09:55 Solu-Medrol IVP 10 mg DAILY CHELSEA Administration Metoclopramide HCl 10 mg 02/28/19 07:45 03/08/19 09:51 Reglan IVP 10 mg Q6H CHELSEA Administration Morphine Sulfate 2 mg 02/24/19 15:35 03/03/19 12:52 Morphine SLOW IVP 03/26/19 15:35 2 mg Q1H PRN Administration BREAKTHROUGH PAIN/Agitation Ondansetron HCl 8 mg 03/01/19 07:53 03/03/19 19:46 Zofran IVP 8 mg Q6H PRN Administration Nausea/Vomiting Pantoprazole Sodium 40 mg 03/05/19 09:00 03/08/19 09:58 Protonix IVP 40 mg DAILY CHELSEA Administration Promethazine HCl 25 mg 02/23/19 15:25 02/23/19 22:09 Phenergan IM/IV 25 mg Q6H PRN Administration Nausea/Vomiting Sodium Chloride 10 ml 02/22/19 09:00 03/08/19 10:00 Flush - Normal Saline IVF 10 ml Q12HR CHELSEA Administration Sterile Water 1 ml 02/21/19 21:56 03/03/19 21:03 Bacteriostatic Water FS 1 ml PRN PRN Administration RECONSTITUTION Tbo-Filgrastim 480 mcg 03/06/19 09:00 03/08/19 11:05 Granix SC 480 mcg DAILY CHELSEA Administration - Exam Eye: PERRL Respiratory: CTAB, no wheezes, no rales, no ronchi, normal chest expansion Gastrointestinal: soft, non-tender, non-distended, normal bowel sounds, no palpable masses, no hepatomegaly Extremities: no cyanosis Musculoskeletal: diffuse muscle atrophy Hosp A/P (1) Acute respiratory failure with hypoxia Code(s): J96.01 - ACUTE RESPIRATORY FAILURE WITH HYPOXIA Status: Acute (2) Lung mass Code(s): R91.8 - OTHER NONSPECIFIC ABNORMAL FINDING OF LUNG FIELD Status: Acute (3) Small cell carcinoma of right lung Code(s): C34.91 - MALIGNANT NEOPLASM OF UNSP PART OF RIGHT BRONCHUS OR LUNG Status: Chronic (4) CAD (coronary artery disease) Code(s): I25.10 - ATHSCL HEART DISEASE OF [place] CORONARY ARTERY W/O ANG PCTRS Status: Chronic Qualifiers: Coronary Disease-Associated Artery/Lesion type: [place] artery [place] vs. transplanted heart: [place] heart Associated angina: without angina Qualified Code(s): I25.10 - Atherosclerotic heart disease of [place] coronary artery without angina pectoris (5) HTN (hypertension) Code(s): I10 - ESSENTIAL (PRIMARY) HYPERTENSION Status: Chronic Qualifiers: Hypertension type: essential hypertension Qualified Code(s): I10 - Essential (primary) hypertension (6) Malnutrition of moderate degree Code(s): E44.0 - MODERATE PROTEIN-CALORIE MALNUTRITION Status: Chronic - Plan * Acute respiratory failure- due to advanced cancer continue chemotherapy - Continue Chemotherapy, and ventilator support * Pancytopenia- with Neutropenic fever- continue Neutropenic precautions- and broad spectrum antibiotics ( Cefepime Vancomycin and Micafungin ) * HTN- blood pressure is stable * Nutritional support - continue tube feeding * Continue supportive care
--- NOTE | 2019-03-08 15:55 | PDOC.MOPN ---
Interval History: No change, remains on vent - Vital Signs Vital Signs: Vital Signs (12 hours) Temp Pulse Resp Pulse Ox 03/08/19 14:18 111 H 03/08/19 14:17 111 H 16 96 03/08/19 14:00 31 H 03/08/19 12:00 15 03/08/19 11:00 98.5 F 03/08/19 10:23 99 03/08/19 10:22 100 15 100 03/08/19 10:00 19 03/08/19 09:53 97 03/08/19 08:00 98.7 F 14 98 03/08/19 06:53 97 24 H 100 03/08/19 06:00 14 03/08/19 04:00 14 Weight Admit Weight 145 lb 15.136 oz Weight 145 lb Most Recent Monitor Data Heart Rate from ECG 118 NIBP 123/83 NIBP BP-Mean 97 Respiration from ECG 25 SpO2 99 - Physical Exam General: No acute distress Lungs: Other (rhonchi) Cardiovascular: Regular rate, Normal S1, Normal S2, No murmurs, Gallops, Rubs Abdomen: Normal bowel sounds, Soft, No tenderness, No hepatospenomegaly, No masses Extremities: No clubbing, No cyanosis, No edema, Normal pulses, No tenderness/ swelling Neurological: Other (intubated) - Labs Result Diagrams: 03/08/19 04:27 03/08/19 04:27 Lab results: Laboratory Results - last 24 hr 03/08/19 12:05: POC Glucose 254 H 03/08/19 08:15: Uric Acid 7.0 03/08/19 06:30: Specimen Type ARTERIAL, Puncture Site RBRACH, Bicarbonate Actual 16.6 L, ABG pH 7.38, ABG pCO2 28.6 L, ABG pO2 110.6 H, ABG O2 Sat Calc/ Jamila 97.7, ABG O2 Content 17.3 L, ABG Base Excess -7.2 L, ABG Hematocrit 37.0 L , ABG Hemoglobin 12.5 L, ABG Oxyhemoglobin 97.3, ABG Carboxyhemoglobin 0.4, ABG Methemoglobin 0.00 L, ABG Deoxyhemoglobin 2.3, A-a O2 Gradient 138.850 H, Ionized Calcium 1.15, Mode of Support PC-SIMV, % Minute Volume 10.3, Mechanical Rate 14, Spontaneous Rate 0, Inspired O2 40, Inspiratory Time 0.75, Tidal Volume 698, Peak Inspir Pressure 20, Pressure Support 10, PEEP or CPAP 5.0, Sodium 144, Potassium 3.70, Chloride 114 H 03/08/19 04:27: WBC 0.3 L*, RBC 2.80 L, Hgb 8.8 L, Hct 26.1 L, MCV 93.2, MCH 31.5 H, MCHC 33.7, RDW 13.1, Plt Count 22 L*, MPV 8.7, Neutrophils % (Manual) Not Reportable, Plt Morphology Comment Appears Decreased L 03/08/19 04:27: Sodium 146 H, Potassium 3.8, Chloride 117 H, Carbon Dioxide 21 L , Anion Gap 12, BUN 93 H, Creatinine 1.53 H, Estimated GFR (MDRD) 46, Glucose 247 H, Calcium 7.6 L Status: lab reviewed by me A/P - Problem (1) Acute respiratory failure with hypoxia Current Visit: Yes Code(s): J96.01 - ACUTE RESPIRATORY FAILURE WITH HYPOXIA Status: Acute (2) Lung mass Current Visit: Yes Code(s): R91.8 - OTHER NONSPECIFIC ABNORMAL FINDING OF LUNG FIELD Status: Acute (3) Pancytopenia Current Visit: Yes Code(s): D61.818 - OTHER PANCYTOPENIA Status: Acute - Plan Plan: Continue Neupogen daily Consider platelet transfusion if fall < 15 supportive care
[2019-03-08] MEDS: fentaNYL Citrate/PF 2,000 MCG in Sodium Chloride 0.9% 60 ML IV SCH (17:32)
[2019-03-09] MEDS: Sodium Chloride 0.45% 1,000 ML IV SCH (00:44)
[2019-03-09] MEDS: Metoclopramide HCl 10 MG/2 ML VIAL IVP SCH ×4 (02:00→19:49)
[2019-03-09] MEDS: Cefepime 1 GM in Sodium Chloride 0.9% 100 ML IVPB SCH ×2 (04:09→16:51)
[2019-03-09 05:37] LABS: Anion Gap 16 mmol/L (10-20); BUN (Urea Nitrogen) 100 mg/dL (8.4-25.7); Calc. Creatinine Clearance 44 mL/min (70-130); Calcium 8.1 mg/dL (7.8-10.44); Carbon Dioxide 17 mmol/L (23-31); Chloride 120 mmol/L (98-107); Estimated GFR-MDRD 45; Glucose 181 mg/dL (80-115); Potassium 3.7 mmol/L (3.5-5.1); Sodium 149 mmol/L (136-145)
[2019-03-09 05:39] LABS: Digoxin 0.83 ng/mL (0.8-2.0)
[2019-03-09 05:45] LABS: Hemoglobin 10.9 g/dL (14.0-18.0); Mean Corpuscular HGB CONC 35.1 g/dL (32.0-36.0); Mean Corpuscular Hemoglobin 32.4 pg (27.0-31.0); Mean Corpuscular Volume 92.4 fL (78.0-98.0); Mean Platelet Volume 9.5 fL (7.4-10.4); Platelet Count 13 thou/uL (130-400); Platelet Morphology Comment Appears Decreased; RBC Distribution Width 13.1 % (11.5-14.5); Red Blood Cell (RBC) Count 3.35 mill/uL (4.70-6.10); White Blood Cell (WBC) Count 0.3 thou/uL (4.8-10.8)
[2019-03-09 06:50] LABS: Actual Bicarbonate (HCO3a) 13.6 mEq/L (22-28); Base Excess (BEa) -9.3 mEq/L (-2.0 to +3.0); Calcium, Ionized 1.17 mmol/L (1.12-1.30); Carboxyhemoglobin (COHb) 0.3 gm% (0.0-3.0); Hemoglobin (Hb) 10.8 g/dL (14.0-18.0); O2 Tension (PaO2) 80.2 mmHg (> 80.0); Potassium - ABG Lab 3.68 mmol/L (3.70-5.30); pH, Arterial 7.41 (7.35-7.45)
[2019-03-09 06:55] LABS: CO2 Tension 21.8 mmHg (35.0-45.0); Puncture Site RRAD
[2019-03-09] MEDS: Digoxin 0.5 MG/2 ML AMP SLOW IVP SCH (08:35)
[2019-03-09] MEDS: methylPREDNISolone Sod Succ 40 MG VIAL IVP SCH (08:37)
[2019-03-09] MEDS: Pantoprazole 40 MG VIAL IVP SCH (08:44)
--- NOTE | 2019-03-09 08:56 | RAD ---
FRONTAL RADIOGRAPH CHEST: 03/09/2019 HISTORY: Pneumonia. COMPARISON: 03/08/2019 FINDINGS: Stable suprahilar/right paratracheal mass. Stable endotracheal tube and nasogastric tube. Mild linear density in the medial left base may signify infiltrate or volume loss. Stable hazy density throughou t the right hemithorax suggests stable right pleural effusion with dense opacity in the right perihil ar region and right lung base, consistent with nonspecific consolidation/collapse and passive atelect asis from pleural fluid. IMPRESSION: Stable appearance of the chest as above. POS: [facility]
[2019-03-09] MEDS: Dextrose 5% in Water 1,000 ML IV SCH ×2 (10:45→19:50)
[2019-03-09] MEDS: Insulin Regular 300 UNITS/3 ML VIAL SC PRN ×2 (12:47→18:45)
--- NOTE | 2019-03-09 18:10 | PRG ---
DATE OF SERVICE: 03/09/2019 SUBJECTIVE: Paulino Beckford remains sedated from mechanical ventilation. OBJECTIVE: VITAL SIGNS: His heart rate is 108, blood pressure 102/70, respiratory rate is in the 20s, and oximetry is 100%. RESPIRATORY: His bilateral wheeze is louder on the left. HEART: Regular rhythm. ABDOMEN: Soft. EXTREMITIES: Without clubbing, cyanosis, or edema. IMAGING STUDIES: Chest x-ray today shows haziness on the right. His radiographs are essentially unchanged. LABORATORY DATA: White count is 300, hemoglobin 10.9, and platelets 13,000. Sodium 149, potassium 3.7, chloride 120, bicarb 17, BUN 100, and creatinine 1.57. Intake and output are positive 288. IMPRESSION AND PLAN: Respiratory failure associated with chronic obstructive pulmonary disease combined with small cell lung cancer, now status post chemotherapy with endoscopic improvement of his airways. It is unclear whether he will be strong enough to wean from mechanical ventilation at this time. He continues with respiratory care, steroids, antibiotics, sedation, nebulizer treatments, and low-dose of steroids. We will continue to follow. Currently, not weanable from mechanical ventilation. His blood gas today shows pH 7.1, pCO2 of 21, and pO2 of 80. His metabolic acidosis is predominantly hyperchloremic at this point, but not a clinical issue. Job ID: [id number]
--- NOTE | 2019-03-09 19:42 | PDOC.HOSPP ---
- Subjective Encounter Date: 03/09/19 Encounter Time: 10:00 Subjective: Patient still intubated, not followin commands. Sedation had to be increased overnight since the patient was uncomfortable. Platelets low, needs transfusion, discussed with oncology - Objective Vital Signs & Weight: Vital Signs (12 hours) Temp Pulse Pulse Pulse Resp BP BP 03/09/19 19:00 98.3 F 03/09/19 18:32 122 H 133/76 03/09/19 18:31 121 H 19 03/09/19 18:00 25 H 03/09/19 16:00 26 H 03/09/19 15:42 99.2 F 03/09/19 14:42 110 H 27 H 03/09/19 14:00 21 H 03/09/19 12:00 99.0 F 20 03/09/19 10:18 118 H 03/09/19 10:17 119 H 28 H 03/09/19 10:00 22 H 03/09/19 09:42 122 H 121 H 112/78 03/09/19 08:35 123 H 03/09/19 08:00 29 H BP Pulse Ox Pulse Ox Pulse Ox 03/09/19 19:00 03/09/19 18:32 03/09/19 18:31 100 03/09/19 18:00 03/09/19 16:00 03/09/19 15:42 03/09/19 14:42 100 03/09/19 14:00 03/09/19 12:00 03/09/19 10:18 03/09/19 10:17 97 03/09/19 10:00 03/09/19 09:42 97/68 100 100 03/09/19 08:35 03/09/19 08:00 100 Weight Admit Weight 145 lb 15.136 oz Weight 145 lb Most Recent Monitor Data Heart Rate from ECG 124 NIBP 119/78 NIBP BP-Mean 86 Respiration from ECG 22 SpO2 100 I&O: 03/08/19 03/09/19 03/10/19 06:59 06:59 06:59 Intake Total 2761.7 2383.1 1342 Output Total 1875 2095 1245 Balance 886.7 288.1 97 Result Diagrams: 03/09/19 04:26 03/09/19 04:26 Additional Labs: Accuchecks 03/09/19 03/09/19 03/09/19 18:47 12:49 04:28 POC Glucose 231 H 249 H 178 H 03/09/19 00:20 POC Glucose 164 H Hospitalist ROS - Review of Systems ROS unobtainable: due to mental status - Medication Medications: Active Medications Generic Name Dose Route Start Last Admin Trade Name Freq PRN Reason Stop Dose Admin Acetaminophen 650 mg 02/21/19 20:58 03/07/19 03:45 Tylenol PO 650 mg Q4H PRN Administration Headache/Fever/Mild Pain (1-3) Albuterol/Ipratropium 3 ml 02/21/19 22:30 03/09/19 18:31 Duoneb NEB 3 ml [id number] CHELSEA Administration Artificial Tears 2 drop 03/05/19 08:04 03/05/19 14:38 Tears Naturale EA EYE 2 drop Q4H PRN Administration Dry Eyes Digoxin 0.125 mg 03/07/19 09:00 03/09/19 08:35 Lanoxin SLOW IVP 0.125 mg DAILY CHELSEA Administration Sodium Chloride 1,000 mls @ 0 mls/hr 02/22/19 14:30 03/03/19 22:11 1/2 Normal Saline IV 1,000 mls .Q0M CHELSEA Administration KVO Fentanyl Citrate 2,000 mcg/ 100 mls @ 0 mls/hr 02/24/19 15:35 03/08/19 17:32 Sodium Chloride IV 03/26/19 15:35 100 mls INF CHELSEA Administration Protocol Per Protocol Palonosetron 0.25 mg/ Sodium 55 mls @ 165 mls/hr 02/27/19 11:30 02/27/19 14: 09 Chloride IVPB 55 mls WILLCALL CHELSEA Administration Dexamethasone Sodium Phosphate 51 mls @ 153 mls/hr 02/27/19 11:30 02/27/19 14 :09 10 mg/ Sodium Chloride IVPB 51 mls WILLCALL CHELSEA Administration Carboplatin 338.4 mg/ Sodium 283.84 mls @ 378.453 mls/hr 02/27/19 11:30 02/27 15:19 Chloride IVPB 283.84 mls WILLCALL CHELSEA Administration Etoposide 186 mg/ Sodium 509.3 mls @ 509.3 mls/hr 02/27/19 11:30 03/01/19 12: 13 Chloride IVPB 509.3 mls WILLCALL CHELSEA Administration Levofloxacin 750 mg/ Device 150 mls @ 100 mls/hr 03/01/19 09:00 03/09/19 08: 46 IVPB 150 mls Q2D@0900 CHELSEA Administration Cefepime HCl 1 gm/ Sodium 100 mls @ 200 mls/hr 03/06/19 03:00 03/09/19 16:51 Chloride IVPB 100 mls 0300,1500 CHELSEA Administration Midazolam HCl 100 mls @ 0 mls/hr 03/07/19 08:00 03/08/19 17:24 Versed IVPB 100 mls INF CHELSEA Administration Protocol Titrate Dextrose/Water 1,000 mls @ 75 mls/hr 03/09/19 09:30 03/09/19 10:45 D5w IV 1,000 mls .[id number] CHELSEA Administration Insulin Human Regular 0 units 03/08/19 07:47 03/09/19 18:45 Humulin R SC 4 unit .MODERATE SLIDING SC PRN Administration Moderate Correctional Scale Lorazepam 2 mg 02/24/19 15:35 02/27/19 17:07 Ativan SLOW IVP 03/26/19 15:35 2 mg Q1H PRN Administration Breakthrough agitation Methylprednisolone Sodium Succinate 10 mg 03/08/19 09:00 03/09/19 08:37 Solu-Medrol IVP 10 mg DAILY CHELSEA Administration Metoclopramide HCl 10 mg 02/28/19 07:45 03/09/19 16:51 Reglan IVP 10 mg Q6H CHELSEA Administration Morphine Sulfate 2 mg 02/24/19 15:35 03/03/19 12:52 Morphine SLOW IVP 03/26/19 15:35 2 mg Q1H PRN Administration BREAKTHROUGH PAIN/Agitation Ondansetron HCl 8 mg 03/01/19 07:53 03/03/19 19:46 Zofran IVP 8 mg Q6H PRN Administration Nausea/Vomiting Pantoprazole Sodium 40 mg 03/05/19 09:00 03/09/19 08:44 Protonix IVP 40 mg DAILY CHELSEA Administration Promethazine HCl 25 mg 02/23/19 15:25 02/23/19 22:09 Phenergan IM/IV 25 mg Q6H PRN Administration Nausea/Vomiting Sodium Chloride 10 ml 02/22/19 09:00 03/09/19 08:51 Flush - Normal Saline IVF 10 ml Q12HR CHELSEA Administration Sterile Water 1 ml 02/21/19 21:56 03/03/19 21:03 Bacteriostatic Water FS 1 ml PRN PRN Administration RECONSTITUTION Tbo-Filgrastim 480 mcg 03/06/19 09:00 03/09/19 13:34 Granix SC 480 mcg DAILY CHELSEA Administration - Exam General - other findings: intubated on sedation Eye: PERRL ENT: normocephalic atraumatic, no oropharyngeal lesions Neck: supple, symmetric, no JVD, no thyromegaly Heart: RRR, no murmur Respiratory: CTAB, no wheezes, no rales, no ronchi Gastrointestinal: soft, non-tender, non-distended Extremities: no cyanosis, no clubbing, no edema Skin: normal turgor, no lesions, no rashes Neurological: no new deficit Musculoskeletal: normal tone Psychiatric - other findings: intubated, sedated Hosp A/P - Plan Chest X ray: stable appearance of right paratracheal mass MRI brain : multiple small lacunar infarctions CT thorax/abdomen/pelvis: large mediastinal conglomeration of masses on right invading left side and hilum with severe narrowing of airway at lower trachea and kacey, right mainstem bronchus and right lower lobe bronchus. Small to moderate size right pleural effusion. This is a 63 year old male who presented with neutropenic fever Acute hypoxic respiratory failure secondary to small cell lung cancer - intubated and sedated - sedation increased overnight. Currently not responsive or following commands - goals of care discussion with family needed, possibly poor prognosis - receiving antibiotics and IV steroids Neutropenic fever - WBC 0.3 today, on vancomyin D4, cefepime D4, levaquin day 5 - sputum culture growing yeast, gram positive cocci. Body culture of pleural fluid negative, AFB negative, blood culture negative - continue neuopogen SC daily Thrombocytopenia - platelets 13, transfuse 1 unit of apheresis platelets. 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 -
[2019-03-09 20:33] LABS: White Blood Cell (WBC) Count 0.2 thou/uL (4.8-10.8)
[2019-03-09 20:48] LABS: Anion Gap 15 mmol/L (10-20); BUN (Urea Nitrogen) 98 mg/dL (8.4-25.7); Calc. Creatinine Clearance 44 mL/min (70-130); Carbon Dioxide 17 mmol/L (23-31); Chloride 120 mmol/L (98-107); Estimated GFR-MDRD 44; Glucose 228 mg/dL (80-115); Potassium 3.7 mmol/L (3.5-5.1); Sodium 148 mmol/L (136-145)
[2019-03-09 20:49] LABS: Hemoglobin 9.3 g/dL (14.0-18.0); Mean Corpuscular Hemoglobin 32.5 pg (27.0-31.0); Red Blood Cell (RBC) Count 2.86 mill/uL (4.70-6.10)
[2019-03-09 20:52] LABS: Mean Platelet Volume 8.1 fL (7.4-10.4); Platelet Count 43 thou/uL (130-400); Platelet Morphology Comment Appears Decreased
[2019-03-09] MEDS: fentaNYL Citrate/PF 2,000 MCG in Sodium Chloride 0.9% 60 ML IV SCH (22:06)
[2019-03-10] MEDS: Insulin Regular 300 UNITS/3 ML VIAL SC PRN ×4 (00:11→18:22)
[2019-03-10] MEDS: Metoclopramide HCl 10 MG/2 ML VIAL IVP SCH ×4 (01:12→21:46)
[2019-03-10] MEDS: Cefepime 1 GM in Sodium Chloride 0.9% 100 ML IVPB SCH ×2 (02:44→15:00)
[2019-03-10 05:00] LABS: Anion Gap 14 mmol/L (10-20); BUN (Urea Nitrogen) 92 mg/dL (8.4-25.7); Calc. Creatinine Clearance 46 mL/min (70-130); Calcium 8.1 mg/dL (7.8-10.44); Carbon Dioxide 17 mmol/L (23-31); Chloride 120 mmol/L (98-107); Estimated GFR-MDRD 47; Glucose 171 mg/dL (80-115); Potassium 3.5 mmol/L (3.5-5.1); Sodium 147 mmol/L (136-145)
[2019-03-10 05:07] LABS: Hemoglobin 8.9 g/dL (14.0-18.0); Mean Corpuscular Volume 94.3 fL (78.0-98.0); Mean Platelet Volume 8.6 fL (7.4-10.4); Platelet Count 35 thou/uL (130-400); RBC Distribution Width 12.9 % (11.5-14.5); Red Blood Cell (RBC) Count 2.69 mill/uL (4.70-6.10); White Blood Cell (WBC) Count 0.3 thou/uL (4.8-10.8)
[2019-03-10 07:21] LABS: Base Excess (BEa) -8.3 mEq/L (-2.0 to +3.0); Calcium, Ionized 1.16 mmol/L (1.12-1.30); Carboxyhemoglobin (COHb) 0.3 gm% (0.0-3.0); Hemoglobin (Hb) 9.6 g/dL (14.0-18.0); O2 Tension (PaO2) 112.7 mmHg (> 80.0); Potassium - ABG Lab 3.37 mmol/L (3.70-5.30); pH, Arterial 7.41 (7.35-7.45)
[2019-03-10 08:01] LABS: ALV-art Gradient 142.375 (0-20); CO2 Tension 24.1 mmHg (35.0-45.0); Puncture Site RRAD
[2019-03-10] MEDS: Digoxin 0.5 MG/2 ML AMP SLOW IVP SCH (08:13)
[2019-03-10] MEDS: methylPREDNISolone Sod Succ 40 MG VIAL IVP SCH (08:16)
[2019-03-10] MEDS: Pantoprazole 40 MG VIAL IVP SCH (08:16)
--- NOTE | 2019-03-10 08:21 | RAD ---
EXAM: Portable chest PROVIDED CLINICAL HISTORY: Respiratory insufficiency COMPARISON: 03/09/2019 FINDINGS: Significant interval change with respect to the prior examination is not apparent. IMPRESSION: As above.
--- NOTE | 2019-03-10 08:39 | PDOC.MOPN ---
Interval History: sedated/intubated, NAD - Vital Signs Vital Signs: Vital Signs (12 hours) Temp Pulse Resp BP Pulse Ox 03/10/19 08:13 125 H 03/10/19 07:58 125 H 27 H 98 03/10/19 05:40 18 03/10/19 05:00 98.1 F 03/10/19 04:00 18 03/10/19 02:34 123 H 121/77 03/10/19 02:33 122 H 25 H 100 03/10/19 02:00 25 H 03/09/19 23:56 20 03/09/19 23:55 98.5 F 03/09/19 22:20 108 H 147/84 H 03/09/19 22:19 107 H 16 100 03/09/19 22:00 17 Weight Admit Weight 145 lb 15.136 oz Weight 145 lb Most Recent Monitor Data Heart Rate from ECG 116 NIBP 126/82 NIBP BP-Mean 98 Respiration from ECG 28 SpO2 100 - Physical Exam General: Other (sedated, not responsive to touch or voice) HEENT: Atraumatic Lungs: Other (CTA ith some rhonchi) Cardiovascular: Regular rate, Other (tachy) Extremities: Other (2+ edema in layton UEs) - Labs Result Diagrams: 03/10/19 04:00 03/10/19 04:00 Lab results: Laboratory Results - last 24 hr 03/10/19 07:15: Specimen Type ARTERIAL, Puncture Site RRAD, Bicarbonate Actual 15.0 L, ABG pH 7.41, ABG pCO2 24.1 L*, ABG pO2 112.7 H, ABG O2 Sat Calc/Jamila 98.0, ABG O2 Content 13.4 L, ABG Base Excess -8.3 L, ABG Hematocrit 28.0 L, ABG Hemoglobin 9.6 L, ABG Oxyhemoglobin 97.4, ABG Carboxyhemoglobin 0.3, ABG Methemoglobin 0.30, ABG Deoxyhemoglobin 2.0, Suleman Test POSITIVE, A-a O2 Gradient 142.375 H, Ionized Calcium 1.16, Mode of Support SIMV-PC, % Minute Volume 14.3, Mechanical Rate 14, Spontaneous Rate 4, Inspired O2 40, Tidal Volume 912, Spontaneous Tidal Vol 414, Pressure Support 10, PEEP or CPAP 5.0, Sodium 143, Potassium 3.37 L, Chloride 118 H 03/10/19 04:00: WBC 0.3 L*, RBC 2.69 L, Hgb 8.9 L, Hct 25.4 L, MCV 94.3, MCH 33.0 H, MCHC 35.0, RDW 12.9, Plt Count 35 L, MPV 8.6, Neutrophils % (Manual) Not Reportable 03/10/19 04:00: Sodium 147 H, Potassium 3.5, Chloride 120 H, Carbon Dioxide 17 L , Anion Gap 14, BUN 92 H, Creatinine 1.51 H, Estimated GFR (MDRD) 47, Glucose 171 H, Calcium 8.1 03/10/19 00:11: POC Glucose 179 H 03/09/19 20:14: Sodium 148 H, Potassium 3.7, Chloride 120 H, Carbon Dioxide 17 L , Anion Gap 15, BUN 98 H, Creatinine 1.58 H, Estimated GFR (MDRD) 44, Glucose 228 H, Calcium 8.0 03/09/19 20:14: WBC 0.2 L*, RBC 2.86 L, Hgb 9.3 L, Hct 26.6 L, MCV 93.0, MCH 32.5 H, MCHC 35.0, RDW 13.0, Plt Count 43 L, MPV 8.1, Neutrophils # Not Reportable, Lymphocytes # Not Reportable, Plt Morphology Comment Appears Decreased L 03/09/19 18:47: POC Glucose 231 H 03/09/19 12:49: POC Glucose 249 H 03/09/19 12:00: Blood Type B NEGATIVE, Antibody Screen NEGATIVE, Crossmatch See Detail 03/09/19 04:26: Blood Type B NEGATIVE A/P - Problem (1) Acute respiratory failure with hypoxia Current Visit: Yes Code(s): J96.01 - ACUTE RESPIRATORY FAILURE WITH HYPOXIA Status: Acute (2) Pancytopenia Current Visit: Yes Code(s): D61.818 - OTHER PANCYTOPENIA Status: Acute (3) Malnutrition of moderate degree Current Visit: Yes Code(s): E44.0 - MODERATE PROTEIN-CALORIE MALNUTRITION Status: Chronic (4) Small cell carcinoma of right lung Current Visit: Yes Code(s): C34.91 - MALIGNANT NEOPLASM OF UNSP PART OF RIGHT BRONCHUS OR LUNG Status: Chronic (5) CHIQUITA (acute kidney injury) Current Visit: No Code(s): N17.9 - ACUTE KIDNEY FAILURE, UNSPECIFIED Status : Acute (6) Tobacco abuse Current Visit: No Code(s): Z72.0 - TOBACCO USE Status: Chronic - Plan Plan: 1. continue current care, francisco, abx 2. consider withdraw of carfe when family is ready 3. DNR 4. appreciate pulmonary help
[2019-03-10] MEDS: Dextrose 5% in Water 1,000 ML IV SCH (13:49)
--- NOTE | 2019-03-10 14:05 | EKG ---
Test Reason : STAT Blood Pressure : / mmHG Vent. Rate : 154 BPM Atrial Rate : 197 BPM P-R Int : 000 ms QRS Dur : 106 ms QT Int : 292 ms P-R-T Axes : 000 083 -87 degrees QTc Int : 467 ms Atrial fibrillation with rapid ventricular response Nonspecific ST and T wave abnormality Abnormal ECG When compared with ECG of 05-MAR-2019 19:37, (Unconfirmed) Atrial fibrillation has replaced Sinus rhythm Confirmed by BRIANA MANNING (2) on 03/10/2019 2:05:02 PM Referred By: Confirmed By:BRIANA MANNING
--- NOTE | 2019-03-10 19:13 | PDOC.HOSPP ---
- Subjective Encounter Date: 03/10/19 Encounter Time: 19:12 Subjective: Patient still intubated, unable to wean sedation. He did not tolerate tube feeds yesterday due to high residuals so they were held. D5W running at 75. Per nursing staff, they informed family of poor prognosis and patient may pass. Patients heart rate went up to 170 and patient went into some afib today which resolved. Urine output is good - Objective Vital Signs & Weight: Vital Signs (12 hours) Temp Pulse Resp BP Pulse Ox 03/10/19 18:36 100 135/70 03/10/19 18:35 99 20 100 03/10/19 18:00 20 03/10/19 16:00 98.1 F 19 03/10/19 14:38 167 H 125/78 03/10/19 14:19 167 H 31 H 100 03/10/19 14:00 19 03/10/19 12:00 98.0 F 18 03/10/19 10:41 123 H 17 100 03/10/19 10:00 19 03/10/19 08:13 125 H 03/10/19 08:00 98.7 F 18 100 03/10/19 07:58 125 H 27 H 98 Weight Admit Weight 145 lb 15.136 oz Weight 145 lb Most Recent Monitor Data Heart Rate from ECG 102 NIBP 132/73 NIBP BP-Mean 84 Respiration from ECG 27 SpO2 100 I&O: 03/09/19 03/10/19 03/11/19 06:59 06:59 06:59 Intake Total 2383.1 2263 1228.4 Output Total 2095 2175 970 Balance 288.1 88 258.4 Result Diagrams: 03/10/19 04:00 03/10/19 04:00 Additional Labs: Accuchecks 03/10/19 03/10/19 03/10/19 18:23 13:34 00:11 POC Glucose 209 H 249 H 179 H Hospitalist ROS - Review of Systems ROS unobtainable: due to endotracheal tube - Medication Medications: Active Medications Generic Name Dose Route Start Last Admin Trade Name Freq PRN Reason Stop Dose Admin Acetaminophen 650 mg 02/21/19 20:58 03/07/19 03:45 Tylenol PO 650 mg Q4H PRN Administration Headache/Fever/Mild Pain (1-3) Albuterol/Ipratropium 3 ml 02/21/19 22:30 03/10/19 18:35 Duoneb NEB 3 ml [id number] CHELSEA Administration Artificial Tears 2 drop 03/05/19 08:04 03/05/19 14:38 Tears Naturale EA EYE 2 drop Q4H PRN Administration Dry Eyes Digoxin 0.125 mg 03/07/19 09:00 03/10/19 08:13 Lanoxin SLOW IVP 0.125 mg DAILY CHELSEA Administration Sodium Chloride 1,000 mls @ 0 mls/hr 02/22/19 14:30 03/03/19 22:11 1/2 Normal Saline IV 1,000 mls .Q0M CHELSEA Administration KVO Fentanyl Citrate 2,000 mcg/ 100 mls @ 0 mls/hr 02/24/19 15:35 03/09/19 22:06 Sodium Chloride IV 03/26/19 15:35 100 mls INF CHELSEA Administration Protocol Per Protocol Palonosetron 0.25 mg/ Sodium 55 mls @ 165 mls/hr 02/27/19 11:30 02/27/19 14: 09 Chloride IVPB 55 mls WILLCALL CHELSEA Administration Dexamethasone Sodium Phosphate 51 mls @ 153 mls/hr 02/27/19 11:30 02/27/19 14 :09 10 mg/ Sodium Chloride IVPB 51 mls WILLCALL CHELSEA Administration Carboplatin 338.4 mg/ Sodium 283.84 mls @ 378.453 mls/hr 02/27/19 11:30 02/27 15:19 Chloride IVPB 283.84 mls WILLCALL CHELSEA Administration Etoposide 186 mg/ Sodium 509.3 mls @ 509.3 mls/hr 02/27/19 11:30 03/01/19 12: 13 Chloride IVPB 509.3 mls WILLCALL CHELSEA Administration Levofloxacin 750 mg/ Device 150 mls @ 100 mls/hr 03/01/19 09:00 03/09/19 08: 46 IVPB 150 mls Q2D@0900 CHELSEA Administration Cefepime HCl 1 gm/ Sodium 100 mls @ 200 mls/hr 03/06/19 03:00 03/10/19 15:00 Chloride IVPB 100 mls 0300,1500 CHELSEA Administration Midazolam HCl 100 mls @ 0 mls/hr 03/07/19 08:00 03/09/19 20:40 Versed IVPB 100 mls INF CHELSEA Administration Protocol Titrate Dextrose/Water 1,000 mls @ 75 mls/hr 03/09/19 09:30 03/10/19 13:49 D5w IV 1,000 mls .[id number] CHELSEA Administration Diltiazem HCl 125 mg/ 125 mls @ 5 mls/hr 03/10/19 14:15 03/10/19 14:36 Miscellaneous Medication 1 IVPB 125 mls each/ Sodium Chloride INF CHELSEA Administration Protocol Insulin Human Regular 0 units 03/08/19 07:47 03/10/19 18:22 Humulin R SC 4 unit .MODERATE SLIDING SC PRN Administration Moderate Correctional Scale Lorazepam 2 mg 02/24/19 15:35 02/27/19 17:07 Ativan SLOW IVP 03/26/19 15:35 2 mg Q1H PRN Administration Breakthrough agitation Methylprednisolone Sodium Succinate 10 mg 03/08/19 09:00 03/10/19 08:16 Solu-Medrol IVP 10 mg DAILY CHELSEA Administration Metoclopramide HCl 10 mg 02/28/19 07:45 03/10/19 13:50 Reglan IVP 10 mg Q6H CHELSEA Administration Morphine Sulfate 2 mg 02/24/19 15:35 03/03/19 12:52 Morphine SLOW IVP 03/26/19 15:35 2 mg Q1H PRN Administration BREAKTHROUGH PAIN/Agitation Ondansetron HCl 8 mg 03/01/19 07:53 03/03/19 19:46 Zofran IVP 8 mg Q6H PRN Administration Nausea/Vomiting Pantoprazole Sodium 40 mg 03/05/19 09:00 03/10/19 08:16 Protonix IVP 40 mg DAILY CHELSEA Administration Promethazine HCl 25 mg 02/23/19 15:25 02/23/19 22:09 Phenergan IM/IV 25 mg Q6H PRN Administration Nausea/Vomiting Sodium Chloride 10 ml 02/22/19 09:00 03/10/19 09:46 Flush - Normal Saline IVF 10 ml Q12HR CHELSEA Administration Sterile Water 1 ml 02/21/19 21:56 03/03/19 21:03 Bacteriostatic Water FS 1 ml PRN PRN Administration RECONSTITUTION Tbo-Filgrastim 480 mcg 03/06/19 09:00 03/10/19 09:44 Granix SC 480 mcg DAILY CHELSEA Administration - Exam General - other findings: intubated, sedated. Skin color seems very mottled Eye: PERRL, anicteric sclera ENT: normocephalic atraumatic, no oropharyngeal lesions Neck: supple, symmetric, no JVD, no thyromegaly Heart: RRR, no murmur, no gallops, no rubs Respiratory: CTAB, no wheezes, no rales, no ronchi Gastrointestinal: soft, non-tender, non-distended, normal bowel sounds Extremities: no cyanosis, no clubbing, no edema Skin: normal turgor, no lesions, no rashes Neurological: cranial nerve grossly intact, normal sensation to touch, no focal deficits, no new deficit Hosp A/P - Plan Chest X ray: stable appearance of right paratracheal mass MRI brain : multiple small lacunar infarctions CT thorax/abdomen/pelvis: large mediastinal conglomeration of masses on right invading left side and hilum with severe narrowing of airway at lower trachea and kacey, right mainstem bronchus and right lower lobe bronchus. Small to moderate size right pleural effusion. This is a 63 year old male who presented with neutropenic fever Acute hypoxic respiratory failure secondary to small cell lung cancer with trachea/mainstem bronchus compression - intubated and sedated, unable to wean sedation, not responsive or following commands - ABG consistent with compensated metabolic acidosis Neutropenic fever - WBC 0.2 today, on vancomyin D5, cefepime D5, levaquin day 6. No fevers. - sputum culture growing yeast, gram positive cocci. Body culture of pleural fluid negative, AFB negative, blood culture negative - continue neuopogen SC daily, may take two weeks to respond per Dr. 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 If normal can trial re-initiating tube feeds Metabolic acidosis - possibly from hyperchloremia - will check lactate Code status: DNR
--- NOTE | 2019-03-10 19:38 | RAD ---
XR Abdomen 1 View/KUB History: Tube placement Comparison: CT examination February 25, 2019 Findings: An enteric tube is in place with tip at the gastric body and side port above the GE junctio n. Moderate right effusion. Relative paucity of bowel gas. Impression: Enteric tube side port above the GE junction. Recommend advancing.
[2019-03-10 20:06] LABS: Lactic Acid 2.6 mmol/L (0.5-2.2)
--- NOTE | 2019-03-10 21:33 | PRG ---
DATE OF SERVICE: 03/10/2019 SUBJECTIVE: Paulino Beckford remains hemodynamically stable. OBJECTIVE: VITAL SIGNS: His blood pressure 135/68, heart rate is 100, respiratory rate is in the 20s, and oximetry is 100%. LUNGS: Remarkable for distant wheezes. HEART: Regular rhythm. ABDOMEN: Soft. EXTREMITIES: Without asymmetry. LABORATORY DATA: White count is 300, hemoglobin 8.9, and platelets 35. Electrolytes; sodium 147, potassium 3.5, chloride 120, bicarb 17, BUN 92, and creatinine 1.51. A pH of 7.41, CO2 of 24, and pO2 of 112. He developed SVT this afternoon. Cardizem was started. IMPRESSION AND PLAN: Respiratory failure associated with severe chronic obstructive pulmonary disease and small cell lung cancer. He has had endobronchial improvement of his obstructing lesion, but family saying that they want to withdraw support tomorrow. We will continue supportive care. Job ID: [id number]
[2019-03-11] MEDS: Cefepime 1 GM in Sodium Chloride 0.9% 100 ML IVPB SCH ×2 (02:05→14:07)
[2019-03-11] MEDS: Dextrose 5% in Water 1,000 ML IV SCH ×2 (02:05→16:46)
[2019-03-11] MEDS: Metoclopramide HCl 10 MG/2 ML VIAL IVP SCH ×4 (02:06→21:19)
[2019-03-11 05:37] LABS: Hemoglobin 8.6 g/dL (14.0-18.0); Mean Corpuscular HGB CONC 34.8 g/dL (32.0-36.0); Mean Corpuscular Hemoglobin 32.3 pg (27.0-31.0); Mean Platelet Volume 10.4 fL (7.4-10.4); Platelet Count 26 thou/uL (130-400); Red Blood Cell (RBC) Count 2.67 mill/uL (4.70-6.10); White Blood Cell (WBC) Count 0.7 thou/uL (4.8-10.8)
[2019-03-11 05:43] LABS: ALT (SGPT) 93 U/L (8-55); AST (SGOT) 60 U/L (5-34); Alkaline Phosphatase 114 U/L (40-110); Anion Gap 12 mmol/L (10-20); BUN (Urea Nitrogen) 83 mg/dL (8.4-25.7); Bilirubin, Total 0.8 mg/dL (0.2-1.2); Calc. Creatinine Clearance 45 mL/min (70-130); Calcium 7.7 mg/dL (7.8-10.44); Carbon Dioxide 16 mmol/L (23-31); Chloride 112 mmol/L (98-107); Estimated GFR-MDRD 45; Globulin 3.1 g/dL (2.4-3.5); Glucose 457 mg/dL (80-115); Potassium 3.6 mmol/L (3.5-5.1); Protein, Total 5.1 g/dL (5.8-8.1); Sodium 136 mmol/L (136-145)
[2019-03-11 06:14] LABS: Band 4 % (5-11); Lymphocytes 74 % (21-51); MDiff Complete? YES; Monocytes 12 % (0-10); Neutrophil 10 % (42-75); Nucleated RBC 1 % (0); Platelet Morphology Comment Appears Decreased
[2019-03-11] MEDS: Insulin Regular 300 UNITS/3 ML VIAL SC PRN ×2 (06:14→12:27)
[2019-03-11 07:18] LABS: Actual Bicarbonate (HCO3a) 14.4 mEq/L (22-28); Calcium, Ionized 1.21 mmol/L (1.12-1.30); Carboxyhemoglobin (COHb) 0.2 gm% (0.0-3.0); Hemoglobin (Hb) 11.3 g/dL (14.0-18.0); O2 Tension (PaO2) 102.6 mmHg (> 80.0); Potassium - ABG Lab 3.44 mmol/L (3.70-5.30); pH, Arterial 7.39 (7.35-7.45)
[2019-03-11 07:19] LABS: CO2 Tension 24.2 mmHg (35.0-45.0); Puncture Site RRA
--- NOTE | 2019-03-11 08:36 | PRG ---
DATE OF SERVICE: 03/11/2019 35 minutes critical time. SUBJECTIVE: The patient remains on mechanical ventilation. He is on Versed and fentanyl drip. His family is contemplating terminal extubation today. OBJECTIVE: VITAL SIGNS: Temperature 99.1, pulse 95, blood pressure 136/66, O2 saturation 100%. 24-hour intake 2138, output 1510. HEENT: Eyes are open. ET tube and OG tube in place. NECK: No adenopathy or JVD. LUNGS: Clear anteriorly. CARDIAC: S1-S2 regular on a Cardizem drip 2.5 mg an hour. ABDOMEN: Soft, nontender. EXTREMITIES: No clubbing, cyanosis, or edema. NEUROLOGICAL: He will not move to deep painful stimulation. LABORATORY DATA: White blood cell count 0.7, hematocrit 24.8, and platelet count 26. PH of 7.39, pCO2 24, PO2 102 on SIMV rate 14 FiO2, inspiratory pressure of 20. Sodium 136, potassium 3.6, chloride 112, CO2 of 16, BUN 83, creatinine 1.5, glucose read at 457, but usually running about 148-249. Digoxin level over the weekend was 0.83. ASSESSMENT: 1. Small cell lung cancer. 2. Acute respiratory failure requiring mechanical ventilation. 3. Critical illness myopathy/polyneuropathy. 4. Pancytopenia from chemotherapy. PLAN: I do not think he is weanable from a practical standpoint because of his critical illness myopathy/neuropathy. However, the family is wanting care to be withdrawn, so we will likely comply what their . I went ahead and stopped the Versed drip. I have put him on pressure support ventilation. I do not think he will do well once extubated. Job ID: [id number]
[2019-03-11] MEDS: Pantoprazole 40 MG VIAL IVP SCH (09:17)
[2019-03-11] MEDS: methylPREDNISolone Sod Succ 40 MG VIAL IVP SCH (09:17)
[2019-03-11] MEDS: Digoxin 0.5 MG/2 ML AMP SLOW IVP SCH (09:18)
[2019-03-11] MEDS ORDERED: Atropine Sulfate 1% Ophth Soln 5 ml Bottle PO PRN (09:45)
[2019-03-11] MEDS ORDERED: Scopolamine 1.5 mg/72 hour Patch TD SCH (09:45)
--- NOTE | 2019-03-11 10:03 | RAD ---
PORTABLE CHEST: Date: 03/11/19 HISTORY: Pneumonia. COMPARISON: 03/10/19. FINDINGS: Endotracheal and NG tubes remain in satisfactory position. Increased density over the right chest is a stable finding, as well as some parenchymal change in the left base. IMPRESSION: Stable overall exam. POS: SID
[2019-03-11 10:33] VITALS: TEMP 98.5
--- NOTE | 2019-03-11 11:40 | PDOC.HOSPP ---
- Subjective Encounter Date: 03/11/19 Encounter Time: 10:00 Subjective: Patient intubated and sedated. Breathing agonally currently. Dr. Torres is weaned off sedation for now, not extubated yet Per discussion with daughter, doesn't want to see him in pain any longer and wants to extubate but wants to call nephew. She states she has already informed all family members that he most likely has passed and has arranged for certificates - Objective Vital Signs & Weight: Vital Signs (12 hours) Temp Pulse Resp BP Pulse Ox 03/11/19 11:05 94 139/62 03/11/19 10:00 24 H 03/11/19 09:18 99 03/11/19 09:00 98.5 F 03/11/19 08:44 99 03/11/19 08:06 96 151/64 H 03/11/19 08:00 23 H 100 03/11/19 05:55 99.1 F 20 03/11/19 04:00 20 03/11/19 02:39 98 23 H 143/68 H 100 03/11/19 02:00 18 03/11/19 01:00 98.5 F 03/11/19 00:00 18 Weight Admit Weight 145 lb 15.136 oz Weight 145 lb Most Recent Monitor Data Heart Rate from ECG 93 NIBP 139/62 NIBP BP-Mean 82 Respiration from ECG 25 SpO2 100 I&O: 03/10/19 03/11/19 03/12/19 06:59 06:59 06:59 Intake Total 2203 2138.6 Output Total 2175 1510 105 Balance 28 628.6 -105 Result Diagrams: 03/11/19 05:00 03/11/19 05:00 Additional Labs: Accuchecks 03/11/19 03/10/19 03/10/19 00:50 18:23 13:34 POC Glucose 148 H 209 H 249 H Hospitalist ROS - Review of Systems ROS unobtainable: due to endotracheal tube - Medication Medications: Active Medications Generic Name Dose Route Start Last Admin Trade Name Freq PRN Reason Stop Dose Admin Acetaminophen 650 mg 02/21/19 20:58 03/07/19 03:45 Tylenol PO 650 mg Q4H PRN Administration Headache/Fever/Mild Pain (1-3) Albuterol/Ipratropium 3 ml 02/21/19 22:30 03/11/19 11:05 Duoneb NEB 3 ml [id number] CHELSEA Administration Artificial Tears 2 drop 03/05/19 08:04 03/05/19 14:38 Tears Naturale EA EYE 2 drop Q4H PRN Administration Dry Eyes Digoxin 0.125 mg 03/07/19 09:00 03/11/19 09:18 Lanoxin SLOW IVP 0.125 mg DAILY CHELSEA Administration Fentanyl Citrate 2,000 mcg/ 100 mls @ 0 mls/hr 02/24/19 15:35 03/09/19 22:06 Sodium Chloride IV 03/26/19 15:35 100 mls INF CHELSEA Administration Protocol Per Protocol Palonosetron 0.25 mg/ Sodium 55 mls @ 165 mls/hr 02/27/19 11:30 02/27/19 14: 09 Chloride IVPB 55 mls WILLCALL CHELSEA Administration Dexamethasone Sodium Phosphate 51 mls @ 153 mls/hr 02/27/19 11:30 02/27/19 14 :09 10 mg/ Sodium Chloride IVPB 51 mls WILLCALL CHELSEA Administration Carboplatin 338.4 mg/ Sodium 283.84 mls @ 378.453 mls/hr 02/27/19 11:30 02/27 15:19 Chloride IVPB 283.84 mls WILLCALL CHELSEA Administration Etoposide 186 mg/ Sodium 509.3 mls @ 509.3 mls/hr 02/27/19 11:30 03/01/19 12: 13 Chloride IVPB 509.3 mls WILLCALL CHELSEA Administration Levofloxacin 750 mg/ Device 150 mls @ 100 mls/hr 03/01/19 09:00 03/11/19 09: 18 IVPB 150 mls Q2D@0900 CHELSEA Administration Cefepime HCl 1 gm/ Sodium 100 mls @ 200 mls/hr 03/06/19 03:00 03/11/19 02:05 Chloride IVPB 100 mls 0300,1500 CHELSEA Administration Dextrose/Water 1,000 mls @ 75 mls/hr 03/09/19 09:30 03/11/19 02:05 D5w IV 1,000 mls .[id number] CHELSEA Administration Diltiazem HCl 125 mg/ 125 mls @ 5 mls/hr 03/10/19 14:15 03/10/19 14:36 Miscellaneous Medication 1 IVPB 125 mls each/ Sodium Chloride INF CHELSEA Administration Protocol Insulin Human Regular 0 units 03/08/19 07:47 03/11/19 06:14 Humulin R SC 10 unit .MODERATE SLIDING SC PRN Administration Moderate Correctional Scale Lorazepam 2 mg 02/24/19 15:35 02/27/19 17:07 Ativan SLOW IVP 03/26/19 15:35 2 mg Q1H PRN Administration Breakthrough agitation Methylprednisolone Sodium Succinate 10 mg 03/08/19 09:00 03/11/19 09:17 Solu-Medrol IVP 10 mg DAILY CHELSEA Administration Metoclopramide HCl 10 mg 02/28/19 07:45 03/11/19 09:17 Reglan IVP 10 mg Q6H CHELSEA Administration Morphine Sulfate 2 mg 02/24/19 15:35 03/03/19 12:52 Morphine SLOW IVP 03/26/19 15:35 2 mg Q1H PRN Administration BREAKTHROUGH PAIN/Agitation Ondansetron HCl 8 mg 03/01/19 07:53 03/03/19 19:46 Zofran IVP 8 mg Q6H PRN Administration Nausea/Vomiting Pantoprazole Sodium 40 mg 03/05/19 09:00 03/11/19 09:17 Protonix IVP 40 mg DAILY CHELSEA Administration Promethazine HCl 25 mg 02/23/19 15:25 02/23/19 22:09 Phenergan IM/IV 25 mg Q6H PRN Administration Nausea/Vomiting Scopolamine 3 mg 03/11/19 09:45 03/11/19 10:37 Transderm Scop TD 3 mg Q3D CHELSEA Administration Sodium Chloride 10 ml 02/22/19 09:00 03/11/19 09:18 Flush - Normal Saline IVF 10 ml Q12HR CHELSEA Administration Sterile Water 1 ml 02/21/19 21:56 03/03/19 21:03 Bacteriostatic Water FS 1 ml PRN PRN Administration RECONSTITUTION Tbo-Filgrastim 480 mcg 03/06/19 09:00 03/10/19 09:44 Granix SC 480 mcg DAILY CHELSEA Administration - Exam General - other findings: intubateed and sedated, skin appears mottled, agonal breathing Eye: PERRL, anicteric sclera ENT: normocephalic atraumatic, no oropharyngeal lesions Neck: supple, symmetric, no JVD, no thyromegaly Heart: RRR, no murmur, no gallops, no rubs Respiratory: CTAB, no wheezes, no rales, no ronchi Gastrointestinal: soft, non-tender, non-distended, normal bowel sounds Extremities: no cyanosis, no clubbing, no edema Skin: normal turgor, no lesions, no rashes Neurological: cranial nerve grossly intact, normal sensation to touch, no focal deficits, no new deficit Musculoskeletal: normal tone, normal strength, no muscle wasting Psychiatric: normal affect, normal behavior, A&O x 3, oriented to person Hosp A/P - Plan Chest X ray: stable appearance of right paratracheal mass MRI brain : multiple small lacunar infarctions CT thorax/abdomen/pelvis: large mediastinal conglomeration of masses on right invading left side and hilum with severe narrowing of airway at lower trachea and kacey, right mainstem bronchus and right lower lobe bronchus. Small to moderate size right pleural effusion. 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 No fevers. - sputum culture growing yeast, gram positive cocci. Body culture of pleural fluid negative, AFB negative, blood culture negative - continue neuopogen SC daily, may take two weeks to respond per Dr. 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 If normal can trial re-initiating tube feeds Metabolic acidosis - possibly from hyperchloremia - lactic acid 2.6 Transaminitis - unclear etiology, possibly from shock liver Code status: DNR
[2019-03-11] MEDS: Morphine 2 MG/ML SYRINGE SLOW IVP PRN ×5 (12:33→22:30)
[2019-03-11] MEDS: Lorazepam 2 MG/ML VIAL SLOW IVP PRN ×4 (12:49→22:31)
[2019-03-11 14:42] VITALS: BP 135/71
--- NOTE | 2019-03-11 15:50 | PDOC.MOPN ---
Interval History: per nurse, family planning terminal extubation today. - Vital Signs Vital Signs: Vital Signs (12 hours) Temp Pulse Resp BP Pulse Ox 03/11/19 14:39 92 135/71 03/11/19 14:00 24 H 03/11/19 12:00 27 H 03/11/19 11:05 94 139/62 03/11/19 10:00 24 H 03/11/19 09:18 99 03/11/19 09:00 98.5 F 03/11/19 08:44 99 03/11/19 08:06 96 151/64 H 03/11/19 08:00 23 H 100 03/11/19 05:55 99.1 F 20 03/11/19 04:00 20 Weight Admit Weight 145 lb 15.136 oz Weight 145 lb Most Recent Monitor Data Heart Rate from ECG 95 NIBP 145/70 NIBP BP-Mean 89 Respiration from ECG 23 SpO2 100 - Physical Exam General: No acute distress Lungs: Other (remains on vent) Cardiovascular: Other (tachy) - Labs Result Diagrams: 03/11/19 05:00 03/11/19 05:00 Lab results: Laboratory Results - last 24 hr 03/11/19 12:25: POC Glucose 203 H 03/11/19 07:10: Specimen Type ARTERIAL, Puncture Site RRA, Bicarbonate Actual 14.4 L, ABG pH 7.39, ABG pCO2 24.2 L*, ABG pO2 102.6 H, ABG O2 Sat Calc/Jamila 97.1, ABG O2 Content 15.5 L, ABG Base Excess -9.0 L, ABG Hematocrit 33.0 L, ABG Hemoglobin 11.3 L, ABG Oxyhemoglobin 96.6, ABG Carboxyhemoglobin 0.2, ABG Methemoglobin 0.30, ABG Deoxyhemoglobin 2.9, Suleman Test POSITIVE, A-a O2 Gradient 152.350 H, Ionized Calcium 1.21, Mode of Support SIMV/PC, Mechanical Rate 17, Spontaneous Rate 9, Inspired O2 40, Inspiratory Time 0.75, Tidal Volume 717, Spontaneous Tidal Vol 387, Pressure Support 10, PEEP or CPAP 5.0, Sodium 144, Potassium 3.44 L, Chloride 116 H 03/11/19 05:00: WBC 0.7 L*, RBC 2.67 L, Hgb 8.6 L, Hct 24.8 L, MCV 93.0, MCH 32.3 H, MCHC 34.8, RDW 13.0, Plt Count 26 L*, MPV 10.4, Neutrophils % (Manual) 10 L, Band Neuts % (Manual) 4 L, Lymphocytes % (Manual) 74 H, Monocytes % ( Manual) 12 H, Neutrophils # Not Reportable, Lymphocytes # Not Reportable, Nucleated RBCs # (Man) 1 H, Plt Morphology Comment Appears Decreased L 03/11/19 05:00: Sodium 136, Potassium 3.6, Chloride 112 H, Carbon Dioxide 16 L, Anion Gap 12, BUN 83 H, Creatinine 1.55 H, Estimated GFR (MDRD) 45, Glucose 457 H, Calcium 7.7 L, Total Bilirubin 0.8, AST 60 H, ALT 93 H, Alkaline Phosphatase 114 H, Serum Total Protein 5.1 L, Albumin 2.0 L, Globulin 3.1, Albumin/Globulin Ratio 0.6 L 03/11/19 00:50: POC Glucose 148 H 03/10/19 19:36: Lactic Acid 2.6 H 03/10/19 18:23: POC Glucose 209 H Status: lab reviewed by me A/P - Problem (1) Acute respiratory failure with hypoxia Current Visit: Yes Code(s): J96.01 - ACUTE RESPIRATORY FAILURE WITH HYPOXIA Status: Acute (2) Lung mass Current Visit: Yes Code(s): R91.8 - OTHER NONSPECIFIC ABNORMAL FINDING OF LUNG FIELD Status: Acute (3) Pancytopenia Current Visit: Yes Code(s): D61.818 - OTHER PANCYTOPENIA Status: Acute - Plan Plan: Stop granix supportive care will respect family wishes
[2019-03-12] MEDS: Lorazepam 2 MG/ML VIAL SLOW IVP PRN (00:06)
--- NOTE | 2019-03-12 14:55 | DIS ---
DATE OF ADMISSION: 02/21/2019 DATE OF DISCHARGE: 03/11/2019 DATE OF : 03/11/2019 DISCHARGE DIAGNOSES: 1. Acute hypoxic respiratory failure secondary to small cell lung cancer with tracheal and mainstem bronchus compression 2. Neutropenic fever, 3. Thrombocytopenia 4. Small cell lung cancer with metastasis to the liver and right iliac bone 5.Infrarenal abdominal aortic aneurysm 6. Hyponatremia 7. acute kidney injury 8. Malnutrition, on tube feeds 9. Metabolic acidosis 10. Transaminitis. CONSULTATIONS: 1. Oncology with Dr. Antonio Manzano and Dr. Lanny Muñoz. 2. Critical Care with Dr. Jad Cunningham. 3. Dr. Theo Flores with Neurology. PROCEDURES: thoracentesis, intubation s/p terminal extubation, chemotherapy BRIEF HISTORY OF PRESENT ILLNESS: This is a 63-year-old male with past medical history of COPD, CAD, tobacco abuse, who presented as a transfer from [facility] for respiratory distress and hypoxia, currently on BiPAP. The patient was unable to verbalize any complaints due to increased risk of breathing. The patient had a CT scan of his chest, which showed a large infiltrating right hilar and mediastinal mass with tracheal and right bronchus involvement concerning for malignancy as well as a potential malignant right- sided pleural effusion with metastases to his liver and left adrenal glands. The patient was admitted to the ICU on BiPAP. #Acute hypoxic respiratory failure secondary to small cell lung cancer with tracheal and mainstem bronchus compression #Neutropenic fever; #Small cell lung cancer with metastasis to the liver and right iliac bone #Infrarenal abdominal aortic aneurysm #Hyponatremia #Acute kidney injury #Malnutrition, on tube feeds #Metabolic acidosis #Transaminitis. The patient underwent thoracentesis on 02/22, which showed cloudy and turbid fluid, 4363 white blood cells, pleural fluid pH of 7.24, LDH of 1043. 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 On 02/24, the patient's respiratory status worsened and he required intubation. The patient underwent a bronchoscopy on the which showed brushings from the right mainstem bronchus that were positive for small cell carcinoma. Oncology was consulted and the patient was started on chemotherapy with carboplatin. The patient received his first dose of carboplatin on the , and was also started on Neulasta. The patient's white blood cell count was initially 11.1 on the . However, after receiving chemotherapy, the patient's white count dropped to 2.7 on the . His white count continued to drop and went to a amor of 0.2 on the . He was treated for neutropenic fever after spiking temperature to 101 on the and with vancomycin, cefepime and levaquin. Chest X ray showed right sided opacity and worsening of right pleural effusion. Blood cultures were negative. Sputum cultures were growing yeast and gram-positive cocci and body cultures of his pleural fluid were negative. AFB cultures were negative as well. The patient was also started on IV Micafungin as well for the yeast. On the , his white blood cell count did increase slightly to 0.7. Serial blood gases showed improvement to a pH of 7.4. However, after approximately two weeks on ventilator and inability to wean the patient off, goals of care discussion with the sister was that they would like to proceed with comfort measures and they did not want PEG tube or other artificial measures. Palliative Care was consulted. They elected for the patient to be made a DNR/DNI. On the , the patient was noted to have agonal breathing. He also was unable to tolerate his tube feeds due to high residuals. After goals of care discussion with the patient's sister, she elected to terminally extubate the patient. The patient was terminally extubated on the . The patient at 11:23 pm on the . #Thrombocytopenia #Acute Kidney Injury During his hospital course, the patient also had some problems with acute kidney injury, for which the patient received IV fluids. The patient also had received platelet transfusion for platelet count of 13 that occurred after chemotherapy. PLatelet counts improved, however patient eventually was made comfort care. DISCHARGE PHYSICAL EXAMINATION: Patient with no heart sounds, breath sounds, corneal or pupillary reflexes. He is unresponsive to sternal rub. PERTINENT LABS: -white blood cell count of 0.7, hemoglobin of 8.6, hematocrit of 24.8. BMP : creatinine of 1.55. LFTs: AST was 60, ALT 93, alkaline phosphatase 114. PERTINENT IMAGING STUDIES: CT brain 02/26: showed no acute intracranial hemorrhage. CT abdomen, chest, and pelvis on 02/24 : large mediastinal conglomeration of masses concerning for a malignant primary neoplasm such as lung cancer centered on the right side, but it is also invading the left side. The patient had severe narrowing of the airway at the lower trachea and kacey, right mainstem bronchus, and right lower lobe bronchus. There is a [id number] right-sided pleural effusion. There are several tiny subcentimeter ill-defined focal densities in the left and right lobes of the liver. There is also solitary osteoblastic metastasis versus bone island. MRI brain 02/26 :showed small-vessel disease with no acute infarction. Abdominal x-ray on the :paucity of bowel gas. Chest x-ray on the :increasing density over the right chest, which is stable. DISCHARGE CONDITION: Patient . DISPOSITION: The patient to be discharged to the [facility] with arrangements to be made by the patient's sister. Job ID: [id number] MTDD
--- NOTE | 2019-03-12 17:37 | EKG ---
Test Reason : RHYTHM CHANGE Blood Pressure : / mmHG Vent. Rate : 162 BPM Atrial Rate : 163 BPM P-R Int : 000 ms QRS Dur : 094 ms QT Int : 294 ms P-R-T Axes : 000 087 -87 degrees QTc Int : [address] elevation consider lateral injury or acute infarct ACUTE RI / STEMI Abnormal ECG When compared with ECG of 06-MAR-2019 02:30, Sinus rhythm has replaced Atrial fibrillation ST more depressed in Inferior leads ST now depressed in Anterolateral leads Inverted T waves have replaced nonspecific T wave abnormality in Inferior leads T wave inversion now evident in Anterolateral leads Confirmed by BRIANA MANNING (2) on 03/12/2019 5:36:30 PM Referred By: HOA Confirmed By:BRIANA MANNING
--- NOTE | 2019-03-12 17:38 | EKG ---
Test Reason : STAT Blood Pressure : / mmHG Vent. Rate : 145 BPM Atrial Rate : 145 BPM P-R Int : 130 ms QRS Dur : 102 ms QT Int : 266 ms P-R-T Axes : 046 090 -63 degrees QTc Int : 413 ms Sinus tachycardia Rightward axis Abnormal QRS-T angle, consider primary T wave abnormality Abnormal ECG When compared with ECG of 29-JUL-2018 17:33, Vent. rate has increased BY [address] no longer elevated in Inferior leads Nonspecific T wave abnormality now evident in Inferior leads Nonspecific T wave abnormality now evident in Lateral leads Confirmed by BRIANA MANNING (2) on 03/12/2019 5:37:33 PM Referred By: Confirmed By:BRIANA MANNING
== END 2019-03-11 23:23 | disposition expired | DRG 207 ==
LOC: ERS 17:35 → CCU 22:10 → IMCU/EMU 22:10 → CCU 02-24 10:21
PROVIDERS: ADMIT Internal Medicine; ATTEND Internal Medicine
PROC: 0W993ZZ Drainage of Right Pleural Cavity, Percutaneous Approach (ICD-10-PCS; 2019-02-22)
PROC: 5A1955Z Respiratory Ventilation, Greater than 96 Consecutive Hours (ICD-10-PCS; principal; 2019-02-24)
PROC: 0BH18EZ Insertion of Endotracheal Airway into Trachea, Via Natural or Artificial Opening Endoscopic (ICD-10-PCS; 2019-02-24)
PROC: 0BD38ZX Extraction of Right Main Bronchus, Via Natural or Artificial Opening Endoscopic, Diagnostic (ICD-10-PCS; 2019-02-24)
PROC: 5A09457 Assistance with Respiratory Ventilation, 24-96 Consecutive Hours, Continuous Positive Airway Pressure (ICD-10-PCS; 2019-02-24)
PROC: 3E03305 Introduction of Other Antineoplastic into Peripheral Vein, Percutaneous Approach (ICD-10-PCS; 2019-02-27)
PROC: 30233R1 Transfusion of Nonautologous Platelets into Peripheral Vein, Percutaneous Approach (ICD-10-PCS; 2019-03-09)
PROC: 0BJ08ZZ Inspection of Tracheobronchial Tree, Via Natural or Artificial Opening Endoscopic (ICD-10-PCS; 2019-03-11)
DX: C34.01 Malignant neoplasm of right main bronchus (principal); J96.01 Acute respiratory failure with hypoxia; D61.810 Antineoplastic chemotherapy induced pancytopenia; E88.3 Tumor lysis syndrome; J44.1 Chronic obstructive pulmonary disease with (acute) exacerbation; J91.0 Malignant pleural effusion; J98.11 Atelectasis; N17.9 Acute kidney failure, unspecified; E44.0 Moderate protein-calorie malnutrition; C78.7 Secondary malignant neoplasm of liver and intrahepatic bile duct; C79.51 Secondary malignant neoplasm of bone; G62.81 Critical illness polyneuropathy; G72.81 Critical illness myopathy; G81.94 Hemiplegia, unspecified affecting left nondominant side; E87.0 Hyperosmolality and hypernatremia; E87.2 Acidosis; Z68.1 Body mass index [BMI] 19.9 or less, adult; I47.1 Supraventricular tachycardia; Z66 Do not resuscitate; Z51.5 Encounter for palliative care; J39.8 Other specified diseases of upper respiratory tract; F41.9 Anxiety disorder, unspecified; I25.10 Atherosclerotic heart disease of native coronary artery without angina pectoris; F43.10 Post-traumatic stress disorder, unspecified; I71.4 Abdominal aortic aneurysm, without rupture; E87.5 Hyperkalemia; T45.1X5A Adverse effect of antineoplastic and immunosuppressive drugs, initial encounter; R50.81 Fever presenting with conditions classified elsewhere; I25.2 Old myocardial infarction; Z28.21 Immunization not carried out because of patient refusal; Z79.899 Other long term (current) drug therapy; Z87.891 Personal history of nicotine dependence; Z86.73 Personal history of transient ischemic attack (TIA), and cerebral infarction without residual deficits
CPT/HCPCS: 36415; 36416; 36430; 70450; 70553; 71045; 71260; 74018; 74177; 80048; 80053; 80162; 80202; 82805; 82945; 83605; 83615; 84157; 84550; 85025; 85060; 86850; 86900; 86901; 87040; 87070; 87116; 87205; 87206; 88112; 88305; 88312; 88341; 88342; 89051; 93005; 93010; 94002; 94003; 94640; 94660; 96374; C9113; J0692; J1100; J1160; J1447; J1650; J1815; J1956; J2060; J2248; J2250; J2270; J2405; J2469; J2550; J2704; J2765; J2920; J3010; J3370; J3490; J7050; J7512; J7620; J9045; J9181; P9035; Q9967